=== PATIENT | female | born 1940 | race Caucasian/White ===

== ENCOUNTER 2017-04-12 21:08 | Observation (INO) ==
[2017-04-12] MEDS ORDERED: Aspirin 81 MG TAB.CHEW PO ONE (21:10)
[2017-04-12] MEDS ORDERED: 0.9 % Sodium Chloride 500 ML IVC ONE (21:10)
[2017-04-12 21:50] LABS: Basophils % 0.7 %; Eosinophils # 0.4 K/mcL (0.0-0.6); Eosinophils % 6.9 %; Hematocrit 32.4 % (35.3-44.9); Hemoglobin 10.7 g/dL (11.5-15.4); Immature Granulocytes % 0.4 % (0-4); Lymphocytes # 1.7 K/mcL (0.6-4.6); Lymphocytes % 30.5 %; Mean Corpuscular Hemoglobin 30.9 pg (28.0-33.3); Mean Corpuscular Volume 93.6 fL (83.0-100.0); Mean Platelet Volume 10.5 fL (9.4-12.4); Monocytes # 0.4 K/mcL (0.0-1.3); Monocytes % 7.4 %; Platelet Count 224 K/mcL (140-400); Red Blood Count 3.46 M/mcL (3.82-4.97); Red Cell Distribution Width 13.6 % (11.5-14.5); Segmented Neutrophils % 54.1 %
[2017-04-12 21:54] LABS: INR 1.3; Prothrombin Time 14.1 Seconds (9.4-12.1)
[2017-04-12 21:57] LABS: Activated Partial Thrombo Time 43.4 Seconds (26.0-36.0)
[2017-04-12] MEDS: Nitroglycerin 0.4 MG TAB.SUBL SL ONE ×3 (22:00→22:10)
[2017-04-12 22:04] LABS: Alanine Aminotransferase 39 Units/L (0-55); Albumin 3.6 g/dL (3.5-5.0); Albumin/Globulin Ratio 1.4 (1.1-2.2); Alkaline Phosphatase 21 Units/L (38-126); Aspartate Amino Transferase 67 Units/L (5-34); BUN/Creatinine Ratio 27 (6-26); Bilirubin,Direct 0.1 mg/dL (0.0-0.5); Bilirubin,Indirect 0.2 mg/dL (0.0-1.2); Bilirubin,Total 0.3 mg/dL (0.2-1.2); Blood Urea Nitrogen 20 mg/dL (7-20); Calcium 8.5 mg/dL (8.6-10.8); Carbon Dioxide 29 mEq/L (19-29); Chloride 100 mEq/L (98-109); Globulin 2.5 g/dL (2.4-3.5); Glucose 147 mg/dL (70-99); Lipase 53 Units/L (8-78); Osmolality,Calculated 289 (280-300); Potassium 3.8 mEq/L (3.5-4.5); Sodium 137 mEq/L (136-145); Total Protein 6.1 g/dL (6.0-8.3); eGFR For African Americans > 60 (> 60); eGFR For Non-African Americans > 60 (> 60)
--- NOTE | 2017-04-12 22:34 | Emergency Department Note ---
Disposition Clinical Impression: Syncope Qualifiers: Syncope type: unspecified Qualified Code(s): R55 - Syncope and collapse Closed head injury Qualifiers: Encounter type: initial encounter Qualified Code(s): S09.90XA - Unspecified injury of head, initial encounter Fall Qualifiers: Encounter type: initial encounter Qualified Code(s): W19.XXXA - Unspecified fall, initial encounter Chest pain Qualifiers: Chest pain type: unspecified Qualified Code(s): R07.9 - Chest pain, unspecified Disposition: Admitted As Inpatient Condition: Good Forms: ED Satisfaction Letter Time of Disposition: 22:50 General Adult HPI - General Chief complaint: ED Chest Pain Stated complaint: chest pain Time Seen by Provider: 04/12/17 21:09 Source: EMS Limitations: no limitations Nursing Notes Reviewed: Yes Vital Signs Reviewed: Yes - History of Present Illness HPI Narrative: Patient presents her home by EMS for evaluation of chest pain status post syncopal event today. Patient said she was walking through her holosystolic Felicity Cutler headache and then woke up on the floor. After the event she started chest pain. Denies any other issues at this time. Patient was just seen and evaluated in the hospital for angina and was discharged home after having a car stress test performed Onset (ago): Just COORDINATING PRODUCER Location: head, chest Radiation: non-radiation Pain Scale: 5 Quality: sharp Consistency: constant Improves with: nothing Worsens with: nothing Associated symptoms: Reports: headaches Treatments Prior to Arrival: none - Related Data Home Medications Medication Instructions Recorded Confirmed Atorvastatin [Lipitor] 20 mg PO HS 04/10/15 04/12/17 Buspirone [Buspar] 15 mg PO TID 04/17/15 04/12/17 Cyclosporine [Restasis] 1 drop OP BID 11/19/15 04/12/17 Sertraline [Zoloft] 100 mg PO DAILY 11/19/15 04/12/17 Fish Oil/Dha/Epa [Fish Oil 1,200 1,200 mg PO DAILY 03/29/16 04/12/17 mg Fish Oil] Fluticasone Propionate Nasal 1 spray NS DAILY 03/29/16 04/12/17 [Flonase] Polyvinyl Alcohol/Povidone/Pf 1 drop OP QID 03/29/16 04/12/17 [Refresh Classic Eye Drops] metFORMIN [Glucophage] 1,000 mg PO BIDWM 04/08/16 04/12/17 clonazePAM [Klonopin] 0.5 mg PO TID 06/04/16 04/12/17 Amlodipine Besylate 10 mg PO DAILY 08/29/16 04/12/17 Lisinopril [Zestril] 40 mg PO DAILY 08/29/16 04/12/17 hydroCHLOROthiazide 25 mg PO DAILY 08/29/16 04/12/17 [Hydrochlorothiazide] Bimatoprost [Lumigan] 1 drop OP HS 03/23/17 04/12/17 Diphenoxylate/Atropine [Lomotil 1 each PO TID PRN 03/23/17 04/12/17 2.5 mg/0.025 mg] Loperamide HCl [Anti-Diarrheal] 2 mg PO QID PRN 03/23/17 04/12/17 Doxycycline Hyclate [Morgidox] 50 mg PO DAILY 04/12/17 04/12/17 Omeprazole [PriLOSEC] 40 mg PO DAILY 04/12/17 04/12/17 Previous Rx's Medication Instructions Recorded Carvedilol [Coreg] 6.25 mg PO BIDWM #60 tablet 04/01/16 Nitroglycerin 0.4 mg SL Q5MIN PRN #30 tab.subl 04/01/16 MDD 3 dose Rivaroxaban [Xarelto] 20 mg PO DAILY #7 tablet 11/26/16 Allergies Allergy/AdvReac Type Severity Reaction Status Date / Time clonidine Allergy Swelling Verified 11/27/16 20:58 of Lip/Tongue/Throat citalopram [From Celexa] AdvReac Hypertensio Verified 11/27/16 20:58 n All systems ED: reviewed and negative except as stated. Review of Systems: As Per HPI Constitutional: Denies: fever, chills, weakness Eyes: Denies: eye pain, vision change Cardiovascular: Reports: chest pain, syncope. Denies: palpitations, dyspnea on exertion, orthopnea, edema Respiratory: Denies: cough, dyspnea, wheezes, hemoptysis Gastrointestinal: Denies: abdominal pain, nausea, vomiting, diarrhea, constipation Genitourinary: Denies: urgency, dysuria, frequency, hematuria Musculoskeletal: Denies: back pain, neck pain Neurological: Reports: headache. Denies: weakness, numbness Psychiatric: Reports: anxiety. Denies: depression, suicidal thoughts, homicidal thoughts Endocrine: Denies: fatigue Past Medical History - Past Medical History Attestation: Yes The following information was validated with the patient. Source: patient Medical history: Reports: arthritis, coronary artery disease, DVT, diabetes, hyperlipidemia, hypertension, osteoporosis, RA, other Surgical history: Reports: carotid endarterectomy (Bilateral), cataract (Left), hysterectomy (One ovary remains), splenectomy, other Psychiatric history: Reports: no psych history, anxiety, depression ORCHARD HAND history: Reports: no ORCHARD HAND history - Social History Smoking Status: Never smoker Smokeless Tobacco Status: No Alcohol use: Reports: none Drug use: Reports: none Physical Exam - General Limitations: no limitations General appearance: alert, in no apparent distress - Head Head exam: atraumatic, normocephalic, normal inspection - Eye Eye exam: Present: normal appearance, PERRL, EOMI. Absent: miosis, mydriasis - ENT ENT exam: normal exam, normal oropharynx, mucous membranes moist - Neck Neck exam: Present: normal inspection, full ROM, trachea midline. Absent: tenderness, meningismus, lymphadenopathy - Chest Chest inspection: Present: normal inspection, symmetric chest wall rise. Absent : tenderness - Respiratory Respiratory exam: Present: normal lung sounds bilaterally. Absent: respiratory distress, wheezes, accessory muscle use - Cardiovascular Cardiovascular exam: Present: regular rate, normal rhythm, normal heart sounds - Abdominal Exam Abdominal exam: Present: soft, Non-Tender, normal bowel sounds. Absent: tenderness, distention, guarding, rebound, rigidity, obturator sign, Davison's sign, Rovsing's sign, tenderness at McBurney's Point - Extremities Exam Extremities exam: Present: normal inspection, full ROM, normal capillary refill. Absent: tenderness - Back Exam Back exam: Present: normal inspection, full ROM. Absent: tenderness, CVA tenderness (R), CVA tenderness (L) - Neurological Exam Neurological exam: Present: alert, oriented X3, CN II-XII intact, normal gait - Psychiatric Psychiatric exam: Present: depressed, anxious - Skin Skin exam: Present: warm, dry, intact, normal color Course Course Narrative: Patient seen and examined the time of arrival. See history of present illness. Patient presents emergency room by EMS for evaluation of chest discomfort status post syncopal event today. She was just discharged from the hospital within last 24 hours. She was seen and evaluated for chest pain at time of discharge home with a diagnosis of angina. Patient was home for just under 16 hours prior to having this event today. She denied any other trauma accident in the back of her head. Since then she has had discomfort in the back of her head but no pain in her neck. Prior to the Patient denied any palpitations chest pain fevers chills nausea vomiting or diarrhea. Denied any medication usage or cane in medications time. She has known anxiety with panic related issues but this feels different to her at this time. Vital signs on presentation otherwise stable. EKG reviewed from the ambulance shows normal sinus rhythm. EKG completed here in our emergency room shows sinus rhythm as compared to EKG performed 2 days ago and is identical morphology. Patient does not show any acute signs of tachycardia. Patient on physical exam is resting comfortably in the bed her head is atraumatic her pupils are equal round and reactive to light. She has no midline tenderness to the cervical thoracic or lumbar spine. She has no gross deformity to the extremities. Lungs are clear heart is regular. She has no crepitus or deformity to the chest wall status post a fall. Her chest pain symptoms are not reproducible on exam. Abdomen is soft nontender nondistended no guarding or rigidity. She has no pitting edema in lower extremities and is no other visible signs of trauma. Patient is concerning for head related injury as well as cardiac source to her syncopal event here today. Anginal symptoms at this time could be status post trauma or anxiety driven but the etiology is concerning secondary to they describe syncopal issue today. CT imaging of the chest chest x-ray EKG troponin labs including detailed cardiac evaluation to be completed at this time. Chest x-ray also pending. Disposition will most likely be admission to the hospital for definitive management of syncopal event here today. - Reevaluation(s) Reevaluation #1: CT imaging of the head is negative for acute intracranial pathology. There is no bleeding noted on exam. Chest is negative for acute infiltrate or infectious etiology. Labs appear stable and at baseline. Hemoglobin is baseline at this time. Troponin is negative. Patient 8 as well as the family discussed the recommendation for admission secondary to syncopal event. There both comfortable with this plan. Patient will be admitted to the hospital this time for syncopal evaluation and anginal-like presentation. Patient is otherwise stable at this point comfortable in the bed pain medication provided after 3 nitroglycerin tablets did not help with her symptoms for chest pain at this point Time: 22:47 Reevaluation #2: Patient was discussed with the hospitalist Dr. loco. Detailed review of the presentation symptoms and recent medical evaluation were discussed. No other recommendations from him at this time. We will continue to monitor here and so the admission process is completed. Time: 23:08 Vital Signs Temperature 98 F 04/12/17 21:09 Pulse Rate 60 04/12/17 21:09 Respiratory Rate 18 04/12/17 21:09 Blood Pressure 137/72 04/12/17 21:09 O2 Sat by Pulse Oximetry 96 04/12/17 21:09 Temperature 98 F 04/12/17 21:09 Pulse Rate 60 04/12/17 21:39 Respiratory Rate 18 04/12/17 21:39 Blood Pressure 130/66 04/12/17 21:39 O2 Sat by Pulse Oximetry 98 04/12/17 21:39 Oxygen Delivery Oxygen Delivery Room Air Medical Decision Making - MDM Narrative Medical decision making narrative: Syncope, chest pain, fall, closed head injury - Medical Records Medical records reviewed: Yes I reviewed the patient's medical records. - Lab Data Lab results reviewed: Yes I reviewed the patient's lab results. Result diagrams: 04/12/17 21:36 04/12/17 21:36 Lab Results 04/12/17 04/12/17 04/12/17 Range/Units 21:36 21:36 21:36 WBC 5.5 (4.3-11.1) K/mcL RBC 3.46 L (3.82-4.97) M/mcL Hgb 10.7 L (11.5-15.4) g/dL Hct 32.4 L (35.3-44.9) % MCV 93.6 (83.0-100.0) fL MCH 30.9 (28.0-33.3) pg MCHC 33.0 (31.6-35.5) g/dL RDW 13.6 (11.5-14.5) % Plt Count 224 (140-400) K/mcL MPV 10.5 (9.4-12.4) fL Immature Gran % 0.4 (0-4) % Seg Neutrophils % 54.1 % Lymphocytes % 30.5 % Monocytes % 7.4 % Eosinophils % 6.9 % Basophils % 0.7 % Neutrophils # 3.0 (1.6-8.9) K/mcL Lymphocytes # 1.7 (0.6-4.6) K/mcL Monocytes # 0.4 (0.0-1.3) K/mcL Eosinophils # 0.4 (0.0-0.6) K/mcL Basophils # 0.0 (0.0-0.2) K/mcL PT 14.1 H (9.4-12.1) Seconds INR 1.3 APTT 43.4 H (26.0-36.0) Seconds Sodium (136-145) mEq/L Potassium (3.5-4.5) mEq/L Chloride (98-109) mEq/L Carbon Dioxide (19-29) mEq/L BUN (7-20) mg/dL Creatinine (0.57-1.11) mg/dL Est GFR ( Amer) (> 60) Est GFR (Non-Af Amer) (> 60) BUN/Creatinine Ratio (6-26) Glucose (70-99) mg/dL Calculated Osmolality (280-300) Calcium (8.6-10.8) mg/dL Total Bilirubin (0.2-1.2) mg/dL Direct Bilirubin (0.0-0.5) mg/dL Indirect Bilirubin (0.0-1.2) mg/dL AST (5-34) Units/L ALT (0-55) Units/L Alkaline Phosphatase (38-126) Units/L Troponin I (0-0.03) ng/mL B-Natriuretic Peptide 36 (0-100) pg/mL Serum Total Protein (6.0-8.3) g/dL Albumin (3.5-5.0) g/dL Globulin (2.4-3.5) g/dL Albumin/Globulin Ratio (1.1-2.2) Lipase (8-78) Units/L 04/12/17 04/12/17 Range/Units 21:36 21:36 WBC (4.3-11.1) K/mcL RBC (3.82-4.97) M/mcL Hgb (11.5-15.4) g/dL Hct (35.3-44.9) % MCV (83.0-100.0) fL MCH (28.0-33.3) pg MCHC (31.6-35.5) g/dL RDW (11.5-14.5) % Plt Count (140-400) K/mcL MPV (9.4-12.4) fL Immature Gran % (0-4) % Seg Neutrophils % % Lymphocytes % % Monocytes % % Eosinophils % % Basophils % % Neutrophils # (1.6-8.9) K/mcL Lymphocytes # (0.6-4.6) K/mcL Monocytes # (0.0-1.3) K/mcL Eosinophils # (0.0-0.6) K/mcL Basophils # (0.0-0.2) K/mcL PT (9.4-12.1) Seconds INR APTT (26.0-36.0) Seconds Sodium 137 (136-145) mEq/L Potassium 3.8 (3.5-4.5) mEq/L Chloride 100 (98-109) mEq/L Carbon Dioxide 29 (19-29) mEq/L BUN 20 (7-20) mg/dL Creatinine 0.75 (0.57-1.11) mg/dL Est GFR ( Amer) > 60 (> 60) Est GFR (Non-Af Amer) > 60 (> 60) BUN/Creatinine Ratio 27 H (6-26) Glucose 147 H (70-99) mg/dL Calculated Osmolality 289 (280-300) Calcium 8.5 L (8.6-10.8) mg/dL Total Bilirubin 0.3 (0.2-1.2) mg/dL Direct Bilirubin 0.1 (0.0-0.5) mg/dL Indirect Bilirubin 0.2 (0.0-1.2) mg/dL AST 67 H (5-34) Units/L ALT 39 (0-55) Units/L Alkaline Phosphatase 21 L (38-126) Units/L Troponin I 0.00 (0-0.03) ng/mL B-Natriuretic Peptide (0-100) pg/mL Serum Total Protein 6.1 (6.0-8.3) g/dL Albumin 3.6 (3.5-5.0) g/dL Globulin 2.5 (2.4-3.5) g/dL Albumin/Globulin Ratio 1.4 (1.1-2.2) Lipase 53 (8-78) Units/L - Radiology Data Radiology results reviewed: Yes I reviewed the patient's radiology results. CT of the head are negative for acute pathology chest x-ray stable no signs of infiltrate - EKG Data EKG #1 EKG attestation: Yes I reviewed and interpreted this EKG. EKG shows normal: sinus rhythm, axis, intervals, QRS complexes, ST-T waves Rate: normal Rhythm: NSR [place]/QRS: normal When compared to previous EKG there are: no significant changes Interpretation: no acute changes, unchanged when compared to prior tracing (date ) (04/09/2017)
[2017-04-12] MEDS ORDERED: *HR* Morphine 2 MG/ML SYRINGE IVP ONE (22:35)
[2017-04-12] MEDS ORDERED: Ondansetron 4 MG/2 ML VIAL IVP ONE (22:35)
[2017-04-12 23:30] LABS: Bilirubin,Urine Negative (Negative); Blood,Urine Negative (Negative); Clarity,Urine Clear (Clear); Color,Urine Yellow (Yellow); Glucose,Urine (UA) Normal (Normal); Ketones,Urine Negative (Negative); Leukocyte Esterase,Urine Trace (Negative); Nitrite,Urine Negative (Negative); PH,Urine 6.5 pH Units (5.0-8.0); Protein,Urine Negative (Neg-Trace); Urobilinogen,Urine Normal (Normal)
[2017-04-12 23:32] LABS: Bacteria,Urine None Seen per hpf (None-Few); Hyaline Casts,Urine None Seen per lpf (None-Few); RBC,Urine 0-3 per hpf (0-3); Squamous Epithelial Cell,Urine Moderate per lpf (None-Few)
[2017-04-12 23:36] LABS: Amphetamine Screen,Urine Negative ng/mL (Cutoff=1000); Barbiturate Screen,Urine Negative ng/mL (Cutoff=200); Benzodiazepines Screen,Urine Negative ng/mL (Cutoff=200); Cannabinoid Screen,Urine Negative ng/mL (Cutoff = 50); Cocaine Screen,Urine Negative ng/mL (Cutoff= 300); Opiate Screen,Urine Positive ng/mL (Cutoff=300); Phencyclidine Screen,Urine Negative ng/mL (Cutoff=25)
[2017-04-13] MEDS ORDERED: Nitroglycerin 0.4 MG TAB.SUBL SL PRN (01:37)
[2017-04-13] MEDS ORDERED: Acetaminophen 325 MG TABLET PO PRN (01:39)
[2017-04-13] MEDS ORDERED: Ondansetron 4 MG/2 ML VIAL IVP PRN (01:39)
[2017-04-13] MEDS ORDERED: Naloxone 0.4 MG/ML INJ IVP PRN (01:39)
[2017-04-13] MEDS ORDERED: 0.9 % Sodium Chloride 1,000 ML IVC SCH (01:45)
--- NOTE | 2017-04-13 03:10 | Internal Med History&Physical ---
Date of Encounter: 04/13/17 Time of Encounter: 03:10 Assessment and Plan (1) Anxiety Current visit: No Status: Chronic She suffers with significant anxiety. We will treat this with Ativan. (2) CAD (coronary artery disease) Current visit: No Status: Chronic Upon medical records reviewed cardiac catheterization report from March 2016 reveals mild nonobstructive CAD. At that time no intervention was needed. Patient has chest pain, recent negative stress test during her prior admission, echocardiogram was normal with an ejection fraction of 65%. I am concerned for cardiac arrhythmia and therefore wall place patient on telemetry, trend troponin , consult cardiology in the morning. Qualifiers: Coronary Disease-Associated Artery/Lesion type: unspecified vessel or lesion type [place] vs. transplanted heart: [place] heart Associated angina: angina presence unspecified Qualified Code(s): I25.10 - Atherosclerotic heart disease of [place] coronary artery without angina pectoris (3) Syncope Current visit: Yes Status: Acute We will initiate a workup for cardiogenic syncope with troponin, cardiac telemetry, consult cardiology. Echocardiogram and stress test noted to be within the normal limits. We will check orthostatic vital signs to rule out hypotension as a possible cardiac cause for her syncope. Qualifiers: Syncope type: unspecified Qualified Code(s): R55 - Syncope and collapse (4) Chest pain Current visit: Yes Status: Acute Likely musculoskeletal due to chest wall bruising from fall. We will treat this with [place]. Qualifiers: Chest pain type: unspecified Qualified Code(s): R07.9 - Chest pain, unspecified Internal Medicine - H&P: HPI Chief complaint: Syncope Admitted From: Home Plans for Post Hospital Care: Home History of present illness: Ms. Lopez is a 76 year old female with past medical history significant for hypertension diabetes and coronary artery disease who was recently admitted and evaluated for chest pain and discharged home and who presented to the hospital today for evaluation of syncope. Patient was in her usual state of health until this afternoon when ambulating at home he lost consciousness and fell to the floor and hit the back of her head. She did not notice any bleeding and upon regaining consciousness she has not experienced midsternal chest pain. She was brought to the emergency department for her initial workup was negative. She was given nitroglycerin which did not alleviate the pain. Past Med Surg Social Fam HX - Past Medical History Medical history: arthritis, coronary artery disease, DVT, diabetes, hyperlipidemia, hypertension, osteoporosis, RA, other Psychiatric history: anxiety, depression - Past Surgical History Surgical History: carotid endarterectomy, cataract, hysterectomy, splenectomy, other - Social History Smoking Status: Former smoker Packs per day: Stopped smoking 25 years ago. Smokeless Tobacco Status: No Alcohol use: none Drug use: none - Family History Mother Living Status: Age at : 60 Cause of : Stroke Hx Family Cardiac Disorders: Yes (HTN) Hx Family Neurologic Disorders: Yes (Stroke) Father Living Status: Age at : 74 Cause of : PR Hx Family Cardiac Disorders: Yes Maternal Adopted: No Family Member Ethnicity: Non- Living Status: Hx Family Cardiac Disorders: Yes (HTN) Hx Family Respiratory Disorders: No Hx Family Cancer: No Hx Family GI Disorders: No Hx Family Endocrine Disorder: No Hx Family Neuromuscular Disorders: No Hx Family Neurologic Disorders: Yes (CVA) Hx Family HEENT Disorders: No Hx Family Autoimmune Disorders: No Internal Medicine - H&P: Meds Atorvastatin [Lipitor] 20 mg PO HS 04/10/15 [History] Buspirone [Buspar] 15 mg PO TID 04/17/15 [History] Cyclosporine [Restasis] 1 drop OP BID 11/19/15 [History] Sertraline [Zoloft] 100 mg PO DAILY 11/19/15 [History] Fish Oil/Dha/Epa [Fish Oil 1,200 mg Fish Oil] 1,200 mg PO DAILY 03/29/16 [ History] Fluticasone Propionate Nasal [Flonase] 1 spray NS DAILY 03/29/16 [History] Polyvinyl Alcohol/Povidone/Pf [Refresh Classic Eye Drops] 1 drop OP QID [History] Carvedilol [Coreg] 6.25 mg PO BIDWM #60 tablet 04/01/16 [Rx] Nitroglycerin 0.4 mg SL Q5MIN PRN #30 tab.subl MDD 3 dose 04/01/16 [Rx] metFORMIN [Glucophage] 1,000 mg PO BIDWM 04/08/16 [History] clonazePAM [Klonopin] 0.5 mg PO TID 06/04/16 [History] Amlodipine Besylate 10 mg PO DAILY 08/29/16 [History] Lisinopril [Zestril] 40 mg PO DAILY 08/29/16 [History] hydroCHLOROthiazide [Hydrochlorothiazide] 25 mg PO DAILY 08/29/16 [History] Rivaroxaban [Xarelto] 20 mg PO DAILY #7 tablet 11/26/16 [Rx] Bimatoprost [Lumigan] 1 drop OP HS 03/23/17 [History] Diphenoxylate/Atropine [Lomotil 2.5 mg/0.025 mg] 1 each PO TID PRN 03/23/17 [ History] Loperamide HCl [Anti-Diarrheal] 2 mg PO QID PRN 03/23/17 [History] Doxycycline Hyclate [Morgidox] 50 mg PO DAILY 04/12/17 [History] Omeprazole [PriLOSEC] 40 mg PO DAILY 04/12/17 [History] 3 Allergy/AdvReac Type Severity Reaction Status Date / Time clonidine Allergy Swelling Verified 11/27/16 20:58 of Lip/Tongue/Throat citalopram [From Celexa] AdvReac Hypertensio Verified 11/27/16 20:58 n All Systems PM: A 10-system review of systems was performed and is negative for pertinent findings except as documented above in the HPI. - Constitutional Vitals: Temp Pulse Resp BP Pulse Ox 98.3 F 59 12 135/68 99 04/12/17 23:50 04/12/17 23:50 04/12/17 23:50 04/12/17 23:50 04/12/17 23:50 General appearance: Present: A&O X 3 - Eye Eye exam: Present: PERRL, conjuntiva pink, sclera anicteric Pupils: Present: PERRL - Respiratory Respiratory exam: Present: CTAB. Absent: accessory muscle use, rales, rhonchi, wheezes - Cardiovascular Cardiovascular exam: Present: RRR, +S1, +S2. Absent: diastolic murmur, gallop, rubs, systolic murmur - GI/Abdominal GI/Abdominal exam: Present: normal bowel sounds, soft, no peritoneal signs. Absent: distended, tenderness - Extremities Exam Extremities exam: Present: warm, radial pulses palpable and symmetrical. Absent : calf tenderness, cyanotic, pedal edema - Neurological Exam Neurological exam: Present: CN II-XII intact, oriented X3, no focal deficits. Absent: pronater drift, facial droop, speech deficit - Skin Skin exam: Present: dry, intact Internal Med - H&P Results - Labs CBC & Chem 7: 04/12/17 21:36 04/12/17 21:36 Labs: Urine 04/12/17 Range/Units 23:20 Urine Color Yellow (Yellow) Urine Clarity Clear (Clear) Urine pH 6.5 (5.0-8.0) pH Units Ur Specific [place] 1.010 (1.010-1.025) Urine Protein Negative (Neg-Trace) mg/dL Urine Glucose (UA) Normal (Normal) mg/dL
[2017-04-13] MEDS: *HR* Morphine 2 MG/ML SYRINGE IVP PRN ×4 (04:42→22:47)
[2017-04-13 05:03] LABS: Basophils % 0.4 %; Eosinophils # 0.4 K/mcL (0.0-0.6); Eosinophils % 6.4 %; Hemoglobin 9.4 g/dL (11.5-15.4); Immature Granulocytes % 0.2 % (0-4); Lymphocytes # 1.8 K/mcL (0.6-4.6); Mean Corpuscular HGB Conc 32.4 g/dL (31.6-35.5); Mean Corpuscular Volume 95.7 fL (83.0-100.0); Mean Platelet Volume 11.1 fL (9.4-12.4); Monocytes # 0.5 K/mcL (0.0-1.3); Monocytes % 8.7 %; Platelet Count 184 K/mcL (140-400); Red Blood Count 3.03 M/mcL (3.82-4.97); Red Cell Distribution Width 13.8 % (11.5-14.5); Segmented Neutrophils % 53.3 %
[2017-04-13 05:17] LABS: BUN/Creatinine Ratio 24 (6-26); Blood Urea Nitrogen 16 mg/dL (7-20); Calcium 8.1 mg/dL (8.6-10.8); Carbon Dioxide 32 mEq/L (19-29); Chloride 103 mEq/L (98-109); Glucose 86 mg/dL (70-99); Magnesium 1.3 mg/dL (1.6-2.6); Osmolality,Calculated 288 (280-300); Sodium 139 mEq/L (136-145); eGFR For African Americans > 60 (> 60); eGFR For Non-African Americans > 60 (> 60)
[2017-04-13] MEDS: clonazePAM 1 MG TABLET PO SCH ×3 (08:15→21:54)
[2017-04-13] MEDS: *HR* Rivaroxaban 10 MG TABLET PO SCH (08:15)
[2017-04-13] MEDS: Lisinopril 20 MG TABLET PO SCH (08:16)
[2017-04-13] MEDS: amLODIPine 5 MG TABLET PO SCH (08:16)
[2017-04-13] MEDS: (Cyclosporine [Restasis] 1 DROP) OP SCH ×2 (08:17→21:57)
[2017-04-13] MEDS: Artificial Tears SOLN 15 ML BOTTLE OP SCH ×4 (08:17→21:57)
--- NOTE | 2017-04-13 13:16 | Cardiology Consult Note ---
Date of Encounter: 04/13/17 Time of Encounter: 13:06 Assessment and Plan (1) Syncope Current Visit: Yes Status: Acute C/o unwitnessed syncopal event. C/o dizziness leading up to event. Recent cardiac work up one day earlier that was benign. Pharmacologic stress test 04/11/17- Perfusion imaging was negative for ischemia or infarct.Decreased diagnostic sensitivity of inferior ischemia secondary to prominent bowel attenuation. Pharmacologic ECG was non diagnostic for ischemia. No arrhythmias noted with stress. Patient had chest pain with stress. Gated EF = > 70%. SDS 0 The LV is not dilated. There is no evidence of TID. TTE 04/11/17-EF improved from previous. EF 65% compared to 45%-50% in March 2016. No significant valvular disease. [facility] 03/2016- mild non-obstructive CAD. EF 45%-50%. 24 hour telemetry review shows NSR. Avg HR was 62 bpm. No pauses. Minimum HR was 46 bpm at 0400. Nocturnal bradycardia seen. No daytime bradycardia. No VT. No concerning cardiac findings. Consider holter monitor at discharge. Recommend ambulating in hallway with telemetry. Qualifiers: Syncope type: unspecified Qualified Code(s): R55 - Syncope and collapse (2) Chest pain Current Visit: No Status: Resolved Chronic chest pain unchanges from previous. Extensive cardiac work-up as written above. Recent GI work-up revealed gastritis. Troponin negative x 3. No further cardiac testing. Qualifiers: Chest pain type: unspecified Qualified Code(s): R07.9 - Chest pain, unspecified (3) CAD (coronary artery disease) Current Visit: No Status: Chronic Mild non-obstructive CAD on [facility] in 2015. Recent stress test was negative. Continue medical management. Hold asa d/t recent GI bleed. On xarelto for DVT. Continue statin and bb. Qualifiers: Coronary Disease-Associated Artery/Lesion type: [place] artery [place] vs. transplanted heart: [place] heart Associated angina: with stable angina Qualified Code(s): I25.119 - Atherosclerotic heart disease of [place] coronary artery with unspecified angina pectoris (4) Takotsubo cardiomyopathy Current Visit: No Status: Suspected Discussion w patient/family: The assessment and plan as outlined above was discussed with the patient and/or family members who expressed understanding and agreement. All questions were answered. Thank you for involving us in the care of your patient. Please call with any questions. History of Present Illness Consult date: 04/13/17 Requesting physician: Jim Fitzgerald Consult reason: Syncope Chief complaint: Syncopal episode History of present illness: Ms. Lopez is a 76 year old female with a history of mild non-obstructive CAD on [facility] 03/2016, takostubo CMP EF 45%, HTN, HLD, DVT on xarelto, and recent GI bleed who presented after passing out at home. She was just discharged from the hospital that day. She was walking around her home when she suddenly became very dizzy. The next thing she remembers is waking up on her floor. She was home alone. She called her son who recommended she call for EMS. She admits to intermittent left sided chest pain that is unchanged over the last several months. The pain occurs with movement and is reproducible. She was hospitalized one week ago after undergoing out patient EGD and being found to have gastritis and hemmorhage. She received cauterization. She did restart xarelto on discharge. She c/o chest pain shortly after and was admitted to the hospital. During her stay and underwent stress test that was found to be negative. TTE showed preserved EF and no significant valvular disease. Past Med Surg Social Fam HX - Past Medical History Attestation: Yes The following information was validated with the patient. Medical history: arthritis, cardiomyopathy, coronary artery disease, DVT, diabetes, hyperlipidemia, hypertension, osteoporosis, RA, other Psychiatric history: anxiety, depression - Past Surgical History Surgical History: carotid endarterectomy, cataract, hysterectomy, splenectomy, other - Social History Smoking Status: Former smoker Packs per day: Stopped smoking 25 years ago. Smokeless Tobacco Status: No Alcohol use: none Drug use: none - Family History Mother Living Status: Age at : 60 Cause of : Stroke Hx Family Cardiac Disorders: Yes (HTN) Hx Family Neurologic Disorders: Yes (Stroke) Father Living Status: Age at : 74 Cause of : [place] Hx Family Cardiac Disorders: Yes Maternal Adopted: No Family Member Ethnicity: Non- Living Status: Hx Family Cardiac Disorders: Yes (HTN) Hx Family Respiratory Disorders: No Hx Family Cancer: No Hx Family GI Disorders: No Hx Family Endocrine Disorder: No Hx Family Neuromuscular Disorders: No Hx Family Neurologic Disorders: Yes (CVA) Hx Family HEENT Disorders: No Hx Family Autoimmune Disorders: No Medications and Allergies Atorvastatin [Lipitor] 20 mg PO HS 04/10/15 [History] Buspirone [Buspar] 15 mg PO TID 04/17/15 [History] Cyclosporine [Restasis] 1 drop OP BID 11/19/15 [History] Sertraline [Zoloft] 100 mg PO DAILY 11/19/15 [History] Fish Oil/Dha/Epa [Fish Oil 1,200 mg Fish Oil] 1,200 mg PO DAILY 03/29/16 [ History] Fluticasone Propionate Nasal [Flonase] 1 spray NS DAILY 03/29/16 [History] Polyvinyl Alcohol/Povidone/Pf [Refresh Classic Eye Drops] 1 drop OP QID [History] Carvedilol [Coreg] 6.25 mg PO BIDWM #60 tablet 04/01/16 [Rx] Nitroglycerin 0.4 mg SL Q5MIN PRN #30 tab.subl MDD 3 dose 04/01/16 [Rx] metFORMIN [Glucophage] 1,000 mg PO BIDWM 04/08/16 [History] clonazePAM [Klonopin] 0.5 mg PO TID 06/04/16 [History] Amlodipine Besylate 10 mg PO DAILY 08/29/16 [History] Lisinopril [Zestril] 40 mg PO DAILY 08/29/16 [History] hydroCHLOROthiazide [Hydrochlorothiazide] 25 mg PO DAILY 08/29/16 [History] Rivaroxaban [Xarelto] 20 mg PO DAILY #7 tablet 11/26/16 [Rx] Bimatoprost [Lumigan] 1 drop OP HS 03/23/17 [History] Diphenoxylate/Atropine [Lomotil 2.5 mg/0.025 mg] 1 each PO TID PRN 03/23/17 [ History] Loperamide HCl [Anti-Diarrheal] 2 mg PO QID PRN 03/23/17 [History] Doxycycline Hyclate [Morgidox] 50 mg PO DAILY 04/12/17 [History] Omeprazole [PriLOSEC] 40 mg PO DAILY 04/12/17 [History] 3 Allergy/AdvReac Type Severity Reaction Status Date / Time clonidine Allergy Swelling Verified 11/27/16 20:58 of Lip/Tongue/Throat citalopram [From Celexa] AdvReac Hypertensio Verified 11/27/16 20:58 n All Systems Review: A 10-system review of systems was performed and is negative for pertinent findings except as documented above in the HPI. Physical Examination Vital Signs, Last 4 Hours Temp Pulse Resp BP Pulse Ox 04/13/17 11:32 98.5 F 62 15 130/68 93 General: Conversant, No Apparent Distress, Other (frail elderly female. Appears anxious.) HEENT: Atraumatic, Normocephaly, Mucus Membranes Moist Neck: No JVD, Normal carotid pulses Cardiac: Reg Rate and Rhythm, Normal S1 and S2, No Murmur Lungs: Normal Breath Sounds, No Wheeze, Rales, Rhonchi Neuro: Alert and responsive, No focal deficits noted Abdomen: Soft, Non-Tender Skin: No rashes noted on visualized skin Musculoskeletal: No Chest Wall Tenderness Extremities: No Clubbing, No Cyanosis, No Edema, Normal Pulses Results 04/13/17 03:44 04/13/17 03:44 Lab Results 04/13/17 04/13/17 04/13/17 03:44 03:44 03:44 WBC 5.7 Hgb 9.4 L Hct 29.0 L Plt Count 184 Sodium 139 Potassium 4.0 Chloride 103 Carbon Dioxide 32 H BUN 16 Creatinine 0.66 Glucose 86 Calcium 8.1 L Magnesium 1.3 L Troponin I 0.01 04/13/17 09:14 WBC Hgb Hct Plt Count Sodium Potassium Chloride Carbon Dioxide BUN Creatinine Glucose Calcium Magnesium Troponin I 0.00 - Imaging and Cardiology Stress Test: report reviewed Echo: report reviewed Cardiac cath: report reviewed - EKG Interpretation EKG results cardiology: personally reviewed (EKG shows SB, HR [address]. [address] changes.) Consult Discharge Plan - Plan Referrals: Ward Davis MD [Primary Care Provider] - 04/19/17 10:15 am
[2017-04-13] MEDS ORDERED: Magnesium Sulfate 2 GM in D5% in Water 100 ML IVPB ONE (14:08)
--- NOTE | 2017-04-13 14:10 | Event Note ---
Date of Encounter: 04/13/17 Time of Encounter: 09:30 Patient seen and examined. On examination, patient sitting upright in bed watching television. Patient saying she was able to eat breakfast. Patient complains of left shoulder pain, left anterior chest pain, and left lateral neck pain. Patient stated she fell last night approximately 30 minutes after she took her nighttime medications. Patient states she is very anxious and concerned stating that she has never had anything like this happen before. No recent changes to her medications other than the addition of morning dose of omeprazole. Patient was discharged only a couple hours prior to this episode. She was admitted for chest pain with a stress test was negative, echocardiogram unremarkable with ejection fraction of 65% and mild diastolic dysfunction. Chest x-ray negative. Head CT negative. Urinalysis abnormal-patient denies dysuria at this time but states she has had urinary tract infections in the past. We will await urine culture. Tox screen positive for opiates-patient is not on opiates at home but she was recently discharged and could have received pain medication while admitted. Ironically, the patient is on clonazepam 3 times a day however benzos were not in her system. On examination, patient appears anxious and has full body tremors. She states this is normal for her. Her anterior chest, shoulder, neck pain are all reproducible with palpation consistent with musculoskeletal etiology. We will obtain plain films of shoulder and clavicular area as patient stating she thinks she may have injured this area during her episode. Hypomagnesemia noted; potassium normal. Will replace and trend. Cardiology is on board, appreciate their recommendations. No focal neurological weakness is present on examination-no indication for OT or PT consultation at this time. Will observe overnight and possibly discharge tomorrow pending clinical outcomes. ITS Impressions Chest X-Ray 04/12/17 21:10 IMPRESSION: 1. No acute cardiopulmonary disease. D/ : / 04/12/2017 22:08:25 Keagan Garcia MD / sreedhar Interpreting Provider: Keagan Garcia MD Head CT 04/12/17 21:21 IMPRESSION: No acute intracranial abnormality. D/ / Amadeo Mora MD / Amadeo Mora MD Interpreting Provider: Amadeo Mora MD
[2017-04-13] MEDS ORDERED: D5% in Water 1,000 ML IVC PRN (14:12)
[2017-04-13] MEDS ORDERED: *HR* Dextrose 50 % in Water (Syg) 50 ML SYRINGE IVP PRN (14:12)
[2017-04-13] MEDS ORDERED: Dextrose Gel 15 GM PO PRN ×2 (14:12)
[2017-04-13] MEDS: Insulin LISPRO 300 UNITS/3 ML VIAL SQ SCH (17:09)
--- NOTE | 2017-04-13 18:35 | Electrocardiograph Report ---
[address] [address] Test Date: 2017-04-12 Pat Name: Graciela Lopez Department: 104 Room: 3B34 Gender: F Dam Operator: : 1940 Requested By: Elroy Enriquez Order Number: [id number] Reading MD: Brianna Martínez Measurements Intervals [place] Rate: 60 P: 47 PA: 195 QRS: 17 QRSD: 88 T: 58 QT: 395 QTc: 396 Interpretive Statements SINUS RHYTHM Electronically Signed On 04-13-2017 18:33:51 EDT by Brianna Martínez
[2017-04-13] MEDS ORDERED: Insulin LISPRO 300 UNITS/3 ML VIAL SQ SCH (21:00)
[2017-04-13] MEDS ORDERED: Latanoprost 2.5 ML BOTTLE BOTH EYES SCH (21:00)
[2017-04-14] MEDS: *HR* Morphine 2 MG/ML SYRINGE IVP PRN ×3 (04:35→15:23)
[2017-04-14 05:29] LABS: BUN/Creatinine Ratio 27 (6-26); Blood Urea Nitrogen 19 mg/dL (7-20); Calcium 8.2 mg/dL (8.6-10.8); Carbon Dioxide 30 mEq/L (19-29); Chloride 104 mEq/L (98-109); Glucose 136 mg/dL (70-99); Magnesium 1.7 mg/dL (1.6-2.6); Osmolality,Calculated 290 (280-300); Potassium 4.6 mEq/L (3.5-4.5); Sodium 138 mEq/L (136-145); eGFR For African Americans > 60 (> 60); eGFR For Non-African Americans > 60 (> 60)
[2017-04-14] MEDS: Insulin LISPRO 300 UNITS/3 ML VIAL SQ SCH ×2 (07:49→11:59)
[2017-04-14] MEDS: amLODIPine 5 MG TABLET PO SCH (08:47)
[2017-04-14] MEDS: clonazePAM 1 MG TABLET PO SCH ×2 (08:47→15:23)
[2017-04-14] MEDS: *HR* Rivaroxaban 10 MG TABLET PO SCH (08:47)
[2017-04-14] MEDS: Lisinopril 20 MG TABLET PO SCH (08:47)
[2017-04-14] MEDS: Artificial Tears SOLN 15 ML BOTTLE OP SCH ×2 (08:48→13:57)
[2017-04-14] MEDS: (Cyclosporine [Restasis] 1 DROP) OP SCH (08:48)
--- NOTE | 2017-04-14 15:13 | Discharge Summary ---
Date of Encounter: 04/14/17 Time of Encounter: 14:15 - Discharge Diagnosis (1) Syncope Priority: Primary Status: Acute Comments: Unclear etiology. Extensive cardiac workup unremarkable. Cleared per cardiology for outpatient follow-up. Patient had just been discharged from the hospital a couple hours prior to this incident after an admission for chest pain. Suspect exhaustion and anxiety could be contributing factors. Qualifiers: Syncope type: unspecified Qualified Code(s): R55 - Syncope and collapse (2) Anxiety about health Priority: Secondary Status: Chronic (3) Anemia of chronic disease Priority: Secondary Status: Chronic Comments: Stable and consistent with her baseline. Follow up outpatient. (4) CAD (coronary artery disease) Priority: Secondary Status: Chronic Comments: Recent cardiac workup extensive and unrevealing. Follow up outpatient Qualifiers: Coronary Disease-Associated Artery/Lesion type: [place] artery [place] vs. transplanted heart: [place] heart Associated angina: with stable angina Qualified Code(s): I25.119 - Atherosclerotic heart disease of [place] coronary artery with unspecified angina pectoris (5) Chest pain Priority: Secondary Status: Chronic Comments: Cardiology was brought on board who cleared her for outpatient follow-up. Extensive cardiac workup recently without acute processes. Recent GI workup revealing gastritis. Qualifiers: Chest pain type: unspecified Qualified Code(s): R07.9 - Chest pain, unspecified (6) Diabetes mellitus Priority: Secondary Status: Chronic Comments: Controlled with an A1c of 5.8%. Follow-up outpatient. 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 Follow-up outpatient (8) HLD (hyperlipidemia) Priority: Secondary Status: Chronic Comments: Lipid panel unremarkable, continue statin and a low-cholesterol diet. (9) HTN (hypertension) Priority: Secondary Status: Chronic Comments: Hypertensive at times however during these occasions, patient was anxious with full body tremoring. Recommend close and daily blood pressure checks at home and following up outpatient. Normotensive at time of discharge. Qualifiers: Hypertension type: essential hypertension Qualified Code(s): I10 - Essential (primary) hypertension (10) BMI less than 19,adult Priority: Secondary Status: Chronic (11) DVT prophylaxis Priority: Primary Status: Acute Comments: on Xarelto - Discharge Medications Home Medications: Atorvastatin [Lipitor] 20 mg PO HS 04/10/15 [History] Buspirone [Buspar] 15 mg PO TID 04/17/15 [History] Cyclosporine [Restasis] 1 drop OP BID 11/19/15 [History] Sertraline [Zoloft] 100 mg PO DAILY 11/19/15 [History] Fish Oil/Dha/Epa [Fish Oil 1,200 mg Fish Oil] 1,200 mg PO DAILY 03/29/16 [ History] Fluticasone Propionate Nasal [Flonase] 1 spray NS DAILY 03/29/16 [History] Polyvinyl Alcohol/Povidone/Pf [Refresh Classic Eye Drops] 1 drop OP QID [History] Carvedilol [Coreg] 6.25 mg PO BIDWM #60 tablet 04/01/16 [Rx] Nitroglycerin 0.4 mg SL Q5MIN PRN #30 tab.subl MDD 3 dose 04/01/16 [Rx] metFORMIN [Glucophage] 1,000 mg PO BIDWM 04/08/16 [History] clonazePAM [Klonopin] 0.5 mg PO TID 06/04/16 [History] Amlodipine Besylate 10 mg PO DAILY 08/29/16 [History] Lisinopril [Zestril] 40 mg PO DAILY 08/29/16 [History] hydroCHLOROthiazide [Hydrochlorothiazide] 25 mg PO DAILY 08/29/16 [History] Rivaroxaban [Xarelto] 20 mg PO DAILY #7 tablet 11/26/16 [Rx] Bimatoprost [Lumigan] 1 drop OP HS 03/23/17 [History] Diphenoxylate/Atropine [Lomotil 2.5 mg/0.025 mg] 1 each PO TID PRN 03/23/17 [ History] Loperamide HCl [Anti-Diarrheal] 2 mg PO QID PRN 03/23/17 [History] Doxycycline Hyclate [Morgidox] 50 mg PO DAILY 04/12/17 [History] Omeprazole [PriLOSEC] 40 mg PO DAILY 04/12/17 [History] Allergies/Adverse Reactions: 3 Allergy/AdvReac Type Severity Reaction Status Date / Time clonidine Allergy Swelling Verified 11/27/16 20:58 of Lip/Tongue/Throat citalopram [From Celexa] AdvReac Hypertensio Verified 11/27/16 20:58 n Date of admission: 04/12/17 23:16 Primary care physician: Ward Davis MD Consults: 04/13/17 01:44 Consult to Physician [CONS] Routine Consulting Provider: Aroldo Archuleta Reason for Consult: syncope Call Completed: No 04/13/17 11:32 Consult to Special Education Teaching Assistant [CONS] Routine Reason for SW Consult: re-admit Discharging clinician: Christina South Anticipated date of discharge: 04/14/17 - Patient Status Disposition: Home, Self-Care Condition: Good Functional capacity at discharge: independent ambulation Overall status at discharge: patient is back to baseline - Discharge Instructions Follow Up With: Ward Davis MD [Primary Care Provider] - 04/19/17 10:15 am Additional Instructions: Follow-up with primary care provider as scheduled - Diet and Activity Activity: increase activity as tolerated Diet: diabetic diet, low salt diet Hospital course: Ms. Lopez is a 76 year old female with past medical history of CAD status post CEA, DVT on Xarelto, diabetes, hyperlipidemia, hypertension, are, anxiety/ depression, hysterectomy, splenectomy, former tobacco abuse. Patient presented to the emergency department chief complaint of syncopal episode. Patient was admitted and evaluated for chest pain and was discharged several hours prior to this episode. She states that she was in her usual state of health upon returning home and while she was ambulating, she states that she lost consciousness and fell onto her floor at the back of her head. She did not notice any bleeding upon regaining consciousness and denied reoccurrence of her chest pain. Workup in the emergency department unremarkable. Chest x-ray negative. Head CT negative. Patient was admitted to the hospitalist service for further evaluation and management. During this overnight admission, patient was noted to be incredibly anxious with full body tremors and tendency to perseverate on several health issues. She was able to tolerate a regular diet during this admission. She did complain of left shoulder pain-plain films of left shoulder unremarkable. Cardiology was brought on board who recommended outpatient follow-up and monitoring her blood pressure at home. No further inpatient cardiac workup was indicated given her recent extensive workup. Mild hypomagnesemia noted that resolved prior to discharge. Potassium was normal. Patient did have reproducible pain to her left anterior chest, left shoulder, and left side of her neck. Consistent with musculoskeletal etiology. No focal neurological weakness is present on examination. There was no indication for OT or PT consultations during this admission. She was observed overnight and remained asymptomatic and stable. Unclear causation of her syncopal episode however patient stating that she had just taken her nighttime medications approximately 30 minutes prior to this episode which could have been playing a part given that she is on benzos. Of note, her tox screen was positive for opiates but we had given her opiates while she was inpatient which would account for this. Abnormal urinalysis noted-urine culture mixed and suspect it was a contamination. Patient denied dysuria, no leukocytosis. She was hypertensive at times when her anxiety was elevated, recommend follow-up outpatient-no changes made to her medications. She was discharged home in stable condition with close outpatient follow-up recommended. ITS Impressions Chest X-Ray 04/12/17 21:10 IMPRESSION: 1. No acute cardiopulmonary disease. D/ / 04/12/2017 22:08:25 Keagan Garcia MD / bcarter Interpreting Provider: Keagan Garcia MD Head CT 04/12/17 21:21 IMPRESSION: No acute intracranial abnormality. D/ / Amadeo Mora MD / Amadeo Mora MD Interpreting Provider: Amadeo Mora MD Shoulder X-Ray 04/13/17 14:04 IMPRESSION: No acute osseous injury of the left shoulder. D/ / Keagan Valdez MD / Keagan Valdez MD Interpreting Provider: Keagan Valdez MD - Time Spent with Patient Total time spent providing and/or coordinating discharge services: - Constitutional Vitals: Temp Pulse Resp BP Pulse Ox 98.5 F 75 15 137/71 93 04/14/17 11:30 04/14/17 11:30 04/14/17 11:30 04/14/17 11:30 04/14/17 11:30 General appearance: Present: A&O X 3, pleasant, no acute distress, answers questions appropriately - Head Head exam: Present: atraumatic, normocephalic - Eye Eye exam: Present: PERRL, conjuntiva pink, sclera anicteric Pupils: Present: PERRL - Neck Neck exam general surgery: Present: supple, trachea midline. Absent: lymphadenopathy - Respiratory Respiratory exam: Present: CTAB. Absent: accessory muscle use, rales, respiratory distress, rhonchi, wheezes - Cardiovascular Cardiovascular exam: Present: RRR, +S1, +S2. Absent: diastolic murmur, gallop, rubs, systolic murmur - GI/Abdominal GI/Abdominal exam: Present: normal bowel sounds, soft, no peritoneal signs. Absent: distended, tenderness - Extremities Exam Extremities exam: Present: warm, radial pulses palpable and symmetrical. Absent : calf tenderness, cyanotic, pedal edema - Neurological Exam Neurological exam: Present: alert, CN II-XII intact, normal gait, oriented X3, no focal deficits, strengths equal and symetr throughout. Absent: pronater drift, facial droop, speech deficit - Psychiatric Psychiatric exam: Present: anxious. Absent: homicidal ideation, suicidal ideation - Expanded Psychiatric Exam Focused psych exam: Present: perseverating, restlessness - Skin Skin exam: Present: dry, intact, normal color, warm
[2017-04-14 15:58] VITALS: BP 147/64
== END 2017-04-14 16:58 | disposition home or self-care (01) ==
LOC: 3BNU 21:08 → EMEROO 21:08 → 3BNU 23:43
PROVIDERS: ADMIT Internal Medicine; ATTEND Registered Nurse

== ENCOUNTER 2017-04-26 11:52 | Observation (INO) ==
[2017-04-26] MEDS ORDERED: 0.9 % Sodium Chloride 1,000 ML IVC ONE (12:05)
--- NOTE | 2017-04-26 12:27 | Emergency Department Note ---
Disposition Clinical Impression: Syncope, near, Bradycardia, Symptomatic anemia Hypotension Qualifiers: Hypotension type: unspecified hypotension type Qualified Code(s): I95.9 - Hypotension, unspecified Disposition: Admitted As Inpatient Condition: Serious Time of Disposition: 13:29 Syncope HPI - General Chief Complaint: ED Dizziness Stated Complaint: weakness Time Seen by Provider: 04/26/17 11:59 Source: patient, EMS Limitations: no limitations Nursing Notes Reviewed: Yes Vital Signs Reviewed: Yes - History of Present Illness HPI Narrative: Patient is a 76-year-old female with past medical history for hypertension, CAD , DVT M a diabetes who presents after presyncope episode times one hour ago. Patient states that she was standing washing dishes when she suddenly felt lightheaded and weak. Patient mated over to a chair and sat down. Patient is unable to get up. Patient's son called EMS. Patient was discharged from hospital 1 day ago for anemia, chest pain. - Related Data Home Medications Medication Instructions Recorded Confirmed Atorvastatin [Lipitor] 20 mg PO HS 04/10/15 04/26/17 Buspirone [Buspar] 15 mg PO TID 04/17/15 04/26/17 Cyclosporine [Restasis] 1 drop OP BID 11/19/15 04/26/17 Sertraline [Zoloft] 100 mg PO DAILY 11/19/15 04/26/17 Fish Oil/Dha/Epa [Fish Oil 1,200 1,200 mg PO DAILY 03/29/16 04/26/17 mg Fish Oil] Fluticasone Propionate Nasal 1 spray NS DAILY 03/29/16 04/26/17 [Flonase] Polyvinyl Alcohol/Povidone/Pf 1 drop OP QID 03/29/16 04/26/17 [Refresh Classic Eye Drops] metFORMIN [Glucophage] 1,000 mg PO BIDWM 04/08/16 04/26/17 clonazePAM [Klonopin] 0.5 mg PO TID 06/04/16 04/26/17 Lisinopril [Zestril] 40 mg PO DAILY 08/29/16 04/26/17 hydroCHLOROthiazide 25 mg PO DAILY 08/29/16 04/26/17 [Hydrochlorothiazide] Bimatoprost [Lumigan] 1 drop OP HS 03/23/17 04/26/17 Loperamide HCl [Anti-Diarrheal] 2 mg PO QID PRN 03/23/17 04/26/17 Doxycycline Hyclate [Morgidox] 50 mg PO DAILY 04/12/17 04/26/17 Omeprazole [PriLOSEC] 40 mg PO DAILY 04/12/17 04/26/17 amLODIPine [Norvasc] 5 mg PO DAILY 04/23/17 04/26/17 Previous Rx's Medication Instructions Recorded Carvedilol [Coreg] 6.25 mg PO BIDWM #60 tablet 04/01/16 Nitroglycerin 0.4 mg SL Q5MIN PRN #30 tab.subl 04/01/16 MDD 3 dose Rivaroxaban [Xarelto] 20 mg PO DAILY #7 tablet 11/26/16 Isosorbide MONOnitrate (24 HR) 30 mg PO DAILY #30 tab 04/25/17 [Imdur] hydrOXYzine pamoate [HydrOXYzine 25 mg PO DAILY PRN #5 capsule 04/25/17 Pamoate] Allergies Allergy/AdvReac Type Severity Reaction Status Date / Time clonidine Allergy Swelling Verified 04/26/17 11:54 of Lip/Tongue/Throat citalopram [From Celexa] AdvReac Hypertensio Verified 04/26/17 11:54 n All systems ED: reviewed and negative except as stated. Review of Systems: As Per HPI Constitutional: Reports: weakness. Denies: fever, chills ENT ED: Denies: congestion Cardiovascular: Denies: chest pain, palpitations Respiratory: Denies: cough, dyspnea, wheezes Gastrointestinal: Denies: abdominal pain Musculoskeletal: Reports: back pain Neurological: Reports: weakness. Denies: headache Psychiatric: Reports: anxiety Endocrine: Reports: fatigue Past Medical History - Past Medical History Attestation: Yes The following information was validated with the patient. 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 Patient spell and appears weak. Patient has visible pallor. - General Limitations: no limitations General appearance: alert, in no apparent distress - Head Head exam: atraumatic, normocephalic, normal inspection Course - Reevaluation(s) Reevaluation #1: Labs drawn, type and screen ordered, Time: 12:06 - Consultations Consultation #1: Patient is admitted to medical service. Dr. Fitzgerald to the hospitalist has accepted the patient for admission Time: 13:29 Vital Signs Temperature 97.5 F L 04/26/17 11:54 Pulse Rate 59 04/26/17 11:54 Respiratory Rate 16 04/26/17 11:54 Blood Pressure 79/44 04/26/17 11:54 O2 Sat by Pulse Oximetry 97 04/26/17 11:54 Temperature 97.8 F 04/26/17 19:27 Pulse Rate 80 04/26/17 19:27 Respiratory Rate 14 04/26/17 19:27 Blood Pressure 113/54 04/26/17 19:27 O2 Sat by Pulse Oximetry 96 04/26/17 19:27 Oxygen Delivery Oxygen Delivery Room Air Syncope - MDM Narrative Medical decision making narrative: Patient concerning for presyncopal episode symptomatic acute anemia secondary to possible GI bleed, cardiac arrhythmia, ACS/UT, PE. EKG showed sinus rhythm with no abnormalities, patient's labs shows anemia with a with elevated hematocrit of 8.4 and 26.7 respectively. Patient's previous hemoglobin is 9.1. Patient's leukopenic at 4.1 secondary to unknown etiology and recommend further investigation. Patient's stool is Hemoccult negative. Patient is started on IV fluid resuscitation to correct for hypotension. Patient's normotensive after 2 L IV normal saline. Patient continues to exhibit global weakness but vital signs currently in normal ranges. Recommend admission for presyncope secondary to anemia. Patient was accepted for admission by Dr. Fitzgerald the hospitalist. - Lab Data Lab results reviewed: Yes I reviewed the patient's lab results. Result diagrams: 04/26/17 12:55 04/26/17 12:55 Lab Results 04/26/17 04/26/17 04/26/17 Range/Units 12:51 12:55 12:55 WBC 4.1 L (4.3-11.1) K/mcL RBC 2.70 L (3.82-4.97) M/mcL Hgb 8.4 L (11.5-15.4) g/dL Hct 26.7 L (35.3-44.9) % MCV 98.9 (83.0-100.0) fL MCH 31.1 (28.0-33.3) pg MCHC 31.5 L (31.6-35.5) g/dL RDW 13.7 (11.5-14.5) % Plt Count 173 (140-400) K/mcL MPV 10.3 (9.4-12.4) fL Immature Gran % 0.2 (0-4) % Seg Neutrophils % 74.1 % Lymphocytes % 13.5 % Monocytes % 6.6 % Eosinophils % 5.1 % Basophils % 0.5 % Neutrophils # 3.0 (1.6-8.9) K/mcL Lymphocytes # 0.6 (0.6-4.6) K/mcL Monocytes # 0.3 (0.0-1.3) K/mcL Eosinophils # 0.2 (0.0-0.6) K/mcL Basophils # 0.0 (0.0-0.2) K/mcL PT 35.8 H (9.4-12.1) Seconds INR 3.2 Sodium (136-145) mEq/L Potassium (3.5-4.5) mEq/L Chloride (98-109) mEq/L Carbon Dioxide (19-29) mEq/L BUN (7-20) mg/dL Creatinine (0.57-1.11) mg/dL Est GFR ( Amer) (> 60) Est GFR (Non-Af Amer) (> 60) BUN/Creatinine Ratio (6-26) Glucose (70-99) mg/dL Calculated Osmolality (280-300) Calcium (8.6-10.8) mg/dL Stool Occult Blood Negative (Negative) Blood Type Antibody Screen 04/26/17 04/26/17 Range/Units 12:55 12:55 WBC (4.3-11.1) K/mcL RBC (3.82-4.97) M/mcL Hgb (11.5-15.4) g/dL Hct (35.3-44.9) % MCV (83.0-100.0) fL MCH (28.0-33.3) pg MCHC (31.6-35.5) g/dL RDW (11.5-14.5) % Plt Count (140-400) K/mcL MPV (9.4-12.4) fL Immature Gran % (0-4) % Seg Neutrophils % % Lymphocytes % % Monocytes % % Eosinophils % % Basophils % % Neutrophils # (1.6-8.9) K/mcL Lymphocytes # (0.6-4.6) K/mcL Monocytes # (0.0-1.3) K/mcL Eosinophils # (0.0-0.6) K/mcL Basophils # (0.0-0.2) K/mcL PT (9.4-12.1) Seconds INR Sodium 140 (136-145) mEq/L Potassium 3.8 (3.5-4.5) mEq/L Chloride 104 (98-109) mEq/L Carbon Dioxide 27 (19-29) mEq/L BUN 18 (7-20) mg/dL Creatinine 0.91 (0.57-1.11) mg/dL Est GFR ( Amer) > 60 (> 60) Est GFR (Non-Af Amer) 60 (> 60) BUN/Creatinine Ratio 20 (6-26) Glucose 216 H (70-99) mg/dL Calculated Osmolality 298 (280-300) Calcium 8.1 L (8.6-10.8) mg/dL Stool Occult Blood (Negative) Blood Type O POSITIVE Antibody Screen NEGATIVE - Radiology Data Radiology results reviewed: Yes I reviewed the patient's radiology results. - EKG Data EKG attestation: Yes I reviewed and interpreted this EKG. EKG results narrative: EKG taken for April 2017 at 1151 hrs. shows sinus rhythm at a rate of [address] elevations or depressions namely no QRS widened QT prolongation , no [place], no [place]. Previous EKG for comparison taken in 04/23/2017 shows sinus rhythm at a rate of 74 beats minute no signs of ischemia.
[2017-04-26 13:06] LABS: INR 3.2; Prothrombin Time 35.8 Seconds (9.4-12.1)
[2017-04-26 13:08] LABS: Basophils % 0.5 %; Eosinophils # 0.2 K/mcL (0.0-0.6); Eosinophils % 5.1 %; Hematocrit 26.7 % (35.3-44.9); Hemoglobin 8.4 g/dL (11.5-15.4); Immature Granulocytes % 0.2 % (0-4); Lymphocytes # 0.6 K/mcL (0.6-4.6); Lymphocytes % 13.5 %; Mean Corpuscular HGB Conc 31.5 g/dL (31.6-35.5); Mean Corpuscular Hemoglobin 31.1 pg (28.0-33.3); Mean Corpuscular Volume 98.9 fL (83.0-100.0); Mean Platelet Volume 10.3 fL (9.4-12.4); Monocytes # 0.3 K/mcL (0.0-1.3); Monocytes % 6.6 %; Platelet Count 173 K/mcL (140-400); Red Cell Distribution Width 13.7 % (11.5-14.5); Segmented Neutrophils % 74.1 %
[2017-04-26 13:18] LABS: BUN/Creatinine Ratio 20 (6-26); Blood Urea Nitrogen 18 mg/dL (7-20); Calcium 8.1 mg/dL (8.6-10.8); Carbon Dioxide 27 mEq/L (19-29); Chloride 104 mEq/L (98-109); Glucose 216 mg/dL (70-99); Osmolality,Calculated 298 (280-300); Potassium 3.8 mEq/L (3.5-4.5); Sodium 140 mEq/L (136-145); eGFR For African Americans > 60 (> 60); eGFR For Non-African Americans 60 (> 60)
--- NOTE | 2017-04-26 15:50 | Emergency Department Note ---
START Narrative - START START: I examined this patient and my medical decision-making was reviewed with the Resident Physician. I agree with the documented findings, disposition and treatment plan as described except to the extent set forth below. Arrives hypotensive day after discharge from hospital. No infectious sx, no sx of bleeding. Hgb low but relatively stable. BP responsive to fluids, came up to 110 systolic. No chest pain, shortness of breath. Admit, hydrate; will probably need downward adjustment of BP meds.
[2017-04-26] MEDS ORDERED: Ondansetron 4 MG/2 ML VIAL IVP PRN (21:21)
[2017-04-26] MEDS ORDERED: *HR* HYDROcodone/Acet 5/325 mg TABLET PO PRN (21:21)
[2017-04-26] MEDS ORDERED: Naloxone 0.4 MG/ML INJ IVP PRN (21:21)
[2017-04-26] MEDS ORDERED: *HR* Morphine 2 MG/ML SYRINGE IVP PRN (21:21)
[2017-04-26] MEDS ORDERED: Acetaminophen 325 MG TABLET PO PRN (21:21)
[2017-04-26] MEDS ORDERED: hydrOXYzine pamoate 25 MG CAPSULE PO PRN (21:28)
[2017-04-26] MEDS ORDERED: Nitroglycerin 0.4 MG TAB.SUBL SL PRN (21:28)
[2017-04-26] MEDS ORDERED: 0.9 % Sodium Chloride 1,000 ML IVC SCH (21:30)
[2017-04-26] MEDS ORDERED: D5% in Water 1,000 ML IVC PRN (21:36)
[2017-04-26] MEDS ORDERED: Dextrose Gel 15 GM PO PRN ×2 (21:36)
[2017-04-26] MEDS ORDERED: *HR* Dextrose 50 % in Water (Syg) 50 ML SYRINGE IVP PRN (21:36)
[2017-04-26] MEDS ORDERED: Insulin LISPRO 300 UNITS/3 ML VIAL SQ SCH (21:45)
--- NOTE | 2017-04-26 21:45 | Internal Med History&Physical ---
<Alonzo Henderson - Last Filed: 04/26/17 22:23> Date of Encounter: 04/26/17 Time of Encounter: 20:30 Assessment and Plan (1) Syncope, near Current visit: Yes Status: Acute Patient presents with near syncopal episode this morning while at home. Patient reports she was just discharged from the hospital this week and has felt dizzy on and of for the past 24 hours. She denies recent illness, nausea, vomiting, fever, chills, unusual bleeding, chest pain, cough, or syncope. On examination, patient is neurologically intact and HR is WNL and RR. Patient's BP on admission to ED with was 85/55. She was given IV fluids which brought BP up to 113/54. Patient appears mildly dehydrated and will receive IV fluids at rate of 75 mL per hour. Orthostatic BPs and vital signs ordered. Monitor patient and vital signs. Continue patient HTN medications and reduce lisinopril dosing from 40 mg daily to 20 mg daily. Falls/safety precautions ordered. (2) Hypotension Current visit: Yes Status: Acute Patient presents with report of hypotension on occasion. Patient's BP on admission to ED with was 85/55. She was given IV fluids which brought BP up to 113/54. Patient appears mildly dehydrated and will receive IV fluids at rate of 75 mL per hour. Orthostatic BPs and vital signs ordered. Monitor patient and vital signs. Continue patient HTN medications and reduce lisinopril dosing from 40 mg daily to 20 mg daily. Falls/safety precautions ordered. Qualifiers: Hypotension type: unspecified hypotension type Qualified Code(s): I95.9 - Hypotension, unspecified (3) Anemia Current visit: Yes Status: Chronic Initial presents with chronic anemia. Patient's hemoglobin today is 8.4 and hematocrit 26.7. On 04/13/17, hemoglobin was 9.4 and hematocrit was 29.0. Patient has hx of fluctuating H/H and recent EGD shows no abnormalities in the colon. Fecal hemoccult today is negative. Thiamine and folic acid ordered daily. Follow-up H/H ordered. Qualifiers: Anemia type: unspecified type Qualified Code(s): D64.9 - Anemia, unspecified (4) CAD (coronary artery disease) Current visit: Yes Status: Chronic Patient presents with history of chronic coronary artery disease and is currently asymptomatic. Will continue patient's HTN and HIV medications as well as aspirin therapy. Continue Xarelto for DVT prophylaxis and anticoagulation. Patient placed on continuous cardiac telemetry. Qualifiers: Coronary Disease-Associated Artery/Lesion type: unspecified vessel or lesion type [place] vs. 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 Patient is currently on Xarelto for DVT prophylaxis. Qualifiers: DVT location: lower extremity Affected thrombotic vein of extremity: unspecified vein of extremity Chronicity: chronic Laterality: bilateral Qualified Code(s): I82.503 - Chronic embolism and thrombosis of unspecified deep veins of lower extremity, bilateral (6) Diabetes mellitus Current visit: Yes Status: Chronic Patient presents with chronic diabetes controlled with oral anti- hyperglycemics. We will hold patient's metformin and administer low-dose correction insulin with hypoglycemic protocol. Blood glucose before meals at bedtime. A1c ordered. 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 mellitus complication status: without complication Diabetes mellitus [facility] insulin use: without buttermaker use Qualified Code(s): E11.9 - Type 2 diabetes mellitus without complications (7) HLD (hyperlipidemia) Current visit: Yes Status: Chronic Patient presents with history of chronic hyperlipidemia. Lipid panel ordered and will continue patient's Lipitor. Qualifiers: Hyperlipidemia type: pure hypercholesterolemia Qualified Code(s): E78.00 - Pure hypercholesterolemia, unspecified; E78.0 - Pure hypercholesterolemia (8) HTN (hypertension) Current visit: Yes Status: Chronic Patient presents with history of chronic hypertension. Will monitor patient vital signs and continue patient's Imdur, hydrochlorothiazide, Coreg, and Norvasc. Will continue patient's lisinopril reducing dose from 40 mg daily to 20 mg daily. Qualifiers: Hypertension type: essential hypertension Qualified Code(s): I10 - Essential (primary) hypertension Internal Medicine - H&P: HPI Chief complaint: Pre-syncope/Dizziness Admitted From: Emergency Dept Plans for Post Hospital Care: Home History of present illness: Ms. Lopez is a 76 year old female with medical history of arthritis, cardiomyopathy, CAD, DVT, diabetes, HLD, HTN, osteoporosis, and RA presents from the ED with near syncopal episode this morning while at home. Patient reports she was just discharged from the hospital this week and has felt dizzy on and of for the past 24 hours. She denies recent illness, nausea, vomiting, fever, chills, unusual bleeding, chest pain, cough, or syncope. Patient does report mild lower abdominal pain in the suprapubic region and dizziness. Patient reports she was found to be sleep walking during last admission. Patient also reports that she may have taken more than one of her medications by mistake. Ms. Lopez had recent cardiac work-up with echocardiogram and nuclear stress test which showed LVEF of 65%. Patient has chronic anemia with current Hgb of 8.4 and Hct of 26.7. On 04/13 Hgb was 9.4 and Hct was 29.0. Patient denies any unusual bleeding in urine or stool. EGD on 04/07/17 showed no abnormalities or bleeding in colon. Patient is neurologically and hemodynamically stable at present and in no acute distress with normal VS. Information taken from patient, chart review, and previous medical records. Ms. Lopez is at moderate risk for further morbidity based on current symptoms and will be placed as observation status. Time spent with patient >40 minutes. Past Med Surg Social Fam HX - Past Medical History Source: patient, old records reviewed Medical history: arthritis, cardiomyopathy, coronary artery disease, DVT, diabetes, hyperlipidemia, hypertension, osteoporosis, RA, other Psychiatric history: anxiety, depression - Past Surgical History Surgical History: carotid endarterectomy, cataract, hysterectomy, splenectomy, other - Social History Smoking Status: Former smoker Smokeless Tobacco Status: No Alcohol use: none Drug use: none Current living situation: Home, With Family Activity Level: Independent ambulation Recent Out of Country Travel Within the Last 8 Weeks: No Exposure or Possible Exposure to Illness During Travel: No - Family History Mother Race: Family Member Ethnicity: Non- Living Status: Hx Family Cardiac Disorders: Yes (HTN) Hx Family Neurologic Disorders: Yes (Stroke) Father Race: Family Member Ethnicity: Non- Living Status: Hx Family Cardiac Disorders: Yes (MA) Maternal Adopted: No Race: Family Member Ethnicity: Non- Living Status: Hx Family Cardiac Disorders: Yes (HTN) Hx Family Respiratory Disorders: No Hx Family Cancer: No Hx Family GI Disorders: No Hx Family Endocrine Disorder: No Hx Family Neuromuscular Disorders: No Hx Family Neurologic Disorders: Yes (CVA) Hx Family HEENT Disorders: No Hx Family Autoimmune Disorders: No Internal Medicine - H&P: Meds Atorvastatin [Lipitor] 20 mg PO HS 04/10/15 [History] Buspirone [Buspar] 15 mg PO TID 04/17/15 [History] Cyclosporine [Restasis] 1 drop OP BID 11/19/15 [History] Sertraline [Zoloft] 100 mg PO DAILY 11/19/15 [History] Fish Oil/Dha/Epa [Fish Oil 1,200 mg Fish Oil] 1,200 mg PO DAILY 03/29/16 [ History] Fluticasone Propionate Nasal [Flonase] 1 spray NS DAILY 03/29/16 [History] Polyvinyl Alcohol/Povidone/Pf [Refresh Classic Eye Drops] 1 drop OP QID [History] Carvedilol [Coreg] 6.25 mg PO BIDWM #60 tablet 04/01/16 [Rx] Nitroglycerin 0.4 mg SL Q5MIN PRN #30 tab.subl MDD 3 dose 04/01/16 [Rx] metFORMIN [Glucophage] 1,000 mg PO BIDWM 04/08/16 [History] clonazePAM [Klonopin] 0.5 mg PO TID 06/04/16 [History] Lisinopril [Zestril] 40 mg PO DAILY 08/29/16 [History] hydroCHLOROthiazide [Hydrochlorothiazide] 25 mg PO DAILY 08/29/16 [History] Rivaroxaban [Xarelto] 20 mg PO DAILY #7 tablet 11/26/16 [Rx] Bimatoprost [Lumigan] 1 drop OP HS 03/23/17 [History] Loperamide HCl [Anti-Diarrheal] 2 mg PO QID PRN 03/23/17 [History] Doxycycline Hyclate [Morgidox] 50 mg PO DAILY 04/12/17 [History] Omeprazole [PriLOSEC] 40 mg PO DAILY 04/12/17 [History] amLODIPine [Norvasc] 5 mg PO DAILY 04/23/17 [History] Isosorbide MONOnitrate (24 HR) [Imdur] 30 mg PO DAILY #30 tab 04/25/17 [Rx] hydrOXYzine pamoate [HydrOXYzine Pamoate] 25 mg PO DAILY PRN #5 capsule [Rx] 3 Allergy/AdvReac Type Severity Reaction Status Date / Time clonidine Allergy Swelling Verified 04/26/17 11:54 of Lip/Tongue/Throat citalopram [From Celexa] AdvReac Hypertensio Verified 04/26/17 11:54 n All Systems PM: A 10-system review of systems was performed and is negative for pertinent findings except as documented above in the HPI. - Constitutional Constitutional: as per HPI, falls, no chills, no fever(s), no night sweats - EENT Eyes: no change in vision, no discharge, no pain, no photophobia Ears: no ear discharge, no ear pain, no tinnitus Nose, mouth and throat: no dysphagia, no nasal discharge, no neck pain, no sore throat - Breasts Breasts: as per HPI - Cardiovascular Cardiovascular ROS IM: as per HPI, lightheadedness, no chest pain, no diaphoresis, no dyspnea, no palpitations, no syncope - Respiratory Respiratory: no cough, no dyspnea, no wheezing, no excessive phlegm production - Gastrointestinal Gastrointestinal: no abdominal pain, no diarrhea, no hematemesis, no hematochezia, no melena, no nausea, no vomiting - Genitourinary Genitourinary: no change in urinary stream, no dysuria, no flank pain, no hematuria Menstruation: as per HPI - Musculoskeletal Musculoskeletal ROS IM: no numbness, no tingling - Integumentary Integumentary IM: no rash, no unusual bruising - Neurological Neurological ROS: as per HPI, dizziness, no confusion, no convulsions, no focal weakness, no numbness, no tingling, no tremor(s) - Psychiatric Psychiatric: as per HPI - Endocrine Endocrine IM: as per HPI - Hematologic/Lymphatic Hematologic/Lymphatic: no easy bruising - Allergic/Immunologic Allergic/Immunologic: as per HPI - Constitutional Vitals: Temp Pulse Resp BP Pulse Ox 97.8 F 80 14 113/54 96 04/26/17 19:27 04/26/17 19:27 04/26/17 19:27 04/26/17 19:27 04/26/17 20:58 General appearance: Present: cooperative, A&O X 3, pleasant, no acute distress, underweight, answers questions appropriately - Head Head exam: Present: atraumatic, normocephalic - Eye Eye exam: Present: PERRL, conjuntiva pink, sclera anicteric Pupils: Present: PERRL - ENT ENT exam: Present: normal exam, normal external ear exam - Neck Neck exam general surgery: Present: normal inspection, supple, trachea midline. Absent: lymphadenopathy - Respiratory Respiratory exam: Present: CTAB. Absent: accessory muscle use, rales, rhonchi, wheezes - Cardiovascular Cardiovascular exam: Present: RRR, +S1, +S2. Absent: diastolic murmur, gallop, rubs, systolic murmur - GI/Abdominal GI/Abdominal exam: Present: normal bowel sounds, soft, no peritoneal signs. Absent: distended, tenderness - Rectal Rectal exam: Present: deferred - Additional comments: exam deferred. - Extremities Exam Extremities exam: Present: warm, radial pulses palpable and symmetrical. Absent : calf tenderness, cyanotic, pedal edema - Back Exam Back exam: Present: normal inspection - Neurological Exam Neurological exam: Present: CN II-XII intact, oriented X3, no focal deficits. Absent: pronater drift, facial droop, speech deficit - Psychiatric Psychiatric exam: Present: normal affect, normal mood - Skin Skin exam: Present: dry, intact Internal Med - H&P Results - Labs CBC & Chem 7: 04/26/17 12:55 04/26/17 12:55 - EKG Data EKG shows normal: sinus rhythm Rate: normal - EKG Data Prior EKG available for review: yes When compared to previous EKG: there is no significant change Interpretation IM: normal EKG <Dae Deutsch - Last Filed: 04/27/17 04:02> Date of Encounter: 04/27/17 Internal Medicine - H&P: HPI History of present illness: Ms. Lpoez is a 76 year old female All Systems PM: A 10-system review of systems was performed and is negative for pertinent findings except as documented above in the HPI. - Constitutional Vitals: Temp Pulse Resp BP Pulse Ox 98.0 F 68 14 194/88 97 04/27/17 03:09 04/27/17 03:09 04/27/17 03:09 04/27/17 03:09 04/27/17 03:09 Internal Med - H&P Results - Labs CBC & Chem 7: 04/26/17 12:55 04/26/17 12:55 - Attending Attestation I saw and examined patient independently. I have discussed with HEALTH CARE LAW SPECIALIST regarding the management plan. I have reviewed and agree with the documentation. Patient admitted for near syncope, report hypotension to systolic BP 60s on site when EMS comes. Patient has a history of carotid stenosis. Will place patient on continuous cardiac monitoring, check a carotid duplex bilaterally. Check orthostatic vitals. Decreased lisinopril from 40 mg to 20 mg daily. Close monitor BP change.
[2017-04-27 04:35] LABS: Basophils % 0.8 %; Eosinophils # 0.4 K/mcL (0.0-0.6); Eosinophils % 9.1 %; Hemoglobin 8.8 g/dL (11.5-15.4); Immature Granulocytes % 0.3 % (0-4); Lymphocytes # 1.2 K/mcL (0.6-4.6); Lymphocytes % 32.1 %; Mean Corpuscular HGB Conc 32.6 g/dL (31.6-35.5); Mean Corpuscular Hemoglobin 30.3 pg (28.0-33.3); Mean Corpuscular Volume 93.1 fL (83.0-100.0); Monocytes # 0.4 K/mcL (0.0-1.3); Monocytes % 9.7 %; Neutrophils # 1.8 K/mcL (1.6-8.9); Platelet Count 312 K/mcL (140-400); Red Cell Distribution Width 13.5 % (11.5-14.5)
[2017-04-27 04:43] LABS: Activated Partial Thrombo Time 43.8 Seconds (26.0-36.0); INR 1.3
[2017-04-27 04:45] LABS: Hemoglobin A1C 6.1 %
[2017-04-27 04:57] LABS: Alanine Aminotransferase 11 Units/L (0-55); Albumin 2.7 g/dL (3.5-5.0); Alkaline Phosphatase 38 Units/L (38-126); Aspartate Amino Transferase 18 Units/L (5-34); BUN/Creatinine Ratio 22 (6-26); Blood Urea Nitrogen 15 mg/dL (7-20); Calcium 8.1 mg/dL (8.6-10.8); Carbon Dioxide 27 mEq/L (19-29); Chloride 106 mEq/L (98-109); Chol/HDL Ratio 2.4 (0-4.9); Cholesterol 104 mg/dL (< 200); Globulin 2.6 g/dL (2.4-3.5); Glucose 112 mg/dL (70-99); HDL Cholesterol 43 mg/dL (40-59); LDL Cholesterol,Calculated 53 mg/dL (0-99); Magnesium 1.1 mg/dL (1.6-2.6); Osmolality,Calculated 296 (280-300); Potassium 3.7 mEq/L (3.5-4.5); Sodium 142 mEq/L (136-145); Total Protein 5.3 g/dL (6.0-8.3); Triglycerides 42 mg/dL (< 150); eGFR For African Americans > 60 (> 60); eGFR For Non-African Americans > 60 (> 60)
[2017-04-27 05:03] LABS: Bilirubin,Total < 0.3 mg/dL (0.2-1.2)
[2017-04-27] MEDS ORDERED: Insulin LISPRO 300 UNITS/3 ML VIAL SQ SCH (07:30)
[2017-04-27] MEDS ORDERED: amLODIPine 5 MG TABLET PO SCH (09:00)
[2017-04-27] MEDS ORDERED: Artificial Tears SOLN 15 ML BOTTLE OP SCH (09:00)
[2017-04-27] MEDS ORDERED: Fluticasone Propionate Nasal 50 MCG/SPRAY BOTTLE NS SCH (09:00)
[2017-04-27] MEDS ORDERED: *HR* Rivaroxaban 10 MG TABLET PO SCH (09:00)
[2017-04-27] MEDS ORDERED: FISH OIL PO SCH (09:00)
[2017-04-27] MEDS ORDERED: Thiamine (B-1) 100 MG TABLET PO SCH (09:00)
[2017-04-27] MEDS ORDERED: hydroCHLOROthiazide 25 MG TABLET PO SCH (09:00)
[2017-04-27] MEDS ORDERED: Isosorbide MONOnitrate (24 HR) 30 MG TAB.ER.24H PO SCH (09:00)
[2017-04-27] MEDS ORDERED: Pantoprazole 40 MG VIAL IVP SCH (09:00)
[2017-04-27] MEDS ORDERED: clonazePAM 1 MG TABLET PO SCH (09:00)
[2017-04-27] MEDS ORDERED: Folic Acid 1 MG TABLET PO SCH (09:00)
[2017-04-27] MEDS ORDERED: Aspirin Enteric Coated 81 MG Tablet PO SCH (09:00)
[2017-04-27] MEDS ORDERED: (Cyclosporine [Restasis] 1 DROP) OP SCH (09:00)
--- NOTE | 2017-04-27 10:12 | Discharge Summary ---
Date of Encounter: 04/27/17 Time of Encounter: 09:00 - Discharge Diagnosis (1) Syncope, near Priority: Primary Status: Acute Comments: likely secondary to increased stressors at home, decreased PO intake, and resultant hypotension. Followup outpatient (2) Symptomatic hypotension Priority: Primary Status: Resolved (3) Anemia of chronic disease Priority: Secondary Status: Chronic Comments: Patient's anemia has slowly trended down since August of this year. She remained hemodynamically stable during this admission. Hemoccult negative. Follow-up outpatient (4) Anxiety about health Priority: Secondary Status: Chronic Comments: This is the patient's fifth EMS visit in the last 3 weeks. She states she has increased stressors at home but feels as if these issues are going to get better. Continue home anxiety medications. (5) HTN (hypertension) Priority: Secondary Status: Chronic Comments: Hypotensive upon arrival, then slowly became hypertensive overnight. Has been seen by both her primary care provider and her inspector publications within the last week. Recommend daily blood pressure checks at home, and outpatient follow-up Qualifiers: Hypertension type: essential hypertension Qualified Code(s): I10 - Essential (primary) hypertension (6) Diabetes mellitus Priority: Secondary Status: Chronic Comments: Controlled at home with an A1c of 6.1%. Follow-up outpatient. 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 mellitus complication status: without complication Diabetes mellitus longterm insulin use: without superintendent terminal use Qualified Code(s): E11.9 - Type 2 diabetes mellitus without complications (7) CAD (coronary artery disease) Priority: Secondary Status: Chronic Qualifiers: Coronary Disease-Associated Artery/Lesion type: [place] artery [place] vs. transplanted heart: [place] heart Associated angina: with stable angina Qualified Code(s): I25.118 - Atherosclerotic heart disease of [place] coronary artery with other forms of angina pectoris (8) Takotsub[place] cardiomyopathy Priority: Secondary Status: Suspected Comments: Ejection fraction has recovered, follow-up outpatient (9) HLD (hyperlipidemia) Priority: Secondary Status: Chronic Comments: Lipid panel unremarkable, continue statin. Low-cholesterol diet. Qualifiers: Hyperlipidemia type: pure hypercholesterolemia Qualified Code(s): E78.00 - Pure hypercholesterolemia, unspecified; E78.0 - Pure hypercholesterolemia (10) DVT prophylaxis Priority: Primary Status: Acute Comments: on Xarelto (11) BMI less than 19,adult Priority: Secondary Status: Chronic - Discharge Medications Prescriptions: Lisinopril [Zestril] 20 mg PO DAILY #30 tablet Home Medications: Atorvastatin [Lipitor] 20 mg PO HS 04/10/15 [History] Buspirone [Buspar] 15 mg PO TID 04/17/15 [History] Cyclosporine [Restasis] 1 drop OP BID 11/19/15 [History] Sertraline [Zoloft] 100 mg PO DAILY 11/19/15 [History] Fish Oil/Dha/Epa [Fish Oil 1,200 mg Fish Oil] 1,200 mg PO DAILY 03/29/16 [ History] Fluticasone Propionate Nasal [Flonase] 1 spray NS DAILY 03/29/16 [History] Polyvinyl Alcohol/Povidone/Pf [Refresh Classic Eye Drops] 1 drop OP QID [History] Carvedilol [Coreg] 6.25 mg PO BIDWM #60 tablet 04/01/16 [Rx] Nitroglycerin 0.4 mg SL Q5MIN PRN #30 tab.subl MDD 3 dose 04/01/16 [Rx] metFORMIN [Glucophage] 1,000 mg PO BIDWM 04/08/16 [History] clonazePAM [Klonopin] 0.5 mg PO TID 06/04/16 [History] hydroCHLOROthiazide [Hydrochlorothiazide] 25 mg PO DAILY 08/29/16 [History] Rivaroxaban [Xarelto] 20 mg PO DAILY #7 tablet 11/26/16 [Rx] Bimatoprost [Lumigan] 1 drop OP HS 03/23/17 [History] Loperamide HCl [Anti-Diarrheal] 2 mg PO QID PRN 03/23/17 [History] Doxycycline Hyclate [Morgidox] 50 mg PO DAILY 04/12/17 [History] Omeprazole [PriLOSEC] 40 mg PO DAILY 04/12/17 [History] amLODIPine [Norvasc] 5 mg PO DAILY 04/23/17 [History] Isosorbide MONOnitrate (24 HR) [Imdur] 30 mg PO DAILY #30 tab 04/25/17 [Rx] hydrOXYzine pamoate [HydrOXYzine Pamoate] 25 mg PO DAILY PRN #5 capsule [Rx] Lisinopril [Zestril] 20 mg PO DAILY #30 tablet 04/27/17 [Rx] Allergies/Adverse Reactions: 3 Allergy/AdvReac Type Severity Reaction Status Date / Time clonidine Allergy Swelling Verified 04/26/17 11:54 of Lip/Tongue/Throat citalopram [From Celexa] AdvReac Hypertensio Verified 04/26/17 11:54 n Date of admission: 04/26/17 15:09 Primary care physician: Ward Davis MD Consults: 04/26/17 21:23 Consult to Physical Therapy [CONS] Routine Comment: Evaluate, develop and implement POC Reason for Consult: Patient is experiencing pre-syncopal episodes and dizziness. Assess for stability/ambulation and strengthening needs for safety post-discharge. 04/26/17 21:24 Consult to Occupational Therapy [CONS] Routine Comment: Evaluate, develop and implement POC Reason for Consult: Patient is experiencing pre-syncopal episodes and dizziness. Assess for stability/ambulation and strengthening needs for safety post-discharge. 04/26/17 22:03 Consult to Nutrition [CONS] Routine Comment: Consulting Provider: NUTRITION Reason for Dietary Consult: PO Supplementation Discharging clinician: Christina South Anticipated date of discharge: 04/27/17 (no needs per OT/PT) - Patient Status Disposition: Home, Self-Care Condition: Fair Functional capacity at discharge: independent ambulation Overall status at discharge: patient is back to baseline - Discharge Instructions Follow Up With: Ward Davis MD [Primary Care Provider] - 05/05/17 2:00 pm Additional Instructions: Follow-up with primary care provider as scheduled - Diet and Activity Activity: increase activity as tolerated Diet: diabetic diet Hospital course: Ms. Lopez is a 76 year old female with past medical history of [place] cardiomyopathy now resolved, CAD, DVT on Xarelto, diabetes, hyperlipidemia, hypertension, RA, anxiety. Patient presented to the emergency department chief complaint of near syncopal episode while at home. Patient stating she was just discharged from the hospital this week and had felt dizzy for the past 24 hours prior to presentation. She denied illness, nausea or vomiting or fever. She denied bleeding, chest pain, cough or syncope. She does report mild lower abdominal pain in the suprapubic area as well as dizziness. During her last admission, patient reports that she was found to be sleepwalking. She has had a recent cardiac workup with an echocardiogram and nuclear stress test revealing ejection fraction of 65% and unremarkable. Patient also had an EGD on 04/07/17 that was unremarkable. Workup in the emergency department unremarkable other than initial hypotension. Patient was admitted to the hospitalist service for further evaluation and management. Blood pressure trended up while admitted and her regular home medications were resumed with a slightly decreased dose of lisinopril, otherwise her medications were continued as they are at home. Patient was seen and evaluated by occupational and physical therapy both of whom surmised she had no needs. Patient denied dizziness or lightheadedness or pain on day of discharge. Of note, I had a lengthy discussion with the patient as this is her fifth EMS visit to this hospital in the last 3 weeks. After a very long conversation, patient stated that her son and her grandson have been living with her for approximately 10 years. She states over the last several months, that her son had stepped on a nail but did not seek treatment so this became infected with gangrene. As a result, he was admitted to inpatient rehabilitation and had home care nursing. She states because of this, she has had a lot of increased stress at home. She also states that he was unable to go upstairs to his bedroom because he was nonweightbearing since she states the extra clutter in the living room created a lot of concern and stress for her. She states that he is now ambulatory and states that she has spoken to him and he states that he will start to help her out more around the house given that he is on SSI disability. Patient readily admits to not eating very often which was likely a contributing factor to her initial hypotension upon arrival. During this admission, she remained hemodynamically stable and her Hemoccult was negative. Regarding her anxiety, she is on BuSpar, clonazepam, hydroxyzine, and Zoloft. Patient was able to tolerate a regular diet prior to discharge. Recommend continued counseling and follow-up outpatient with possible referral to psychiatry for her uncontrolled anxiety. In the week prior to presentation, she had seen both her primary care provider as well as her inspector publications. During her visit with her inspector publications, she was noted to have mild hypotension at times and the recommendation for that was to continued watching it and to hold her HCTZ if her systolic blood pressure is below 110. During this visit, her lisinopril dosage was increased, her medications were otherwise on altered. She was discharged home in stable condition with close outpatient follow-up recommended. - Time Spent with Patient Total time spent providing and/or coordinating discharge services: - Constitutional Vitals: Temp Pulse Resp BP Pulse Ox 98.2 F 78 16 170/81 99 04/27/17 07:16 04/27/17 07:16 04/27/17 07:16 04/27/17 07:16 04/27/17 07:16 General appearance: Present: cooperative, A&O X 3, pleasant, no acute distress, underweight, answers questions appropriately - Head Head exam: Present: atraumatic, normocephalic - Eye Eye exam: Present: PERRL, conjuntiva pink, sclera anicteric Pupils: Present: PERRL - Neck Neck exam general surgery: Present: supple, trachea midline. Absent: lymphadenopathy - Respiratory Respiratory exam: Present: CTAB. Absent: accessory muscle use, rales, respiratory distress, rhonchi, wheezes - Cardiovascular Cardiovascular exam: Present: RRR, +S1, +S2. Absent: diastolic murmur, gallop, rubs, systolic murmur - GI/Abdominal GI/Abdominal exam: Present: normal bowel sounds, soft, no peritoneal signs. Absent: distended, tenderness - Extremities Exam Extremities exam: Present: warm, radial pulses palpable and symmetrical. Absent : calf tenderness, cyanotic, pedal edema - Neurological Exam Neurological exam: Present: alert, CN II-XII intact, normal gait, oriented X3, no focal deficits, strengths equal and symetr throughout. Absent: pronater drift, facial droop, speech deficit - Psychiatric Psychiatric exam: Present: anxious. Absent: homicidal ideation, suicidal ideation - Expanded Psychiatric Exam Focused psych exam: Present: restlessness - Skin Skin exam: Present: dry, intact, pallor, warm
[2017-04-27 10:15] VITALS: BP 145/75
[2017-04-27] MEDS ORDERED: Latanoprost 2.5 ML BOTTLE BOTH EYES SCH (21:00)
--- NOTE | 2017-04-28 14:26 | Electrocardiograph Report ---
[place] [id number] Test Date: 2017-04-26 Pat Name: Graciela Lopez Department: 102 Room: 3B12 Gender: F Paper Deliverer: : 1940 Requested By: Maco Aguilar Order Number: [id number] Reading MD: Sandra Vick Measurements Intervals [place] Rate: 64 P: 58 DC: 186 QRS: 19 QRSD: 85 T: 58 QT: 423 QTc: 432 Interpretive Statements SINUS RHYTHM Electronically Signed On 04-28-2017 14:24:19 EDT by Sandra Vick
--- NOTE | 2017-04-28 14:50 | Electrocardiograph Report ---
[place] [id number] Test Date: 2017-04-27 Pat Name: Graciela Lopez Department: 113 Room: 3B12 Gender: F Shellfish Sorter: : 1940 Requested By: Christina South Order Number: [id number] Reading MD: Sandra Vick Measurements Intervals [place] Rate: 63 P: 24 OK: 205 QRS: 5 QRSD: 90 T: 24 QT: 396 QTc: 404 Interpretive Statements SINUS RHYTHM Electronically Signed On 04-28-2017 14:48:35 EDT by Sandra Vick
== END 2017-04-27 12:13 | disposition home or self-care (01) ==
LOC: 2ANU 11:52 → EMEROO 11:52 → SUATTDRO 15:09 → 3BNU 15:10
PROVIDERS: ADMIT Internal Medicine; ATTEND Nurse Practitioner Family

== ENCOUNTER 2017-04-30 21:54 | Observation (INO) ==
[2017-04-30] MEDS ORDERED: *HR* Morphine 2 MG/ML SYRINGE IVP ONE (22:51)
[2017-04-30] MEDS ORDERED: Ondansetron 4 MG/2 ML VIAL IVP ONE (22:51)
[2017-04-30] MEDS ORDERED: 0.9 % Sodium Chloride 500 ML IVC ONE (22:53)
--- NOTE | 2017-04-30 22:56 | Emergency Department Note ---
Disposition Clinical Impression: Elevated blood pressure reading Headache Qualifiers: Headache type: unspecified Headache chronicity pattern: unspecified pattern Intractability: not intractable Qualified Code(s): R51 - Headache Anemia Qualifiers: Anemia type: unspecified type Qualified Code(s): D64.9 - Anemia, unspecified Disposition: Admitted As Inpatient Condition: Good Instructions: Acute Headache (ED) Referrals: [facility] [Outside] Forms: ED Satisfaction Letter Time of Disposition: 00:40 Headache HPI - General Chief Complaint: ED Headache Stated Complaint: "Headache all Day/OTC Meds Not Working" Time Seen by Provider: 04/30/17 22:10 Source: patient, family Mode of arrival: ambulatory Limitations: no limitations Nursing Notes Reviewed: Yes Vital Signs Reviewed: Yes - History of Present Illness HPI Narrative: 76-year-old female with a history of hypertension, CAD, diabetes on anticoagulation for DVT presents for evaluation of headache. Patient states she has had a gradual onset headache that progressed throughout the day. He was to occur approximately 5 hours prior to arrival. States it is a pain in the back of her head as well as on the top of her head and bilateral temporal pain. Patient states he took Tylenol without relief. Patient denies any nausea or vomiting. Denies any blurry vision or change in vision. Denies any aggravating or alleviating symptoms. States she does have a history of headaches with similar pain presentation. Was recently headache was several months ago. Patient does admit to a recent fall with positive loss of consciousness in the past 2 weeks. Patient was evaluated at that time. Patient denies any recent trauma. Patient also notes some chest discomfort without nausea vomiting. No abdominal pain. No fevers. Patient does live at home with family. Family states that there is no home health or nursing staff that visits the home. Pain Scale: 8 - Related Data Home Medications Medication Instructions Recorded Confirmed Atorvastatin [Lipitor] 20 mg PO HS 04/10/15 04/26/17 Buspirone [Buspar] 15 mg PO TID 04/17/15 04/26/17 Cyclosporine [Restasis] 1 drop OP BID 11/19/15 04/26/17 Sertraline [Zoloft] 100 mg PO DAILY 11/19/15 04/26/17 Fish Oil/Dha/Epa [Fish Oil 1,200 1,200 mg PO DAILY 03/29/16 04/26/17 mg Fish Oil] Fluticasone Propionate Nasal 1 spray NS DAILY 03/29/16 04/26/17 [Flonase] Polyvinyl Alcohol/Povidone/Pf 1 drop OP QID 03/29/16 04/26/17 [Refresh Classic Eye Drops] metFORMIN [Glucophage] 1,000 mg PO BIDWM 04/08/16 04/26/17 clonazePAM [Klonopin] 0.5 mg PO TID 06/04/16 04/26/17 hydroCHLOROthiazide 25 mg PO DAILY 08/29/16 04/26/17 [Hydrochlorothiazide] Bimatoprost [Lumigan] 1 drop OP HS 03/23/17 04/26/17 Loperamide HCl [Anti-Diarrheal] 2 mg PO QID PRN 03/23/17 04/26/17 Doxycycline Hyclate [Morgidox] 50 mg PO DAILY 04/12/17 04/26/17 Omeprazole [PriLOSEC] 40 mg PO DAILY 04/12/17 04/26/17 amLODIPine [Norvasc] 5 mg PO DAILY 04/23/17 04/26/17 Previous Rx's Medication Instructions Recorded Carvedilol [Coreg] 6.25 mg PO BIDWM #60 tablet 04/01/16 Nitroglycerin 0.4 mg SL Q5MIN PRN #30 tab.subl 04/01/16 MDD 3 dose Rivaroxaban [Xarelto] 20 mg PO DAILY #7 tablet 11/26/16 Isosorbide MONOnitrate (24 HR) 30 mg PO DAILY #30 tab 04/25/17 [Imdur] hydrOXYzine pamoate [HydrOXYzine 25 mg PO DAILY PRN #5 capsule 04/25/17 Pamoate] Lisinopril [Zestril] 20 mg PO DAILY #30 tablet 04/27/17 Allergies Allergy/AdvReac Type Severity Reaction Status Date / Time clonidine Allergy Swelling Verified 04/26/17 11:54 of Lip/Tongue/Throat citalopram [From Celexa] AdvReac Hypertensio Verified 04/26/17 11:54 n All systems ED: reviewed and negative except as stated. Constitutional: Reports: as per HPI. Denies: fever Eyes: Reports: as per HPI. Denies: eye pain ENT ED: Reports: as per HPI Cardiovascular: Reports: as per HPI, chest pain Respiratory: Reports: as per HPI, dyspnea Gastrointestinal: Reports: as per HPI. Denies: abdominal pain, nausea, vomiting , diarrhea, constipation Genitourinary: Reports: as per HPI Musculoskeletal: Reports: as per HPI Integumentary: Reports: as per HPI Neurological: Reports: as per HPI Psychiatric: Reports: as per HPI Endocrine: Reports: as per HPI Hematological/Lymphatic: Reports: as per HPI Headache PMH - Past Medical History Medical history: Reports: arthritis, cardiomyopathy, coronary artery disease, DVT, diabetes, hyperlipidemia, hypertension, osteoporosis, RA, other Reports: Concussion (from recent head injury) Female Surgical History: Reports: carotid endarterectomy, cataract, hysterectomy , splenectomy, other Psychiatric history: Reports: anxiety, depression CROP QUANTITATIVE GENETICIST history: Reports: no CROP QUANTITATIVE GENETICIST history - Social History Smoking Status: Former smoker Alcohol use: Reports: none Drug use: Reports: none Physical Exam - General Limitations: no limitations General appearance: alert, in no apparent distress - Head Head exam: atraumatic, normocephalic, normal inspection - Eye Eye exam: Present: normal appearance, PERRL, EOMI. Absent: scleral icterus - ENT ENT exam: normal exam, mucous membranes moist - Neck Neck exam: Present: normal inspection - Chest Chest inspection: Present: normal inspection, symmetric chest wall rise - Respiratory Respiratory exam: Present: normal lung sounds bilaterally. Absent: respiratory distress - Cardiovascular Cardiovascular exam: Present: regular rate, normal rhythm. Absent: systolic murmur - Abdominal Exam Abdominal exam: Present: soft, Non-Tender - Extremities Exam Extremities exam: Present: normal inspection. Absent: pedal edema - Back Exam Back exam: Present: normal inspection - Neurological Exam Neurological exam: Present: alert, oriented X3, CN II-XII intact - Expanded Neurological Exam Patient oriented to: Present: person, place, time Speech: Present: fluid speech Cranial nerves: EOM function (II, III, IV, ): Normal, facial sensation (V): Normal, facial palsy (VII): Normal, spinal accessory function (XI): Normal, tongue deviation (XII): Normal Cerebellar function: finger to nose: Normal Motor strength - LUE: 5/5 Motor strength - RUE: 5/5 Motor strength - LLE: 5/5 Motor strength - RLE: 5/5 Coma Scale Eye Opening: Spontaneous Coma Scale Motor Response: Obeys Commands Coma Scale Verbal Response: Oriented Coma Scale Total: 15 - Skin Skin exam: Present: warm, dry, intact, normal color Course Course Narrative: Patient seen and examined. Patient is in no acute distress. Patient had multiple admissions within the past couple months for various complaints. Concerned that the patient does not have sufficient resources at home. This information was discussed with the family as well as the patient at bedside. Patient's family is was patient state that they feel that they would like assistance at home. Patient does not exhibit any focal neurologic deficits. Patient will receive a head CT as well as cardiopulmonary screening evaluation. A control with antiemetics IV fluids and morphine. Disposition pending. - Reevaluation(s) Reevaluation #1: Patient seen and examined. Patient states that her pain has resolved. Resting E. Exam is unchanged. Patient's records reviewed showed that she did have a recent stress test which was unremarkable within the past month. Time: 00:07 Reevaluation #2: She is resting comfortably. No acute distress. Patient feels comfortable to go home. Family bedside agree. Time: 00:26 Reevaluation #3: While waiting to go home and the patient states that she does not feel well. Patient states that her headache is starting to return. Patient will be admitted for elevated blood pressure as well as headache and not feeling well. Concerned that the patient cannot take care of herself at home. Patient would like any discharge planning with consideration for placement. Time: 01:23 Vital Signs Temperature 97.6 F 04/30/17 22:05 Pulse Rate 69 04/30/17 22:05 Respiratory Rate 16 04/30/17 22:05 Blood Pressure 134/73 04/30/17 22:05 O2 Sat by Pulse Oximetry 99 04/30/17 22:05 Temperature 97.6 F 04/30/17 22:05 Pulse Rate 64 05/01/17 01:00 Respiratory Rate 18 05/01/17 01:00 Blood Pressure 189/84 05/01/17 01:00 O2 Sat by Pulse Oximetry 99 05/01/17 01:00 Oxygen Delivery Oxygen Delivery Room Air Headache - MDM Narrative Medical decision making narrative: 76-year-old female transfer evaluation of a headache. Patient's been resting comfortably. Denies any trauma. Patient had nonfocal neurologic exam. Patient neuro imaging which showed no acute intracranial pathology. Patient had basic screening cardiopulmonary evaluation. Patient also had a recent hospitalization with a stress test within the past month which was no ischemic changes. Patient family is at bedside. Discussed with assistance at home and social work involvement. Instructed them to talk with their primary care physician to help arrange this. Patient does live with family but family states that they would like some assistance. Looking at the patient's ER visit history the patient has had multiple visits within the past month. Patient does not meet any criteria at this time for any other evaluation. [place] comfortable going home and following up on Wednesday with her primary care physician. Patient's headache was not thunderclap in onset. Patient has no focal neurologic deficits. Not believe this is a subarachnoid hemorrhage. Prior to discharge the patient states her headache started coming back. Patient states she is not feel well. Bleeding of the patient's ER visit history she has had multiple admissions. Patient needs to be considered for placement or assistance at home. Concern that the patient cannot take care of herself at home. - Lab Data Lab results reviewed: Yes I reviewed the patient's lab results. Result diagrams: 04/30/17 22:53 04/30/17 22:53 Lab Results 04/30/17 04/30/17 04/30/17 Range/Units 22:53 22:53 22:53 WBC 4.9 (4.3-11.1) K/mcL RBC 2.94 L (3.82-4.97) M/mcL Hgb 9.0 L (11.5-15.4) g/dL Hct 27.9 L (35.3-44.9) % MCV 94.9 (83.0-100.0) fL MCH 30.6 (28.0-33.3) pg MCHC 32.3 (31.6-35.5) g/dL RDW 13.3 (11.5-14.5) % Plt Count 310 (140-400) K/mcL MPV 9.3 L (9.4-12.4) fL Immature Gran % 0.2 (0-4) % Seg Neutrophils % 51.8 % Lymphocytes % 30.0 % Monocytes % 9.2 % Eosinophils % 8.4 % Basophils % 0.4 % Neutrophils # 2.5 (1.6-8.9) K/mcL Lymphocytes # 1.5 (0.6-4.6) K/mcL Monocytes # 0.5 (0.0-1.3) K/mcL Eosinophils # 0.4 (0.0-0.6) K/mcL Basophils # 0.0 (0.0-0.2) K/mcL Sodium 141 (136-145) mEq/L Potassium 3.6 (3.5-4.5) mEq/L Chloride 104 (98-109) mEq/L Carbon Dioxide 26 (19-29) mEq/L BUN 10 (7-20) mg/dL Creatinine 0.63 (0.57-1.11) mg/dL Est GFR ( Amer) > 60 (> 60) Est GFR (Non-Af Amer) > 60 (> 60) BUN/Creatinine Ratio 16 (6-26) Glucose 96 (70-99) mg/dL Calculated Osmolality 291 (280-300) Calcium 8.6 (8.6-10.8) mg/dL Total Bilirubin < 0.2 L (0.2-1.2) mg/dL AST 13 (5-34) Units/L ALT 14 (0-55) Units/L Alkaline Phosphatase 46 (38-126) Units/L Troponin I 0.00 (0-0.03) ng/mL Serum Total Protein 5.7 L (6.0-8.3) g/dL Albumin 3.0 L (3.5-5.0) g/dL Globulin 2.7 (2.4-3.5) g/dL Albumin/Globulin Ratio 1.1 (1.1-2.2) - Radiology Data Radiology results reviewed: Yes I reviewed the patient's radiology results. Head CT 04/30/17 22:42 IMPRESSION: No acute intracranial abnormality. D/ / Vincent Hernandez MD / Vincent Hernandez MD Interpreting Provider: Vincent Hernandez MD Chest X-Ray 04/30/17 22:52 IMPRESSION: Clear lungs. D/ / Vincent Hernandez MD / Vincent Hernandez MD Interpreting Provider: Vincent Hernandez MD - EKG Data EKG attestation: Yes I reviewed and interpreted this EKG. EKG shows normal: sinus rhythm Rate: normal Rhythm: NSR [place]/QRS: normal Q waves: aVR, v1 T wave inversions noted in: aVR, v1 Interpretation: no acute changes, unchanged when compared to prior tracing (date ) James - James Situation: Demographics Background: Presenting Complaint Assessment: Vital Signs, Patient/Family Expectation Recommendation: Barrier(s) to disposition, Recommendation based on pending studies, treatments, or consults James Report Given to: Dr. John Ramirez Repor Time: 01:28 Attestation Statement - Attestation Attestation: I examined this patient and my medical decision-making was reviewed with the Resident Physician. I agree with the documented findings, disposition and treatment plan as described except to the extent set forth below. Patient to the ED presents with chief complaint headache. Patient states she is having the back of her head all day. She took acetaminophen with no relief. She states she is here because she is concerned she might have a stroke. Denies any numbness to groin. No chest pain trouble breathing. She has had frequent ED visits because are not able to control her blood pressure. She is accompanied by her daughter. Patient awake and alert and neurologically intact on my evaluation. Pleasant and conversant. Clear. Lungs clear. Abdomen soft. Plan. Patient is neurologically intact. We will check a head CT. She voices no other complaints as well. Frequent ED visits. Patient voices no social concerns. Likely discharge. Patient still reporting that she does not feel well. She is admitted to medicine.
[2017-04-30 22:59] LABS: Basophils % 0.4 %; Eosinophils # 0.4 K/mcL (0.0-0.6); Eosinophils % 8.4 %; Hematocrit 27.9 % (35.3-44.9); Immature Granulocytes % 0.2 % (0-4); Lymphocytes # 1.5 K/mcL (0.6-4.6); Mean Corpuscular HGB Conc 32.3 g/dL (31.6-35.5); Mean Corpuscular Hemoglobin 30.6 pg (28.0-33.3); Mean Corpuscular Volume 94.9 fL (83.0-100.0); Mean Platelet Volume 9.3 fL (9.4-12.4); Monocytes # 0.5 K/mcL (0.0-1.3); Monocytes % 9.2 %; Neutrophils # 2.5 K/mcL (1.6-8.9); Platelet Count 310 K/mcL (140-400); Red Blood Count 2.94 M/mcL (3.82-4.97); Red Cell Distribution Width 13.3 % (11.5-14.5); Segmented Neutrophils % 51.8 %
[2017-04-30 23:13] LABS: Alanine Aminotransferase 14 Units/L (0-55); Albumin/Globulin Ratio 1.1 (1.1-2.2); Alkaline Phosphatase 46 Units/L (38-126); Aspartate Amino Transferase 13 Units/L (5-34); BUN/Creatinine Ratio 16 (6-26); Blood Urea Nitrogen 10 mg/dL (7-20); Calcium 8.6 mg/dL (8.6-10.8); Carbon Dioxide 26 mEq/L (19-29); Chloride 104 mEq/L (98-109); Globulin 2.7 g/dL (2.4-3.5); Glucose 96 mg/dL (70-99); Osmolality,Calculated 291 (280-300); Potassium 3.6 mEq/L (3.5-4.5); Sodium 141 mEq/L (136-145); Total Protein 5.7 g/dL (6.0-8.3); eGFR For African Americans > 60 (> 60); eGFR For Non-African Americans > 60 (> 60)
[2017-04-30 23:14] LABS: Bilirubin,Total < 0.2 mg/dL (0.2-1.2)
[2017-05-01] MEDS ORDERED: *HR* Morphine 2 MG/ML SYRINGE IVP ONE (01:20)
[2017-05-01] MEDS ORDERED: CloNIDine Patch 0.1 MG PATCH (WEEKLY) TD ONE (01:22)
[2017-05-01] MEDS ORDERED: Naloxone 0.4 MG/ML INJ IVP PRN (02:38)
[2017-05-01] MEDS ORDERED: Ondansetron 4 MG/2 ML VIAL IVP PRN (02:38)
--- NOTE | 2017-05-01 02:38 | Internal Med History&Physical ---
Date of Encounter: 05/01/17 Time of Encounter: 02:00 Assessment and Plan (1) Hypertensive urgency Current visit: No Status: Acute Patient has been having labile blood pressures in the past several weeks prompting several hospital visits. Her last hospital visit she had hypertension and at that time pressure medication was reduced, later that week additional blood pressure medication was reduced. Patient current hypertension could possibly be due to rebound from decreased blood pressure medications, though currently unclear. Neurological exam nonfocal without signs of CVA or SAH. We will return patient to previous dosage of home antihypertensive medications IV hydralazine when necessary for elevated blood pressures We will continue to monitor with regular vital checks to see weathers but improvement patient blood pressure (2) Headache Current visit: Yes Status: Acute Patient reports severe headache at presentation. We considered the possibility of a SAH, but initial CT exam was normal, patient reports that this headache is similar to her previous headaches, her neck is subtle, and she had a non-focal exam so we are not pursuing this further at this moment. We will give Fioricet Headache will likely improve with improving blood pressure Continue to monitor both finals and headache Qualifiers: Headache type: unspecified Headache chronicity pattern: unspecified pattern Intractability: not intractable Qualified Code(s): R51 - Headache (3) Anemia Current visit: No Status: Chronic Patient hemoglobin at 9.0. When looking at patient's trend of hemoglobin over the past couple months this is roughly unchanged. Patient did have EGD and colonoscopy on 04/07/17 that showed only gastritis. Patient anemia likely represents decreased by mouth and potentially iron deficiency as there is no outward sign of bleeding. Will obtain iron studies Continue to monitor via morning CBC Qualifiers: Anemia type: unspecified type Qualified Code(s): D64.9 - Anemia, unspecified (4) Diabetes mellitus Current visit: No Status: Chronic Patient on metformin at home. 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 No concerning EKG findings, initial troponin negative Sublingual nitroglycerin for continued chest pain Continue home medications Continue telemetry (6) Tak[place]o cardiomyopathy Current visit: No Status: Suspected Stable at this time. We will continue home medications (7) CAD (coronary artery disease) Current visit: No Status: Chronic Stable. Will continue home medications Qualifiers: Coronary Disease-Associated Artery/Lesion type: unspecified vessel or lesion type [place] vs. transplanted heart: [place] heart Associated angina: with stable angina Qualified Code(s): I25.118 - Atherosclerotic heart disease of [place] coronary artery with other forms of angina pectoris (8) DVT (deep venous thrombosis) Current visit: No Status: Chronic Patient on Xarelto due to prior DVT. 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 There is evidence patient has been unable to fully care for some properly she has been taking care of her grandson. Both the patient and her daughter are interested in what options there are for assistance of her and for her own health. We will consult social work therapist Internal Medicine - H&P: HPI Chief complaint: Headache and hypertension Admitted From: Home Plans for Post Hospital Care: Home History of present illness: Ms. Loepz is a 76 year old female with prior medical history of cerebral cardiomyopathy, coronary artery disease, prior DVT, diabetes, and hypertension who presents to [facility] ER because of a severe headache that started early that afternoon. She states the headache started earlier in the afternoon and was described as beginning in the back of her head temples and frontal areas of her head and was 89/10 in severity. She states she tried Tylenol but that was not very effective, but she states nothing made it worse including sound, light, movement, palpation. She does states she has had chills for most the day reports some weakness and fatigue. She also reports having some lightheadedness when she gets up and blurry vision, but that this is chronic for her. She states she has been in and out of the hospital several times in the past couple months he has been having issues with labile blood pressure. She was last in the hospital about a week ago in which she had hypotension. One of her blood pressure medications was reduced at this time and she states an additional medication was reduced at her PCPs office a couple days ago. She states her amlodipine and lisinopril with a 2 that were reduced. She also reports having significant amount of anxiety related to stressors in her life. She states that she is basically been left in charge of taking care of her grandson, though her son (who is still present) is still living with her. She states that due to some of his concerns and behaviors that she has been left in care of his son, because of this she has not had adequate care for herself. She reports that she has had a 30 pound weight loss in the past 8 months and although this is unintentional, she believes is mainly due to decreased appetite and food ingestion and that time. Both her and her daughter were asking about potential home health to assist with some of her needs. Past Med Surg Social Fam HX - Past Medical History Medical history: arthritis, cardiomyopathy, coronary artery disease, DVT, diabetes, hyperlipidemia, hypertension, osteoporosis, RA, other Psychiatric history: anxiety, depression - Past Surgical History Surgical History: carotid endarterectomy, cataract, hysterectomy, splenectomy, other - Social History Smoking Status: Former smoker Smokeless Tobacco Status: No Alcohol use: none Drug use: none - Family History Mother Family Member Ethnicity: Non- Living Status: Hx Family Cardiac Disorders: Yes (HTN) Hx Family Neurologic Disorders: Yes (Stroke) Father Family Member Ethnicity: Non- Living Status: Hx Family Cardiac Disorders: Yes (MD) Maternal Adopted: No Family Member Ethnicity: Non- Living Status: Hx Family Cardiac Disorders: Yes (HTN) Hx Family Respiratory Disorders: No Hx Family Cancer: No Hx Family GI Disorders: No Hx Family Endocrine Disorder: No Hx Family Neuromuscular Disorders: No Hx Family Neurologic Disorders: Yes (CVA) Hx Family HEENT Disorders: No Hx Family Autoimmune Disorders: No Internal Medicine - H&P: Meds Atorvastatin [Lipitor] 20 mg PO HS 04/10/15 [History] Buspirone [Buspar] 15 mg PO TID 04/17/15 [History] Cyclosporine [Restasis] 1 drop OP BID 11/19/15 [History] Sertraline [Zoloft] 100 mg PO DAILY 11/19/15 [History] Fish Oil/Dha/Epa [Fish Oil 1,200 mg Fish Oil] 1,200 mg PO DAILY 03/29/16 [ History] Fluticasone Propionate Nasal [Flonase] 1 spray NS DAILY 03/29/16 [History] Polyvinyl Alcohol/Povidone/Pf [Refresh Classic Eye Drops] 1 drop OP QID [History] Carvedilol [Coreg] 6.25 mg PO BIDWM #60 tablet 04/01/16 [Rx] Nitroglycerin 0.4 mg SL Q5MIN PRN #30 tab.subl MDD 3 dose 04/01/16 [Rx] metFORMIN [Glucophage] 1,000 mg PO BIDWM 04/08/16 [History] clonazePAM [Klonopin] 0.5 mg PO TID 06/04/16 [History] hydroCHLOROthiazide [Hydrochlorothiazide] 25 mg PO DAILY 08/29/16 [History] Rivaroxaban [Xarelto] 20 mg PO DAILY #7 tablet 11/26/16 [Rx] Bimatoprost [Lumigan] 1 drop OP HS 03/23/17 [History] Loperamide HCl [Anti-Diarrheal] 2 mg PO QID PRN 03/23/17 [History] Doxycycline Hyclate [Morgidox] 50 mg PO DAILY 04/12/17 [History] Omeprazole [PriLOSEC] 40 mg PO DAILY 04/12/17 [History] amLODIPine [Norvasc] 5 mg PO DAILY 04/23/17 [History] Isosorbide MONOnitrate (24 HR) [Imdur] 30 mg PO DAILY #30 tab 04/25/17 [Rx] Lisinopril [Zestril] 20 mg PO DAILY #30 tablet 04/27/17 [Rx] 3 Allergy/AdvReac Type Severity Reaction Status Date / Time clonidine Allergy Swelling Verified 04/26/17 11:54 of Lip/Tongue/Throat citalopram [From Celexa] AdvReac Hypertensio Verified 04/26/17 11:54 n Review of systems: Gen: Denies fever, reports chills, reports weightloss, reports weakness, reports fatigue CV: Denies chest pain, denies exertional chest pain or dyspnea, denies palpitations Resp: Denies shortness of breath, denies dyspnea, denies pleuritic pain, denies coughing, denies changes in phlegm production, denies wheeze GI: Denies nausea, denies vomiting, denies abdominal pain, denies constipation, reports diarrhea, denies hematochezia, denies melena MSK: denies arthralgia, denies muscle weakness Neuro: reports headache, denies confusion, denies focal weakness, denies numbness, denies tingling, reports vision changes, reports lightheadedness when standing Skin: Denies bruising, denies rash : Denies flank pain, denies dysuria, denies hematuria - Constitutional Vitals: Temp Pulse Resp BP Pulse Ox 97.6 F 64 18 189/84 99 04/30/17 22:05 05/01/17 01:00 05/01/17 01:00 05/01/17 01:00 05/01/17 01:00 Exam: General: Cooperative, pleasant, no acute distress, alert and oriented 3, answers questions appropriately, thin HEENT: Normocephalic, atraumatic, neck supple, trachea midline, Conjunctiva pink , sclera anicteric, PERRL, oral mucosa moist, no orophargeal erythema or exudates Respiratory: No accessory muscle usage, clear to auscultation bilaterally, no wheezes/rhonchi/rales appreciated Cardiovascular: Regular rate and rhythm, S1 and S2 present, no murmurs/rubs/ gallops/clicks appreciated GI/abdominal: Nondistended, nontender, soft, normal bowel sounds, no peritoneal signs Extremities: No calf tenderness, noncyanotic, no pedal edema appreciated, warm, lower extremity pulses palpable and symmetrical Neurological: Alert and oriented 3, no facial droop, no focal deficits, EOMI, sensation and strength grossly intact Skin: Dry, intact, normal color Internal Med - H&P Results - Labs CBC & Chem 7: 04/30/17 22:53 04/30/17 22:53
[2017-05-01] MEDS ORDERED: D5% in Water 1,000 ML IVC PRN (02:43)
[2017-05-01] MEDS ORDERED: Dextrose Gel 15 GM PO PRN ×2 (02:43)
[2017-05-01] MEDS ORDERED: *HR* Dextrose 50 % in Water (Syg) 50 ML SYRINGE IVP PRN (02:43)
[2017-05-01] MEDS ORDERED: Nitroglycerin 0.4 MG TAB.SUBL SL PRN (02:55)
[2017-05-01] MEDS: amLODIPine 5 MG TABLET PO SCH (03:24)
--- NOTE | 2017-05-01 04:46 | Event Note ---
Date of Encounter: 05/01/17 Time of Encounter: 04:46 patient seen and examined with medical anthropology director. Agree with assessment and plan
[2017-05-01 08:13] LABS: Basophils % 0.7 %; Eosinophils # 0.5 K/mcL (0.0-0.6); Eosinophils % 10.4 %; Hematocrit 30.4 % (35.3-44.9); Hemoglobin 9.8 g/dL (11.5-15.4); Immature Granulocytes % 0.2 % (0-4); Lymphocytes # 1.4 K/mcL (0.6-4.6); Lymphocytes % 30.1 %; Mean Corpuscular HGB Conc 32.2 g/dL (31.6-35.5); Mean Corpuscular Hemoglobin 31.1 pg (28.0-33.3); Mean Corpuscular Volume 96.5 fL (83.0-100.0); Mean Platelet Volume 10.4 fL (9.4-12.4); Monocytes # 0.4 K/mcL (0.0-1.3); Monocytes % 8.4 %; Neutrophils # 2.3 K/mcL (1.6-8.9); Platelet Count 329 K/mcL (140-400); Red Blood Count 3.15 M/mcL (3.82-4.97); Red Cell Distribution Width 13.4 % (11.5-14.5); Segmented Neutrophils % 50.2 %
[2017-05-01 08:45] LABS: BUN/Creatinine Ratio 13 (6-26); Blood Urea Nitrogen 8 mg/dL (7-20); Calcium 8.6 mg/dL (8.6-10.8); Carbon Dioxide 32 mEq/L (19-29); Chloride 102 mEq/L (98-109); Glucose 115 mg/dL (70-99); Magnesium 1.1 mg/dL (1.6-2.6); Osmolality,Calculated 291 (280-300); Phosphorous 3.5 mg/dL (2.3-4.7); Potassium 3.7 mEq/L (3.5-4.5); Sodium 141 mEq/L (136-145); eGFR For African Americans > 60 (> 60); eGFR For Non-African Americans > 60 (> 60)
[2017-05-01] MEDS: Lisinopril 20 MG TABLET PO SCH (09:13)
[2017-05-01] MEDS: Acetaminophen 325 MG TABLET PO PRN ×2 (09:13→19:16)
[2017-05-01] MEDS: *HR* Rivaroxaban 10 MG TABLET PO SCH (09:14)
[2017-05-01] MEDS: hydroCHLOROthiazide 25 MG TABLET PO SCH (09:15)
[2017-05-01] MEDS: clonazePAM 1 MG TABLET PO SCH ×3 (09:16→21:36)
[2017-05-01] MEDS: Fluticasone Propionate Nasal 50 MCG/SPRAY BOTTLE NS SCH (09:17)
[2017-05-01] MEDS: Artificial Tears SOLN 15 ML BOTTLE OP SCH ×4 (09:17→21:40)
[2017-05-01] MEDS: Insulin LISPRO 300 UNITS/3 ML VIAL SQ SCH ×3 (09:18→17:00)
[2017-05-01] MEDS: RESTASIS OP SCH ×2 (09:19→21:32)
[2017-05-01 09:53] LABS: % Iron Saturation 7 % (15-50); Iron 26 mcg/dL (50-170); Transferrin 280 mg/dL (180-382)
[2017-05-01] MEDS: Acetaminophen/Butalbital/CaffeineTABLET PO PRN ×2 (12:03→15:58)
--- NOTE | 2017-05-01 13:20 | Internal Med Progress Note ---
Date of Encounter: 05/01/17 Time of Encounter: 13:18 - Assessment and plan (1) Headache Current Visit: Yes Status: Acute Assessment and plan: Due to uncontrolled / labile BP Cont close monitoring cont symptomatic and supportive care Noticed she had multiple hospitalization almost every week with similar problems.. Just discharged on 04/27/17.. Seems to be she does have social issues and lot of stress at home.. which might be contributing to her headache exacerbations too will ask SW to evaluate the pt I did talk to pt about home situation..she is living with her son who recently had foot gangrene and severe sepsis was under hospice care, but now he is off the hospice care doing OK.. Qualifiers: Headache type: unspecified Headache chronicity pattern: unspecified pattern Intractability: not intractable Qualified Code(s): R51 - Headache (2) Hypertensive urgency Current Visit: No Status: Acute Assessment and plan: BP still not well controlled Inc Coreg to 12.5, cont Norvasc and Lisinopril If still not well controlled --will add imdur She recently had stress test which was negative for any ischemia (3) Anxiety Current Visit: No Status: Chronic Assessment and plan: cont clonopin (4) Diabetes mellitus Current Visit: No Status: Chronic Assessment and plan: resumed home meds and ISS 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 mellitus complication status: with unspecified complications Diabetes mellitus termination clerk insulin use: unspecified termination clerk insulin use status Qualified Code(s): E11.8 - Type 2 diabetes mellitus with unspecified complications (5) CAD (coronary artery disease) Current Visit: No Status: Chronic Assessment and plan: Resumed home medications Qualifiers: Coronary Disease-Associated Artery/Lesion type: unspecified vessel or lesion type [place] vs. transplanted heart: [place] heart Associated angina: with stable angina Qualified Code(s): I25.118 - Atherosclerotic heart disease of [place] coronary artery with other forms of angina pectoris - Subjective Interval history: Ms. Lopez is a 76 year old female with prior medical history of cerebral cardiomyopathy, coronary artery disease, prior DVT, diabetes, and hypertension who presents to [place] ER because of a severe headache. She did have uncontrolled and labile BP. Currently pt is resting comfortably and having lunch. Denied any CP / SOB. However she did mention about CP y/d when she had headache. she still getting LERNER on and Off today. Denied any SOB / SANCHEZ. - Constitutional Vitals: Temp Pulse Resp BP Pulse Ox 98.1 F 66 12 165/80 98 05/01/17 11:20 05/01/17 11:20 05/01/17 11:20 05/01/17 11:20 05/01/17 11:20 General appearance: Present: A&O X 3, no acute distress, answers questions appropriately - Head Head exam: Present: atraumatic, normal inspection - Respiratory Respiratory exam: Present: decreased breath sounds, wheezes. Absent: rales, respiratory distress, rhonchi - Cardiovascular Cardiovascular exam: Present: RRR, +S1, +S2. Absent: diastolic murmur, gallop, rubs, systolic murmur - GI/Abdominal GI/Abdominal exam: Present: normal bowel sounds, soft, no peritoneal signs. Absent: distended, tenderness - Extremities Exam Extremities exam: Absent: calf tenderness, pedal edema, tenderness - Psychiatric Psychiatric exam: Present: normal affect, normal mood Internal Medicine: Result - Labs CBC & Chem 7: 05/01/17 07:12 05/01/17 07:12 Labs: Short CBC 05/01/17 Range/Units 07:12 WBC 4.5 (4.3-11.1) K/mcL Hgb 9.8 L (11.5-15.4) g/dL Hct 30.4 L (35.3-44.9) % Plt Count 329 (140-400) K/mcL Neutrophils # 2.3 (1.6-8.9) K/mcL BMP 05/01/17 07:12 Sodium 141 Potassium 3.7 Chloride 102 Carbon Dioxide 32 H BUN 8 Creatinine 0.63 Glucose 115 H Calcium 8.6 Consult Discharge Plan - Plan Referrals: Ward Davis MD [Primary Care Provider] -
[2017-05-01] MEDS: Magnesium Sulfate 2 GM in D5% in Water 100 ML IVPB SCH ×2 (14:30→15:59)
[2017-05-01] MEDS ORDERED: Insulin LISPRO 300 UNITS/3 ML VIAL SQ SCH (21:00)
[2017-05-01] MEDS ORDERED: Latanoprost 2.5 ML BOTTLE BOTH EYES SCH (21:00)
[2017-05-02] MEDS: amLODIPine 5 MG TABLET PO SCH (08:00)
[2017-05-02] MEDS: clonazePAM 1 MG TABLET PO SCH (08:00)
[2017-05-02] MEDS: *HR* Rivaroxaban 10 MG TABLET PO SCH (08:01)
[2017-05-02] MEDS: hydroCHLOROthiazide 25 MG TABLET PO SCH (08:02)
[2017-05-02] MEDS: Lisinopril 20 MG TABLET PO SCH (08:02)
[2017-05-02] MEDS: Fluticasone Propionate Nasal 50 MCG/SPRAY BOTTLE NS SCH (08:02)
[2017-05-02] MEDS: RESTASIS OP SCH (08:03)
[2017-05-02] MEDS: Artificial Tears SOLN 15 ML BOTTLE OP SCH (08:03)
[2017-05-02] MEDS: Insulin LISPRO 300 UNITS/3 ML VIAL SQ SCH ×2 (08:05→11:49)
[2017-05-02] MEDS: Acetaminophen 325 MG TABLET PO PRN (09:59)
[2017-05-02 11:03] VITALS: BP 91/53
--- NOTE | 2017-05-02 12:05 | Discharge Summary ---
Date of Encounter: 05/02/17 Time of Encounter: 12:01 - Discharge Diagnosis (1) Hypertensive urgency Priority: Primary Status: Acute (2) Anxiety Priority: Secondary Status: Chronic (3) CAD (coronary artery disease) Priority: Secondary Status: Chronic Qualifiers: Coronary Disease-Associated Artery/Lesion type: unspecified vessel or lesion type [place] vs. transplanted heart: [place] heart Associated angina: with stable angina Qualified Code(s): I25.118 - Atherosclerotic heart disease of [place] coronary artery with other forms of angina pectoris (4) Diabetes mellitus Priority: Secondary Status: Chronic 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 mellitus complication status: with unspecified complications Diabetes mellitus exterminator helper termite insulin use: unspecified assisted insulin use status Qualified Code(s): E11.8 - Type 2 diabetes mellitus with unspecified complications (5) Headache Priority: Secondary Status: Acute Qualifiers: Headache type: tension-type Headache chronicity pattern: acute headache Intractability: not intractable Qualified Code(s): G44.209 - Tension-type headache, unspecified, not intractable - Discharge Medications Prescriptions: Carvedilol 12.5 mg PO BID #60 tab Home Medications: Atorvastatin [Lipitor] 20 mg PO HS 04/10/15 [History] Buspirone [Buspar] 15 mg PO TID 04/17/15 [History] Cyclosporine [Restasis] 1 drop OP BID 11/19/15 [History] Sertraline [Zoloft] 100 mg PO DAILY 11/19/15 [History] Fish Oil/Dha/Epa [Fish Oil 1,200 mg Fish Oil] 1,200 mg PO DAILY 03/29/16 [ History] Fluticasone Propionate Nasal [Flonase] 50 mcg NS DAILY 03/29/16 [History] Polyvinyl Alcohol/Povidone/Pf [Refresh Classic Eye Drops] 1 drop OP QID [History] Nitroglycerin 0.4 mg SL Q5MIN PRN #30 tab.subl MDD 3 dose 04/01/16 [Rx] metFORMIN [Glucophage] 1,000 mg PO BIDWM 04/08/16 [History] clonazePAM [Klonopin] 0.5 mg PO TID 06/04/16 [History] hydroCHLOROthiazide [Hydrochlorothiazide] 25 mg PO DAILY 08/29/16 [History] Rivaroxaban [Xarelto] 20 mg PO DAILY #7 tablet 11/26/16 [Rx] Bimatoprost [Lumigan] 1 drop OP HS 03/23/17 [History] Loperamide HCl [Anti-Diarrheal] 2 mg PO QID PRN 03/23/17 [History] Doxycycline Hyclate [Morgidox] 50 mg PO DAILY 04/12/17 [History] Omeprazole [PriLOSEC] 40 mg PO DAILY 04/12/17 [History] amLODIPine [Norvasc] 5 mg PO DAILY 04/23/17 [History] Isosorbide MONOnitrate (24 HR) [Imdur] 30 mg PO DAILY #30 tab 04/25/17 [Rx] Lisinopril [Zestril] 40 mg PO DAILY 05/01/17 [History] hydrOXYzine pamoate [Hydroxyzine Pamoate] 25 mg PO AD PRN 05/01/17 [History] Carvedilol 12.5 mg PO BID #60 tab 05/02/17 [Rx] Allergies/Adverse Reactions: 3 Allergy/AdvReac Type Severity Reaction Status Date / Time clonidine Allergy Swelling Verified 04/26/17 11:54 of Lip/Tongue/Throat citalopram [From Celexa] AdvReac Hypertensio Verified 04/26/17 11:54 n Date of admission: 05/01/17 01:46 Primary care physician: Ward Davis MD Consults: 05/01/17 02:42 Consult to Brick Machine Operator [CONS] Routine Reason for SW Consult: Concern for HH need and lack of resources at home Discharging clinician: Nancy Villa Anticipated date of discharge: 05/02/17 - Patient Status Disposition: Home, Self-Care Condition: Good Functional capacity at discharge: independent ambulation Overall status at discharge: patient is progressing back to baseline - Discharge Instructions Instructions: Carvedilol (By mouth), Chronic Hypertension (DC), Anemia (GEN) Follow Up With: Ward Davis MD [Primary Care Provider] - (in 1 week Doctor's office will call you with date and time of appointment. ) - Diet and Activity Activity: increase activity as tolerated Diet: low fat, low cholesterol, low salt diet Hospital course: Ms. Lopez is a 76 year old female patient with history of anxiety disorder , Takotsubo cardiomyopathy, coronary artery disease, diabetes mellitus type 2, prior DVT was hospitalized here with hypertensive urgency along with intractable headache. She has had multiple hospitalizations in the recent past with multiple variations of similar presentation related to uncontrolled anxiety disorder. Patient has been having increased stress at home and has been having a lot of difficulty managing this. She does follow up with her primary care provider and his psychiatrist but is not clear if she is compliant with her treatment plan. During this hospitalization, patient was treated for hypertensive urgency with intravenous hydralazine as needed. She was also placed back on her anxiolytic medications with improvement in her symptoms. Since yesterday she has been placed on increased dosage of carvedilol with improvement in her blood pressure. For her intractable headache she received Fioricet with improvement in her symptoms. She is able to participate in her activities of intermittent living and would not be a candidate for home health. The patient talked to her about placement to a fpc for short-term to control her symptoms and blood pressure better and also to provide her with physical therapy but she does not wish to do so. At this time, clinically patient is stable for discharge. She has been advised to follow up closely with her primary care provider and psychiatrist and to stay compliant with her anxiolytic medications to control her anxiety better. She reports that her family situation appears to have stabilized and she should be in much less distress than she was in before. - Time Spent with Patient Total time spent providing and/or coordinating discharge services: Greater than 30 minutes (35 min) - Constitutional Vitals: Temp Pulse Resp BP Pulse Ox 97.9 F 61 15 91/53 98 05/02/17 10:58 05/02/17 10:58 05/02/17 10:58 05/02/17 10:58 05/02/17 10:58 General appearance: Present: A&O X 3, no acute distress, answers questions appropriately - Eye Eye exam: Present: EOMI, PERRL, conjuntiva pink, sclera anicteric - Neck Neck exam general surgery: Present: supple, trachea midline. Absent: lymphadenopathy - Respiratory Respiratory exam: Present: CTAB. Absent: accessory muscle use, rales, rhonchi, wheezes - Cardiovascular Cardiovascular exam: Present: RRR, +S1, +S2. Absent: diastolic murmur, gallop, rubs, systolic murmur - GI/Abdominal GI/Abdominal exam: Present: normal bowel sounds, soft, no peritoneal signs. Absent: distended, tenderness - Extremities Exam Extremities exam: Present: warm, radial pulses palpable and symmetrical. Absent : calf tenderness, cyanotic, pedal edema - Neurological Exam Neurological exam: Present: CN II-XII intact, oriented X3, no focal deficits. Absent: facial droop, speech deficit - Skin Skin exam: Present: dry, intact
[2017-05-03 17:01] LABS: Ferritin 16 ng/ml (5-204)
--- NOTE | 2017-05-03 17:16 | Electrocardiograph Report ---
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
== END 2017-05-02 14:00 | disposition home or self-care (01) ==
LOC: EMEROO 21:54 → 3BNU 21:54 → SUATTDRO 05-01 01:46 → 3BNU 05-01 02:30
PROVIDERS: ADMIT Internal Medicine Hematology & Oncology; ATTEND Internal Medicine

== ENCOUNTER 2018-01-16 19:12 | Observation (INO) ==
--- NOTE | 2018-01-16 19:45 | Emergency Department Note ---
Disposition Clinical Impression: Chest pain Qualifiers: Chest pain type: unspecified Qualified Code(s): R07.9 - Chest pain, unspecified Hypertension Qualifiers: Hypertension type: unspecified Qualified Code(s): I10 - Essential (primary) hypertension Disposition: Admitted As Inpatient Condition: Good Referrals: Ward Davis MD [Primary Care Provider] - Forms: ED Satisfaction Letter General Adult HPI - General Chief complaint: ED Chest Pain Stated complaint: HTN / CP Time Seen by Provider: 01/16/18 19:32 Source: patient, family Limitations: no limitations Nursing Notes Reviewed: Yes Vital Signs Reviewed: Yes - History of Present Illness HPI Narrative: 77-year-old female who has a past medical history of DVT, hypertension, coronary arterial disease, hyperlipidemia. She reports that yesterday she had elevated blood pressure readings and nausea. She called her hydroelectric station chief who recommended that if she has a symptoms again to come the emergency department. She reports today she has had elevating blood readings since the morning. She also reports she is having intermittent headaches and chest pain and nausea. She reports the chest pain lasts a few seconds and then goes away. She is not currently experiencing chest pain but is still having some nausea. The headache has also resolved. She has been admitted in the past due to uncontrolled hypertension. She currently takes carvedilol, lisinopril, amlodipine for her blood pressure. She is on a Eliquis for her DVT. Last night she had low blood pressure (80 systolic), this AM her BP was still low, so she skipped her medications (and now her BP is high) Radiation: non-radiation Pain Severity: mild Pain Scale: 3 Consistency: intermittent Improves with: nothing Worsens with: nothing Associated symptoms: Reports: denies other symptoms Treatments Prior to Arrival: none - Related Data Home Medications Medication Instructions Recorded Confirmed Apixaban [Eliquis] 5 mg PO BID 01/16/18 01/16/18 Atorvastatin Calcium [Lipitor] 20 mg PO HS 01/16/18 01/16/18 Bimatoprost [Lumigan] 1 drop OP DAILY 01/16/18 01/16/18 Buspirone HCl [Buspar] 15 mg PO TID 01/16/18 01/16/18 Cyclosporine [Restasis] 1 each OP BID 01/16/18 01/16/18 Diphenoxylate/Atropine [Lomotil 1 each PO TID 01/16/18 01/16/18 2.5 mg/0.025 mg] Fluticasone Propionate Nasal 2 spray NS DAILY 01/16/18 01/16/18 [Flonase] Lisinopril [Zestril] 40 mg PO DAILY 01/16/18 01/16/18 Loratadine [Allergy Relief] 10 mg PO DAILY 01/16/18 01/16/18 Nitroglycerin [Nitrostat] 0.4 mg SL TID PRN 01/16/18 01/16/18 [place]-3 Fatty Acids [Fish Oil] 1,200 mg PO DAILY 01/16/18 01/16/18 Sertraline [Zoloft] 100 mg PO DAILY 01/16/18 01/16/18 amLODIPine [Norvasc] 5 mg PO DAILY 01/16/18 01/16/18 clonazePAM [Klonopin] 0.5 mg PO TID 01/16/18 01/16/18 hydrOXYzine pamoate [HydrOXYzine 25 mg PO BID PRN 01/16/18 01/16/18 Pamoate] hydroCHLOROthiazide 25 mg PO DAILY 01/16/18 01/16/18 [Hydrochlorothiazide] metFORMIN [Glucophage] 500 mg PO BIDWM 01/16/18 01/16/18 Allergies Allergy/AdvReac Type Severity Reaction Status Date / Time clonidine Allergy Swelling Verified 04/26/17 11:54 of Lip/Tongue/Throat citalopram [From Celexa] AdvReac Hypertensio Verified 04/26/17 11:54 n All systems ED: reviewed and negative except as stated. Constitutional: Denies: fever Eyes: Denies: vision change ENT ED: Denies: throat pain Cardiovascular: Reports: chest pain Respiratory: Denies: cough, dyspnea Gastrointestinal: Reports: nausea. Denies: abdominal pain, vomiting Musculoskeletal: Denies: back pain Integumentary: Denies: rash Neurological: Reports: headache Past Medical History - Past Medical History Medical history: Reports: hypertension, other Surgical history: Reports: non-contributory, carotid endarterectomy, cataract, hysterectomy, splenectomy, other Psychiatric history: Reports: anxiety, depression PRODUCTION LINE MANAGER history: Reports: no PRODUCTION LINE MANAGER history - Social History Smoking Status: Never smoker Smokeless Tobacco Status: No Alcohol use: Reports: none Drug use: Reports: none Physical Exam - General Limitations: no limitations General appearance: alert, in no apparent distress - Head Head exam: atraumatic - Eye Eye exam: Present: normal appearance, PERRL - ENT ENT exam: normal exam - Neck Neck exam: Present: normal inspection - Chest Chest inspection: Present: normal inspection - Respiratory Respiratory exam: Present: normal lung sounds bilaterally. Absent: respiratory distress - Cardiovascular Cardiovascular exam: Present: regular rate, normal rhythm - Abdominal Exam Abdominal exam: Present: soft, Non-Tender - Extremities Exam Extremities exam: Present: normal inspection. Absent: pedal edema - Neurological Exam Neurological exam: Present: alert, oriented X3 - Skin Skin exam: Present: warm, dry Course Course Narrative: She is been pain-free since she has been the emergency department. Aspirin has been ordered. Blood pressure initially was 200 and has since been falling and is currently at 145 systolic. We will admit her for chest pain rule out. Negative troponin and EKG is unchanged from priors. Vital Signs Temperature 97.6 F 01/16/18 19:17 Pulse Rate 92 01/16/18 19:17 Respiratory Rate 14 01/16/18 19:17 Blood Pressure 206/97 01/16/18 19:17 O2 Sat by Pulse Oximetry 97 01/16/18 19:17 Temperature 97.6 F 01/16/18 19:26 Pulse Rate 76 01/16/18 21:27 Respiratory Rate 16 01/16/18 21:27 Blood Pressure 139/73 01/16/18 21:27 O2 Sat by Pulse Oximetry 97 01/16/18 21:27 Oxygen Delivery Oxygen Delivery Room Air Medical Decision Making - Medical Records Medical records reviewed: Yes I reviewed the patient's medical records. - Lab Data Lab results reviewed: Yes I reviewed the patient's lab results. Result diagrams: 01/16/18 19:31 01/16/18 19:31 Lab Results 01/16/18 01/16/18 01/16/18 Range/Units 19:31 19:31 19:31 WBC 6.5 (4.3-11.1) K/mcL RBC 3.63 L (3.82-4.97) M/mcL Hgb 12.2 (11.5-15.4) g/dL Hct 33.9 L (35.3-44.9) % MCV 93.4 (83.0-100.0) fL MCH 33.6 H (28.0-33.3) pg MCHC 36.0 H (31.6-35.5) g/dL RDW 12.6 (11.5-14.5) % Plt Count 232 (140-400) K/mcL MPV 10.4 (9.4-12.4) fL Immature Gran % 0.3 (0-4) % Seg Neutrophils % 49.1 % Lymphocytes % 34.7 % Monocytes % 7.3 % Eosinophils % 7.8 % Basophils % 0.8 % Neutrophils # 3.2 (1.6-8.9) K/mcL Lymphocytes # 2.3 (0.6-4.6) K/mcL Monocytes # 0.5 (0.0-1.3) K/mcL Eosinophils # 0.5 (0.0-0.6) K/mcL Basophils # 0.1 (0.0-0.2) K/mcL Nucleated RBCs/100 WBC 0.3 H (0) /100 WBC PT 17.0 H (9.4-12.1) Seconds INR 1.6 Sodium 131 L (136-145) mEq/L Potassium 3.4 L (3.5-5.1) mEq/L Chloride 98 (98-107) mEq/L Carbon Dioxide 18 L (23-29) mEq/L BUN 17 (8-23) mg/dL Creatinine 0.68 (0.60-1.20) mg/dL Est GFR ( Amer) > 60 (> 60) Est GFR (Non-Af Amer) > 60 (> 60) BUN/Creatinine Ratio 25 (6-26) Glucose 102 (70-105) mg/dL Calculated Osmolality 274 L (280-300) Calcium 8.9 (8.6-10.3) mg/dL Troponin I < 0.03 (< 0.04) ng/mL - Radiology Data Radiology results reviewed: Yes I reviewed the patient's radiology results. - EKG Data EKG #1 EKG attestation: Yes I reviewed and interpreted this EKG. EKG shows normal: sinus rhythm Rate: normal Rhythm: NSR When compared to previous EKG there are: no significant changes Interpretation: unchanged when compared to prior tracing (date)
[2018-01-16 19:53] LABS: Basophils # 0.1 K/mcL (0.0-0.2); Basophils % 0.8 %; Eosinophils # 0.5 K/mcL (0.0-0.6); Eosinophils % 7.8 %; Hematocrit 33.9 % (35.3-44.9); Hemoglobin 12.2 g/dL (11.5-15.4); Immature Granulocytes % 0.3 % (0-4); Lymphocytes # 2.3 K/mcL (0.6-4.6); Lymphocytes % 34.7 %; Mean Corpuscular Hemoglobin 33.6 pg (28.0-33.3); Mean Corpuscular Volume 93.4 fL (83.0-100.0); Mean Platelet Volume 10.4 fL (9.4-12.4); Monocytes # 0.5 K/mcL (0.0-1.3); Monocytes % 7.3 %; Neutrophils # 3.2 K/mcL (1.6-8.9); Nucleated Red Blood Cells 0.3 /100 WBC (0); Platelet Count 232 K/mcL (140-400); Red Blood Count 3.63 M/mcL (3.82-4.97); Red Cell Distribution Width 12.6 % (11.5-14.5); Segmented Neutrophils % 49.1 %
[2018-01-16 19:59] LABS: INR 1.6
[2018-01-16 20:23] LABS: BUN/Creatinine Ratio 25 (6-26); Blood Urea Nitrogen 17 mg/dL (8-23); Calcium 8.9 mg/dL (8.6-10.3); Carbon Dioxide 18 mEq/L (23-29); Chloride 98 mEq/L (98-107); Glucose 102 mg/dL (70-105); Osmolality,Calculated 274 (280-300); Potassium 3.4 mEq/L (3.5-5.1); Sodium 131 mEq/L (136-145); Troponin I < 0.03 ng/mL (< 0.04); eGFR For African Americans > 60 (> 60); eGFR For Non-African Americans > 60 (> 60)
--- NOTE | 2018-01-16 20:33 | Emergency Department Note ---
Disposition Clinical Impression: Chest pain, Hypertension Disposition: Admitted As Inpatient Condition: Good Referrals: Ward Davis MD [Primary Care Provider] - Forms: ED Satisfaction Letter General Adult HPI - General Chief complaint: ED Chest Pain Stated complaint: HTN / CP Time Seen by Provider: 01/16/18 19:32 Source: patient, family Limitations: no limitations Nursing Notes Reviewed: Yes Vital Signs Reviewed: Yes - History of Present Illness Pain Scale: 3 Improves with: nothing Worsens with: nothing Associated symptoms: Reports: denies other symptoms Treatments Prior to Arrival: none - Related Data Home Medications Medication Instructions Recorded Confirmed Apixaban [Eliquis] 5 mg PO BID 01/16/18 01/16/18 Atorvastatin Calcium [Lipitor] 20 mg PO HS 01/16/18 01/16/18 Bimatoprost [Lumigan] 1 drop OP DAILY 01/16/18 01/16/18 Buspirone HCl [Buspar] 15 mg PO TID 01/16/18 01/16/18 Cyclosporine [Restasis] 1 each OP BID 01/16/18 01/16/18 Diphenoxylate/Atropine [Lomotil 1 each PO TID 01/16/18 01/16/18 2.5 mg/0.025 mg] Fluticasone Propionate Nasal 2 spray NS DAILY 01/16/18 01/16/18 [Flonase] Lisinopril [Zestril] 40 mg PO DAILY 01/16/18 01/16/18 Loratadine [Allergy Relief] 10 mg PO DAILY 01/16/18 01/16/18 Nitroglycerin [Nitrostat] 0.4 mg SL TID PRN 01/16/18 01/16/18 [place]-3 Fatty Acids [Fish Oil] 1,200 mg PO DAILY 01/16/18 01/16/18 Sertraline [Zoloft] 100 mg PO DAILY 01/16/18 01/16/18 amLODIPine [Norvasc] 5 mg PO DAILY 01/16/18 01/16/18 clonazePAM [Klonopin] 0.5 mg PO TID 01/16/18 01/16/18 hydrOXYzine pamoate [HydrOXYzine 25 mg PO BID PRN 01/16/18 01/16/18 Pamoate] hydroCHLOROthiazide 25 mg PO DAILY 01/16/18 01/16/18 [Hydrochlorothiazide] metFORMIN [Glucophage] 500 mg PO BIDWM 01/16/18 01/16/18 Allergies Allergy/AdvReac Type Severity Reaction Status Date / Time clonidine Allergy Swelling Verified 04/26/17 11:54 of Lip/Tongue/Throat citalopram [From Celexa] AdvReac Hypertensio Verified 04/26/17 11:54 n Constitutional: Denies: fever Eyes: Denies: vision change ENT ED: Denies: throat pain Cardiovascular: Reports: chest pain Respiratory: Denies: cough, dyspnea Gastrointestinal: Reports: nausea. 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 - Social History Smoking Status: Never smoker Smokeless Tobacco Status: No Alcohol use: Reports: none Drug use: Reports: none Physical Exam - General Limitations: no limitations General appearance: alert, in no apparent distress Course Vital Signs Temperature 97.6 F 01/16/18 19:17 Pulse Rate 92 01/16/18 19:17 Respiratory Rate 14 01/16/18 19:17 Blood Pressure 206/97 01/16/18 19:17 O2 Sat by Pulse Oximetry 97 01/16/18 19:17 Temperature 97.6 F 01/16/18 19:26 Pulse Rate 76 01/16/18 21:27 Respiratory Rate 16 01/16/18 21:27 Blood Pressure 139/73 01/16/18 21:27 O2 Sat by Pulse Oximetry 97 01/16/18 21:27 Oxygen Delivery Oxygen Delivery Room Air Medical Decision Making - Lab Data Result diagrams: 01/16/18 19:31 01/16/18 19:31 Lab Results 01/16/18 01/16/18 01/16/18 Range/Units 19:31 19:31 19:31 WBC 6.5 (4.3-11.1) K/mcL RBC 3.63 L (3.82-4.97) M/mcL Hgb 12.2 (11.5-15.4) g/dL Hct 33.9 L (35.3-44.9) % MCV 93.4 (83.0-100.0) fL MCH 33.6 H (28.0-33.3) pg MCHC 36.0 H (31.6-35.5) g/dL RDW 12.6 (11.5-14.5) % Plt Count 232 (140-400) K/mcL MPV 10.4 (9.4-12.4) fL Immature Gran % 0.3 (0-4) % Seg Neutrophils % 49.1 % Lymphocytes % 34.7 % Monocytes % 7.3 % Eosinophils % 7.8 % Basophils % 0.8 % Neutrophils # 3.2 (1.6-8.9) K/mcL Lymphocytes # 2.3 (0.6-4.6) K/mcL Monocytes # 0.5 (0.0-1.3) K/mcL Eosinophils # 0.5 (0.0-0.6) K/mcL Basophils # 0.1 (0.0-0.2) K/mcL Nucleated RBCs/100 WBC 0.3 H (0) /100 WBC PT 17.0 H (9.4-12.1) Seconds INR 1.6 Sodium 131 L (136-145) mEq/L Potassium 3.4 L (3.5-5.1) mEq/L Chloride 98 (98-107) mEq/L Carbon Dioxide 18 L (23-29) mEq/L BUN 17 (8-23) mg/dL Creatinine 0.68 (0.60-1.20) mg/dL Est GFR ( Amer) > 60 (> 60) Est GFR (Non-Af Amer) > 60 (> 60) BUN/Creatinine Ratio 25 (6-26) Glucose 102 (70-105) mg/dL Calculated Osmolality 274 L (280-300) Calcium 8.9 (8.6-10.3) mg/dL Troponin I < 0.03 (< 0.04) ng/mL Attestation Statement - Attestation Attestation: I, Yordan Henry MD, personally evaluated this patient and discussed their management with the resident physician. I reviewed the resident's note and agree with the documented findings, medical decision making, and plan of care. 77-year-old female presents to the emergency department with a complaint of her blood pressure running low yesterday and today. She also complains of having intermittent substernal chest pains yesterday and today. The pain sometimes radiates to the left arm. Some nausea with the pain. No vomiting. No diaphoresis. Some mild shortness of breath. Patient states her blood pressure was low last evening but she went ahead and took her evening medications. This morning when she got up it was very low. She has not felt well all day. She skipped her blood pressure medicine this morning and this afternoon her blood pressure came back up and was actually higher than usual. On examination patient is a well-developed thin elderly female in no acute distress. She is alert and oriented 3. There is no cyanosis or diaphoresis. She does appear very anxious. Chest is nontender to palpation. Breath sounds are clear and equal bilaterally. Heart regular rate and rhythm. Abdomen soft and nontender with normal bowel sounds. Labs reviewed. Troponin normal. Chest x-ray shows left basilar atelectasis. EKG shows normal sinus rhythm with ventricular rate of 90. No acute ST segment elevations or depressions. No arrhythmia or ectopy. The hospitalist, Dr. Deutsch, was consulted and accepted admission of the patient.
[2018-01-16] MEDS ORDERED: Aspirin 325 MG TABLET PO ONE (21:47)
[2018-01-16] MEDS ORDERED: Acetaminophen 325 MG TABLET PO PRN (22:34)
[2018-01-16] MEDS ORDERED: Naloxone 0.4 MG/ML INJ IVP PRN (22:34)
[2018-01-16] MEDS ORDERED: Nitroglycerin 0.4 MG TAB.SUBL SL PRN (22:36)
--- NOTE | 2018-01-16 23:24 | Internal Med History&Physical ---
Date of Encounter: 01/16/18 Time of Encounter: 21:00 Internal Medicine - H&P: HPI Chief complaint: Uncontrolled hypertension Admitted From: Home Plans for Post Hospital Care: Home History of present illness: Ms. Lopez is a 77 year old female present to ER for difficultly controlled hypertension. Past medical history is significant for diabetes, history of DVT on adequacies, CAD, Takotsubo cardiomyopathy. Patient said she has hypertension, which is a very difficult to manage. Her BP is is sometimes high, sometimes low. This morning, she has low BP at 80s, although she did not take any blood pressure medication. At this level of blood pressure, patient has dizziness, lightheaded, nausea, shaking, diaphoresis , intermittent chest pain. Patient denies shortness of breath. The chest pain located in substernal area, pressure-like, lasts for several second, radiated to left arm. Patient complaint of diarrhea since yesterday, she had 8 bowel movements last night and 6 bowel movements today. Stool is loose, no blood in it. Patient denies recent antibiotic use. In the emergency room, her BP is high to 200s level but get down to 150 without any medication. Patient feels comfortable at BP of 150s, denies nausea or chest pain. Patient was admitted for further management. Past Med Surg Social Fam HX - Past Medical History Medical history: DVT, diabetes, hypertension, other Psychiatric history: anxiety, depression - Past Surgical History Surgical History: non-contributory, carotid endarterectomy, cataract, hysterectomy, splenectomy, other - Social History Smoking Status: Former smoker Smokeless Tobacco Status: No Alcohol use: none Drug use: none - Family History Mother Adopted: No Family Member Ethnicity: Non- Living Status: Hx Family Cardiac Disorders: Yes (HTN) Hx Family Respiratory Disorders: No Hx Family Cancer: No Hx Family GI Disorders: No Hx Family Endocrine Disorder: No Hx Family Neuromuscular Disorders: Yes (CVA) Hx Family Neurologic Disorders: Yes (Stroke) Hx Family HEENT Disorders: No Hx Family Autoimmune Disorders: No Father Family Member Ethnicity: Non- Living Status: Hx Family Cardiac Disorders: Yes ([place]) Maternal Adopted: No Family Member Ethnicity: Non- Living Status: Hx Family Cardiac Disorders: Yes (HTN) Hx Family Respiratory Disorders: No Hx Family Cancer: No Hx Family GI Disorders: No Hx Family Endocrine Disorder: No Hx Family Neuromuscular Disorders: No Hx Family Neurologic Disorders: Yes (CVA) Hx Family HEENT Disorders: No Hx Family Autoimmune Disorders: No Internal Medicine - H&P: Meds Apixaban [Eliquis] 5 mg PO BID 01/16/18 [History] Atorvastatin Calcium [Lipitor] 20 mg PO HS 01/16/18 [History] Bimatoprost [Lumigan] 1 drop OP DAILY 01/16/18 [History] Buspirone HCl [Buspar] 15 mg PO TID 01/16/18 [History] Cyclosporine [Restasis] 1 each OP BID 01/16/18 [History] Diphenoxylate/Atropine [Lomotil 2.5 mg/0.025 mg] 1 each PO TID 01/16/18 [History ] Fluticasone Propionate Nasal [Flonase] 2 spray NS DAILY 01/16/18 [History] Lisinopril [Zestril] 40 mg PO DAILY 01/16/18 [History] Loratadine [Allergy Relief] 10 mg PO DAILY 01/16/18 [History] Nitroglycerin [Nitrostat] 0.4 mg SL TID PRN 01/16/18 [History] [place]-3 Fatty Acids [Fish Oil] 1,200 mg PO DAILY 01/16/18 [History] Sertraline [Zoloft] 100 mg PO DAILY 01/16/18 [History] amLODIPine [Norvasc] 5 mg PO DAILY 01/16/18 [History] clonazePAM [Klonopin] 0.5 mg PO TID 01/16/18 [History] hydrOXYzine pamoate [HydrOXYzine Pamoate] 25 mg PO BID PRN 01/16/18 [History] hydroCHLOROthiazide [Hydrochlorothiazide] 25 mg PO DAILY 01/16/18 [History] metFORMIN [Glucophage] 500 mg PO BIDWM 01/16/18 [History] 3 Allergy/AdvReac Type Severity Reaction Status Date / Time clonidine Allergy Swelling Verified 04/26/17 11:54 of Lip/Tongue/Throat citalopram [From Celexa] AdvReac Hypertensio Verified 04/26/17 11:54 n All Systems PM: A 10-system review of systems was performed and is negative for pertinent findings except as documented above in the HPI. - Constitutional Vitals: Temp Pulse Resp BP Pulse Ox 97.4 F L 67 15 146/68 97 01/16/18 22:29 01/16/18 22:29 01/16/18 22:29 01/16/18 22:29 01/16/18 23:11 General appearance: Present: A&O X 3, no acute distress, answers questions appropriately - Head Head exam: Present: atraumatic, normocephalic - Eye Eye exam: Present: PERRL, conjuntiva pink, sclera anicteric Pupils: Present: PERRL - Neck Neck exam general surgery: Present: supple, trachea midline. Absent: lymphadenopathy - Respiratory Respiratory exam: Present: CTAB. Absent: accessory muscle use, rales, rhonchi, wheezes - Cardiovascular Cardiovascular exam: Present: RRR, +S1, +S2. Absent: diastolic murmur, gallop, rubs, systolic murmur - GI/Abdominal GI/Abdominal exam: Present: hyperactive bowel sounds, soft, tenderness (Mild tenderness without rebound or guarding), no peritoneal signs. Absent: distended - Extremities Exam Extremities exam: Present: warm, radial pulses palpable and symmetrical. Absent : calf tenderness, cyanotic, pedal edema - Neurological Exam Neurological exam: Present: CN II-XII intact, oriented X3, no focal deficits. Absent: pronater drift, facial droop, speech deficit - Skin Skin exam: Present: dry, intact Internal Med - H&P Results - Labs CBC & Chem 7: 01/16/18 19:31 01/16/18 19:31 - Assessment and plan (1) Diarrhea Current Visit: Yes Status: Acute Assessment and plan: Patient has recent diarrhea, etiology is undetermined. Will check stool GI panel. Patient has good appetite and by mouth intake, will encourage hydration. No IV fluid at this point. Qualifiers: Diarrhea type: unspecified type Qualified Code(s): R19.7 - Diarrhea, unspecified (2) Chest pain Current Visit: Yes Status: Chronic Assessment and plan: Patient's chest pain is likely due to hypotension. Right now no chest pain. - Continuous cardiac monitoring - Track 3 sets of troponin - Avoid hypotension - Echocardiogram Qualifiers: Chest pain type: unspecified Qualified Code(s): R07.9 - Chest pain, unspecified (3) HTN (hypertension) Current Visit: Yes Status: Chronic Assessment and plan: Patient has hypertension but sensitive to hypertensive medication. Poorly managed hypertension. Need close monitoring. - Consider patient's age, hypotension is more risky and we should try to avoid. Recent hypotension probably due to diarrhea - We will adjust her home medication: Hold amlodipine 5mg HS, decrease lisinopril from 40 mg to 20 mg in a.m., continue hydrochlorothiazide. - Check vitals every 4 hours and adjust medication accordingly Qualifiers: Hypertension type: essential hypertension Qualified Code(s): I10 - Essential (primary) hypertension (4) DVT prophylaxis Current Visit: No Status: Acute Assessment and plan: Patient is on Eliquis (5) CAD (coronary artery disease) Current Visit: No Status: Chronic Assessment and plan: History of CAD. Continue home medications Eliquis and statin. Qualifiers: Coronary Disease-Associated Artery/Lesion type: unspecified vessel or lesion type [place] vs. transplanted heart: [place] heart Associated angina: with stable angina Qualified Code(s): I25.118 - Atherosclerotic heart disease of [place] coronary artery with other forms of angina pectoris (6) DVT (deep venous thrombosis) Current Visit: No Status: Chronic Assessment and plan: Patient has history of DVT, on Eliquis now. 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 mellitus residential insulin use: without residential use Diabetes mellitus complication status: without complication Qualified Code(s): E11.9 - Type 2 diabetes mellitus without complications (8) Takotsubo cardiomyopathy Current Visit: No Status: Suspected Assessment and plan: History of Takotsubo cardiomyopathy, recovered now. Appears euvolemic at this point. Will repeat echo. - Time Spent With Patient Total time spent is greater than 50% in coordination of care (as documented) at patient's floor/unit and/or counseling patient: Greater than 35 minutes
[2018-01-17] MEDS: hydrOXYzine pamoate 25 MG CAPSULE PO PRN ×2 (04:53→21:24)
[2018-01-17] MEDS ORDERED: *HR* Dextrose 50 % in Water (Syg) 50 ML SYRINGE IVP PRN (04:53)
[2018-01-17] MEDS ORDERED: D5% in Water 1,000 ML IVC PRN (04:53)
[2018-01-17] MEDS ORDERED: Dextrose Gel 15 GM/37.5 ML TUBE PO PRN ×2 (04:53)
--- NOTE | 2018-01-17 04:59 | Event Note ---
Date of Encounter: 01/17/18 Time of Encounter: 04:30 Pt report another episode of chest pain at 4:20 am, last several minutes, radiated to left arm, resolved by one dose of SL NTG. Vitals are stable when CP happens. EKG has been done and reviewed by me, unremarkable. Will cont closely monitoring. NTG PRN. Pt had one stress test in last Mar (9 months ago), which is negative. Will consider stress test in tomorrow AM if pt is pain free and troponin negative.
[2018-01-17 06:33] LABS: Basophils % 0.8 %; Eosinophils # 0.6 K/mcL (0.0-0.6); Eosinophils % 11.5 %; Hematocrit 32.1 % (35.3-44.9); Hemoglobin 11.2 g/dL (11.5-15.4); Immature Granulocytes % 0.2 % (0-4); Lymphocytes # 1.7 K/mcL (0.6-4.6); Lymphocytes % 36.3 %; Mean Corpuscular HGB Conc 34.9 g/dL (31.6-35.5); Mean Corpuscular Hemoglobin 32.4 pg (28.0-33.3); Mean Corpuscular Volume 92.8 fL (83.0-100.0); Mean Platelet Volume 10.9 fL (9.4-12.4); Monocytes # 0.5 K/mcL (0.0-1.3); Monocytes % 9.4 %; Platelet Count 206 K/mcL (140-400); Red Blood Count 3.46 M/mcL (3.82-4.97); Red Cell Distribution Width 12.7 % (11.5-14.5); Segmented Neutrophils % 41.8 %
[2018-01-17 06:46] LABS: BUN/Creatinine Ratio 25 (6-26); Blood Urea Nitrogen 14 mg/dL (8-23); Calcium 8.5 mg/dL (8.6-10.3); Carbon Dioxide 25 mEq/L (23-29); Chloride 102 mEq/L (98-107); Chol/HDL Ratio 1.9 (0-4.9); Cholesterol 77 mg/dL (< 200); Glucose 87 mg/dL (70-105); HDL Cholesterol 41 mg/dL (40-59); LDL Cholesterol,Calculated 16 mg/dL (0-99); Magnesium 0.9 mg/dL (1.6-2.6); Osmolality,Calculated 282 (280-300); Potassium 3.5 mEq/L (3.5-5.1); Sodium 136 mEq/L (136-145); Triglycerides 99 mg/dL (< 150); eGFR For African Americans > 60 (> 60); eGFR For Non-African Americans > 60 (> 60)
[2018-01-17] MEDS ORDERED: *HR* Metformin 500 MG TABLET PO SCH (08:00)
[2018-01-17] MEDS: Insulin LISPRO 300 UNITS/3 ML VIAL SQ SCH ×3 (08:12→17:04)
[2018-01-17] MEDS: hydroCHLOROthiazide 25 MG TABLET PO SCH (08:49)
[2018-01-17] MEDS: clonazePAM 0.5 MG TABLET PO SCH ×3 (08:49→20:07)
[2018-01-17] MEDS: Lisinopril 20 MG TABLET PO SCH (08:50)
[2018-01-17] MEDS: (Cyclosporine [Restasis] 1 EACH) OP SCH ×2 (08:50→20:09)
[2018-01-17] MEDS: Apixaban 5 MG TABLET PO SCH ×2 (08:50→20:07)
[2018-01-17] MEDS: Loratadine 10 MG TABLET PO SCH (08:50)
[2018-01-17] MEDS: Latanoprost 2.5 ML BOTTLE BOTH EYES SCH (08:52)
[2018-01-17] MEDS: Fluticasone Propionate Nasal 50 MCG/SPRAY BOTTLE NS SCH (08:52)
[2018-01-17] MEDS ORDERED: (Omega-3 Fatty Acids [Fish Oil] 1,200 MG) PO SCH (09:00)
[2018-01-17] MEDS ORDERED: hydroCHLOROthiazide 25 MG TABLET PO SCH (09:00)
[2018-01-17] MEDS ORDERED: Artificial Tears SOLN 15 ML BOTTLE BOTH EYES PRN (14:00)
--- NOTE | 2018-01-17 15:18 | Internal Med Progress Note ---
Date of Encounter: 01/17/18 Time of Encounter: 15:16 - Assessment and plan (1) Chest pain Current Visit: Yes Status: Chronic Assessment and plan: Patient's chest pain is likely due to hypotension. Right now no chest pain. - Continuous cardiac monitoring - Troponin negative x3 - Avoid hypotension - echo LVEF 65%. Mild left ventricular diastolic dysfunction. Normal right ventricular structure and function. Mild tricuspid regurgitation. No pulmonary hypertension. Stress test in am NPO after midnight Qualifiers: Chest pain type: unspecified Qualified Code(s): R07.9 - Chest pain, unspecified (2) HTN (hypertension) Current Visit: Yes Status: Chronic Assessment and plan: Patient has hypertension but sensitive to hypertensive medication. Poorly managed hypertension. Need close monitoring.Presently she is stable with systolic ranging 134-109 - Consider patient's age, hypotension is more risky and we should try to avoid. Recent hypotension probably due to diarrhea - We will adjust her home medication: Hold amlodipine 5mg HS, decrease lisinopril from 40 mg to 20 mg in a.m., continue hydrochlorothiazide. 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 Continue home medications Eliquis and statin. Qualifiers: Coronary Disease-Associated Artery/Lesion type: unspecified vessel or lesion type [place] vs. transplanted heart: [place] heart Associated angina: with stable angina Qualified Code(s): I25.118 - Atherosclerotic heart disease of [place] coronary artery with other forms of angina pectoris (5) Takotsubo cardiomyopathy Current Visit: No Status: Suspected Assessment and plan: History of Takotsubo cardiomyopathy, recovered now. Appears euvolemic at this point. repeat echo LVEF 65%. Mild left ventricular diastolic dysfunction. Normal right ventricular structure and function. Mild tricuspid regurgitation. No pulmonary hypertension. (6) DVT prophylaxis Current Visit: No Status: Acute Assessment and plan: Patient is on Eliquis (7) DVT (deep venous thrombosis) Current Visit: No Status: Chronic Assessment and plan: Patient has history of DVT, on Eliquis now. 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 She does complain of dry eyes requesting eye drops. Reviewed treatment plan with patient who verbalizes understanding. - Constitutional Vitals: Temp Pulse Resp BP Pulse Ox 98.0 F 71 14 109/62 95 01/17/18 11:56 01/17/18 11:56 01/17/18 11:56 01/17/18 11:56 01/17/18 11:56 General appearance: Present: A&O X 3, no acute distress, answers questions appropriately - Head Head exam: Present: atraumatic, normocephalic - Eye Eye exam: Present: PERRL, conjuntiva pink, sclera anicteric Pupils: Present: PERRL - Neck Neck exam general surgery: Present: supple, trachea midline. Absent: lymphadenopathy - Respiratory Respiratory exam: Present: CTAB. Absent: accessory muscle use, rales, rhonchi, wheezes - Cardiovascular Cardiovascular exam: Present: RRR, +S1, +S2. Absent: diastolic murmur, gallop, rubs, systolic murmur - GI/Abdominal GI/Abdominal exam: Present: normal bowel sounds, soft, no peritoneal signs. Absent: distended, tenderness - Extremities Exam Extremities exam: Present: warm, radial pulses palpable and symmetrical. Absent : calf tenderness, cyanotic, pedal edema - Neurological Exam Neurological exam: Present: CN II-XII intact, oriented X3, no focal deficits. Absent: pronater drift, facial droop, speech deficit - Skin Skin exam: Present: dry, intact Internal Medicine: Result - Labs CBC & Chem 7: 01/17/18 04:41 01/17/18 04:41 Labs: Short CBC 01/17/18 Range/Units 04:41 WBC 4.8 (4.3-11.1) K/mcL Hgb 11.2 L (11.5-15.4) g/dL Hct 32.1 L (35.3-44.9) % Plt Count 206 (140-400) K/mcL Neutrophils # 2.0 (1.6-8.9) K/mcL BMP 01/17/18 04:41 Sodium 136 Potassium 3.5 Chloride 102 Carbon Dioxide 25 BUN 14 Creatinine 0.57 L Glucose 87 Calcium 8.5 L Cardiac Enzymes 01/16/18 01/17/18 01/17/18 Range/Units 22:49 04:41 10:06 Troponin I < 0.03 < 0.03 < 0.03 (< 0.04) ng/mL - ABG Interpretation ABG results: PT/INR, D-dimer PT 17.0 Seconds (9.4-12.1) H 01/16/18 19:31 - Impressions Impressions Echocardiogram 01/17/18 07:00 Impressions: LVEF 65%. Mild left ventricular diastolic dysfunction. Normal right ventricular structure and function. Mild tricuspid regurgitation. No pulmonary hypertension. Left Ventricular Wall Motion: Rest Echo Findings All wall segments showed normal motion. Findings: Study Quality * Technically sub-optimal due to body habitus. BSA 1.4 ECG Findings * Normal sinus rhythm. Right Ventricle * Normal right ventricular structure and function. Left Ventricle * LVEF 65%. * Mild left ventricular diastolic dysfunction. * Normal LV chamber size. * LV wall thickness measurements not well obtained. Left Atrium * Normal left atrial size. Right Atrium * Normal right atrial size. Mitral Valve * Mild mitral annular calcification * No mitral regurgitation. * No mitral stenosis. * Mildly thickened mitral valve leaflets. Aortic Valve * No aortic regurgitation. * Aortic valve not well visualized. * No aortic stenosis. Tricuspid Valve * Normal tricuspid valve structure. * Mild tricuspid regurgitation. * Estimated RA pressure is 3 mmHg. * Estimated RVSP is 27 mmHg. * No pulmonary hypertension. Pulmonic Valve * Pulmonic valve is not well visualized. * No pulmonic stenosis. * No pulmonic regurgitation. Pulmonary Artery * Pulmonary artery not well visualized. Aorta * Not well visualized. Pericardium * There is no pericardial effusion present. Interatrial Septum * No evidence of PFO by color Doppler. IVC * Normal IVC dimensions and inspiratory collapse. Consult Discharge Plan - Plan Referrals: Ward Davis MD [Primary Care Provider] -
[2018-01-18 05:22] LABS: Basophils % 0.9 %; Eosinophils # 0.6 K/mcL (0.0-0.6); Hemoglobin 11.4 g/dL (11.5-15.4); Immature Granulocytes % 0.2 % (0-4); Lymphocytes # 1.9 K/mcL (0.6-4.6); Lymphocytes % 40.2 %; Mean Corpuscular HGB Conc 35.6 g/dL (31.6-35.5); Mean Corpuscular Hemoglobin 33.7 pg (28.0-33.3); Mean Corpuscular Volume 94.7 fL (83.0-100.0); Mean Platelet Volume 10.9 fL (9.4-12.4); Monocytes # 0.4 K/mcL (0.0-1.3); Monocytes % 8.3 %; Neutrophils # 1.8 K/mcL (1.6-8.9); Platelet Count 194 K/mcL (140-400); Red Blood Count 3.38 M/mcL (3.82-4.97); Red Cell Distribution Width 12.8 % (11.5-14.5); Segmented Neutrophils % 38.4 %
[2018-01-18 05:44] LABS: BUN/Creatinine Ratio 37 (6-26); Blood Urea Nitrogen 20 mg/dL (8-23); Calcium 8.6 mg/dL (8.6-10.3); Carbon Dioxide 29 mEq/L (23-29); Chloride 105 mEq/L (98-107); Glucose 121 mg/dL (70-105); Osmolality,Calculated 294 (280-300); Potassium 3.8 mEq/L (3.5-5.1); Sodium 140 mEq/L (136-145); eGFR For African Americans > 60 (> 60); eGFR For Non-African Americans > 60 (> 60)
[2018-01-18] MEDS ORDERED: Regadenoson 0.4 MG/5 ML SYRINGE IVP ONE (05:54)
[2018-01-18 05:59] LABS: Adenovirus F 40/41 PCR Not detected (Not detect); Astrovirus PCR Not detected (Not detect); C.difficile Toxin A/B by PCR Not detected (Not detect); Campylobacter by PCR Not detected (Not detect); Cryptosporidium by PCR Not detected (Not detect); Cyclospora cayetanensis PCR Not detected (Not detect); E. coli O157 by PCR Not detected (Not detect); Entamoeba histolytica PCR Not detected (Not detect); Enteroaggregative E.coli(EAEC) Not detected (Not detect); Enteropathogenic E.coli(EPEC) Not detected (Not detect); Enterotoxigenic E.coli (ETEC) Not detected (Not detect); Giardia lamblia PCR Not detected (Not detect); Norovirus GI/GII PCR Not detected (Not detect); Plesiomonas shigelloides PCR Not detected (Not detect); Rotavirus A PCR Not detected (Not detect); Salmonella PCR Not detected (Not detect); Sapovirus PCR Not detected (Not detect); Shig/EnteroinvasiveE coli EIEC Not detected (Not detect); Shigalike tox-prod E coli STEC Not detected (Not detect); Vibrio PCR Not detected (Not detect); Vibrio cholerae PCR Not detected (Not detect); Yersinia enterocolitica PCR Not detected (Not detect)
[2018-01-18 06:26] VITALS: BP 116/67
[2018-01-18] MEDS: Insulin LISPRO 300 UNITS/3 ML VIAL SQ SCH (07:17)
--- NOTE | 2018-01-18 09:26 | Discharge Summary ---
Orders not resulted at time of discharge: Pending orders 01/17/18 04:35 EKG [ECG 12 lead ECG] [ECG] Stat 01/17/18 04:51 NM cindy perf SPECT multi [NM] Routine Date of Encounter: 01/18/18 Time of Encounter: 09:46 - Discharge Diagnosis (1) Chest pain Priority: Primary Status: Resolved Assessment and Plan: presented with chest pain in the setting of uncontrolled blood pressure. Serial troponin negative, EKG without acute ST changes. TTE with EF 60%, no wall motion abnormalities. Stress test negative for infarct or ischemia. Suspect chest pain secondary to uncontrolled blood pressure which is secondary to increased home stressors. She does have history of DVT and is on Eliquis. Hemodynamically stable, low suspicion for other acute abnormalities such as pulmonary embolism and/or dissection. Chest pain resolved at time of discharge. No further cardiac testing indicated this time. Follow-up with PCP outpatient. Qualifiers: Chest pain type: unspecified Qualified Code(s): R07.9 - Chest pain, unspecified (2) HTN (hypertension) Priority: Primary Status: Chronic Assessment and Plan: per hx. Presented with a bowel blood pressure; patient monitors blood pressure at home and blood pressure was ranging from SBP's in the 90s to the 200s. Patient reports medication compliance. She also reports increased home stressors at home which is likely contributing to episodes of uncontrolled BP ( patient's son lives with her and has multiple medical problems and health has been declining). Hypotension likely secondary to aggressive BP management ( patient is on 3 antihypertensive agents). BP normotensive with discontinuing home amlodipine, continuing home HCTZ and home lisinopril (lisinopril at half dose). Discharge home on lisinopril 20 mg daily and HCTZ 25 mg daily only. Stop home amlodipine. Patient monitors BP at home. Advised to follow-up with PCP. Qualifiers: Hypertension type: essential hypertension Qualified Code(s): I10 - Essential (primary) hypertension (3) Diabetes mellitus Priority: Secondary Status: Chronic Assessment and Plan: per hx. Blood sugars controlled. Cont home diabetes medication regimen 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 mellitus jail insulin use: without jail use Diabetes mellitus complication status: without complication Qualified Code(s): E11.9 - Type 2 diabetes mellitus without complications (4) CAD (coronary artery disease) Priority: Secondary Status: Chronic Assessment and Plan: per hx. [facility] with nonobstructive CAD. Echocardiogram and stress test as noted above. Continue home Eliquis and statin as noted above. No BB with labile blood pressure. Follow-up with outpatient primary stereo compiler. Qualifiers: Coronary Disease-Associated Artery/Lesion type: unspecified vessel or lesion type [place] vs. transplanted heart: [place] heart Associated angina: with stable angina Qualified Code(s): I25.118 - Atherosclerotic heart disease of [place] coronary artery with other forms of angina pectoris (5) Takotsubo cardiomyopathy Priority: Secondary Status: Suspected Assessment and Plan: hx takotsubo cardiomyopathy, recovered now. TTE with EF 65%, normal systolic function. Euvolemic. Continue home ACEI at lower dose due to hypotension. (6) DVT (deep venous thrombosis) Priority: Secondary Status: Chronic Assessment and Plan: per hx. 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 Stool studies negative. resolved Qualifiers: Diarrhea type: unspecified type Qualified Code(s): R19.7 - Diarrhea, unspecified Hospital course: Please see assessment and plan for Hospital course Discharge discussed with: patient (Seen and examined at bedside. Patient is new to me, information obtained from chart review and patient report. Says she feels well, back to baseline. No further chest pain or shortness of breath. Says she has increased home stressors secondary to her son not working and having multiple medical additions for which he does not take care of. No CP or SOB on my exam) - Time Spent with Patient Total time spent providing and/or coordinating discharge services: - Discharge Medications Prescriptions: Lisinopril [Zestril] 20 mg PO DAILY #30 tablet Home Medications: Apixaban [Eliquis] 5 mg PO BID 01/16/18 [History] Atorvastatin Calcium [Lipitor] 20 mg PO HS 01/16/18 [History] Bimatoprost [Lumigan] 1 drop OP DAILY 01/16/18 [History] Buspirone HCl [Buspar] 15 mg PO TID 01/16/18 [History] Cyclosporine [Restasis] 1 drop OP BID 01/16/18 [History] Diphenoxylate/Atropine [Lomotil 2.5 mg/0.025 mg] 1 each PO TID 01/16/18 [History ] Fluticasone Propionate Nasal [Flonase] 100 mcg NS DAILY 01/16/18 [History] Loratadine [Allergy Relief] 10 mg PO DAILY 01/16/18 [History] Nitroglycerin [Nitrostat] 0.4 mg SL Q5M PRN 01/16/18 [History] [place]-3 Fatty Acids [Fish Oil] 1,200 mg PO DAILY 01/16/18 [History] Sertraline [Zoloft] 100 mg PO DAILY 01/16/18 [History] clonazePAM [Klonopin] 0.5 mg PO TID 01/16/18 [History] hydrOXYzine pamoate [HydrOXYzine Pamoate] 25 mg PO BID PRN 01/16/18 [History] hydroCHLOROthiazide [Hydrochlorothiazide] 25 mg PO DAILY 01/16/18 [History] metFORMIN [Glucophage] 500 mg PO BIDWM 01/16/18 [History] Omeprazole [PriLOSEC] 40 mg PO DAILY 01/17/18 [History] Lisinopril [Zestril] 20 mg PO DAILY #30 tablet 01/18/18 [Rx] Allergies/Adverse Reactions: 3 Allergy/AdvReac Type Severity Reaction Status Date / Time clonidine Allergy Swelling Verified 04/26/17 11:54 of Lip/Tongue/Throat citalopram [From Celexa] AdvReac Hypertensio Verified 04/26/17 11:54 n Date of admission: 01/16/18 22:05 Primary care physician: Ward Davis MD Discharging clinician: Andria Summers Anticipated date of discharge: 01/18/18 - Constitutional Vitals: Temp Pulse Resp BP Pulse Ox 97.4 F L 64 17 116/67 96 01/18/18 06:24 01/18/18 06:24 01/18/18 06:24 01/18/18 06:24 01/18/18 06:24 General appearance: Present: A&O X 3, no acute distress, answers questions appropriately - Head Head exam: Present: atraumatic, normocephalic - Eye Eye exam: Present: PERRL, conjuntiva pink, sclera anicteric Pupils: Present: PERRL - Neck Neck exam general surgery: Present: supple, trachea midline. Absent: lymphadenopathy - Respiratory Respiratory exam: Present: CTAB. Absent: accessory muscle use, rales, rhonchi, wheezes - Cardiovascular Cardiovascular exam: Present: RRR, +S1, +S2. Absent: diastolic murmur, gallop, rubs, systolic murmur - GI/Abdominal GI/Abdominal exam: Present: normal bowel sounds, soft, no peritoneal signs. Absent: distended, tenderness - Extremities Exam Extremities exam: Present: warm, radial pulses palpable and symmetrical. Absent : calf tenderness, cyanotic, pedal edema - Neurological Exam Neurological exam: Present: CN II-XII intact, oriented X3, no focal deficits. Absent: pronater drift, facial droop, speech deficit - Skin Skin exam: Present: dry, intact - Patient Status Disposition: Home, Self-Care Condition: Good Functional capacity at discharge: independent ambulation Overall status at discharge: patient is back to baseline - Discharge Instructions Instructions: Stress (DC), Chronic Hypertension (DC) Follow Up With: Ward Davis MD [Primary Care Provider] - (Please make an appt in 5-7 days for hospital follow-up) - Diet and Activity Activity: increase activity as tolerated Diet: diabetic diet, low fat, low cholesterol
[2018-01-18] MEDS: Fluticasone Propionate Nasal 50 MCG/SPRAY BOTTLE NS SCH (09:35)
[2018-01-18] MEDS: Loratadine 10 MG TABLET PO SCH (09:35)
[2018-01-18] MEDS: hydroCHLOROthiazide 25 MG TABLET PO SCH (09:35)
[2018-01-18] MEDS: clonazePAM 0.5 MG TABLET PO SCH (09:35)
[2018-01-18] MEDS: Lisinopril 20 MG TABLET PO SCH (09:35)
[2018-01-18] MEDS: Apixaban 5 MG TABLET PO SCH (09:35)
[2018-01-18] MEDS: (Cyclosporine [Restasis] 1 EACH) OP SCH (09:35)
[2018-01-18] MEDS: Latanoprost 2.5 ML BOTTLE BOTH EYES SCH (09:36)
--- NOTE | 2018-01-19 07:02 | Electrocardiograph Report ---
[address] [address] Test Date: 2018-01-16 Pat Name: Graciela Lopez Department: 103 Room: 3B36 Gender: F Resident Care Coordinator: [facility] : 1940 Requested By: Eddie Cook Order Number: [id number] Reading MD: Toñito Montes Measurements Intervals [place] Rate: 90 P: 78 PA: 175 QRS: 15 QRSD: 97 T: 72 QT: 349 QTc: 397 Interpretive Statements SINUS RHYTHM MINIMAL VOLTAGE CRITERIA FOR LVH, CONSIDER NORMAL VARIANT BASELINE ARTIFACT Electronically Signed On 01-19-2018 7:01:18 EDT by Toñito Montes
--- NOTE | 2018-01-19 07:05 | Electrocardiograph Report ---
[address] [place] [address] Test Date: 2018-01-17 Pat Name: Graciela Lopez Department: 113 Room: 3B36 Gender: F Cremator: : 1940 Requested By: Dae Deutsch Order Number: [id number] Reading MD: Toñito Montes Measurements Intervals [place] Rate: 73 P: 67 [place]: 200 QRS: 16 QRSD: 94 T: 59 QT: 411 QTc: 436 Interpretive Statements SINUS RHYTHM Electronically Signed On 01-19-2018 7:03:39 EDT by Toñito Montes
== END 2018-01-18 11:25 | disposition home or self-care (01) ==
LOC: 3BNU 19:12 → EMEROO 19:12 → 3BNU 22:18
PROVIDERS: ADMIT Internal Medicine; ATTEND Internal Medicine

== ENCOUNTER 2018-03-24 16:23 | Inpatient (IN) ==
--- NOTE | 2018-03-24 16:57 | Emergency Department Note ---
Disposition Clinical Impression: Fall (on) (from) other stairs and steps, initial encounter, Hypernatremia, Hypocalcemia Disposition: Admitted As Inpatient Condition: Good General Adult HPI - General Chief complaint: ED Fall Stated complaint: Fall on blood thinner Time Seen by Provider: 03/24/18 16:51 Source: patient Limitations: no limitations - History of Present Illness Pain Scale: 9 - Related Data Home Medications Medication Instructions Recorded Confirmed Apixaban [Eliquis] 5 mg PO BID 01/16/18 03/24/18 Atorvastatin Calcium [Lipitor] 20 mg PO HS 01/16/18 03/24/18 Bimatoprost [Lumigan] 1 drop OP DAILY 01/16/18 03/24/18 Buspirone HCl [Buspar] 15 mg PO TID 01/16/18 03/24/18 Cyclosporine [Restasis] 1 drop OP BID 01/16/18 03/24/18 Diphenoxylate/Atropine [Lomotil 1 tab PO TID 01/16/18 03/24/18 2.5 mg/0.025 mg] Fluticasone Propionate Nasal 1 spr NS DAILY 01/16/18 03/24/18 [Flonase] Loratadine [Allergy Relief] 10 mg PO DAILY 01/16/18 03/24/18 Nitroglycerin [Nitrostat] 0.4 mg SL Q5M PRN 01/16/18 03/24/18 [place]-3 Fatty Acids [Fish Oil] 1,200 mg PO DAILY 01/16/18 03/24/18 Sertraline [Zoloft] 100 mg PO DAILY 01/16/18 03/24/18 clonazePAM [Klonopin] 0.5 mg PO TID 01/16/18 03/24/18 hydrOXYzine pamoate [HydrOXYzine 25 mg PO BID PRN 01/16/18 03/24/18 Pamoate] hydroCHLOROthiazide 25 mg PO DAILY 01/16/18 03/24/18 [Hydrochlorothiazide] metFORMIN [Glucophage] 500 mg PO BIDWM 01/16/18 03/24/18 Omeprazole [PriLOSEC] 40 mg PO DAILY 01/17/18 03/24/18 Previous Rx's Medication Instructions Recorded Lisinopril [Zestril] 20 mg PO DAILY #30 tablet 01/18/18 Allergies Allergy/AdvReac Type Severity Reaction Status Date / Time clonidine Allergy Swelling Verified 03/24/18 19:37 of Lip/Tongue/Throat citalopram [From Celexa] AdvReac Hypertensio Verified 03/24/18 19:37 n Past Medical History - Past Medical History Medical history: Reports: DVT, diabetes, hypertension, other Surgical history: Reports: non-contributory, carotid endarterectomy, cataract, hysterectomy, splenectomy, other Psychiatric history: Reports: anxiety, depression ASSISTANT ACCOUNTING MANAGER history: Reports: no ASSISTANT ACCOUNTING MANAGER history - Social History Smoking Status: Former smoker Smokeless Tobacco Status: No Alcohol use: Reports: none Drug use: Reports: none Physical Exam - General Limitations: no limitations General appearance: alert, in no apparent distress Course Vital Signs Temperature 98 F 03/24/18 16:25 Pulse Rate 85 03/24/18 16:25 Respiratory Rate 18 03/24/18 16:25 Blood Pressure 117/64 03/24/18 16:25 O2 Sat by Pulse Oximetry 95 03/24/18 16:25 Temperature 97.9 F 03/25/18 15:33 Pulse Rate 82 03/25/18 15:33 Respiratory Rate 15 03/25/18 15:33 Blood Pressure 116/61 03/25/18 15:33 O2 Sat by Pulse Oximetry 96 03/25/18 15:33 Oxygen Delivery Oxygen Delivery Room Air Medical Decision Making - Lab Data Result diagrams: 03/25/18 04:32 03/25/18 04:32 Lab Results 03/24/18 Range/Units 17:04 Sodium 156 H (136-145) mEq/L Potassium 3.5 (3.5-5.1) mEq/L Chloride 84 L (98-107) mEq/L Carbon Dioxide 25 (23-29) mEq/L BUN 14 (8-23) mg/dL Creatinine 0.50 L (0.60-1.20) mg/dL Est GFR ( Amer) > 60 (> 60) Est GFR (Non-Af Amer) > 60 (> 60) BUN/Creatinine Ratio 28 H (6-26) Glucose 155 H (70-105) mg/dL Calculated Osmolality 326 H (280-300) Calcium 6.6 L (8.6-10.3) mg/dL Attestation Statement - Attestation Attestation: I examined this patient and my medical decision-making was reviewed with the Resident Physician. I agree with the documented findings, disposition and treatment plan as described except to the extent set forth below. [id number] time provided Patient arrives after mechanical fall complaining of bilateral knee pain, right shoulder pain, right hip pain, low back pain. She presents to the treatment area in a wheelchair. She was evaluated in conjunction with the resident physician Dr. Servin
[2018-03-24] MEDS ORDERED: Isovue-370 500 ML INFUS..BTL IV ONE (17:06)
--- NOTE | 2018-03-24 17:09 | Emergency Department Note ---
Disposition Clinical Impression: Fall (on) (from) other stairs and steps, initial encounter, Hypernatremia, Hypocalcemia Disposition: Admitted As Inpatient Condition: Good Time of Disposition: 20:22 Fall HPI - General Chief Complaint: ED Fall Stated Complaint: Fall on blood thinner Time Seen by Provider: 03/24/18 16:51 Source: patient Mode of arrival: private vehicle Limitations: no limitations Nursing Notes Reviewed: Yes Vital Signs Reviewed: Yes - History of Present Illness HPI Narrative: 77 y/o female presents after fall. States she was going down the steps when she missed the last one. She fell without hitting her head, but has pain in bilateral elbows, knees, hips, and right shoulder. She notes abd pain in RLQ and LLQ. She denies dizziness, lightheadedness, syncope, sob, cp, n/v, LOC. She is on eliquis and is concerned about bleeding in her abdomen. No obvious dislocations, eccymosis or erythema. All joints have ROM, although it causes pain. There is a small abrasion anterolaterally on right knee. Both knees have effusion she states is there chronically secondary to arthritis. - Related Data Home Medications Medication Instructions Recorded Confirmed Apixaban [Eliquis] 5 mg PO BID 01/16/18 01/17/18 Atorvastatin Calcium [Lipitor] 20 mg PO HS 01/16/18 01/17/18 Bimatoprost [Lumigan] 1 drop OP DAILY 01/16/18 01/17/18 Buspirone HCl [Buspar] 15 mg PO TID 01/16/18 01/17/18 Cyclosporine [Restasis] 1 drop OP BID 01/16/18 01/17/18 Diphenoxylate/Atropine [Lomotil 1 each PO TID 01/16/18 01/17/18 2.5 mg/0.025 mg] Fluticasone Propionate Nasal 100 mcg NS DAILY 01/16/18 01/17/18 [Flonase] Loratadine [Allergy Relief] 10 mg PO DAILY 01/16/18 01/17/18 Nitroglycerin [Nitrostat] 0.4 mg SL Q5M PRN 01/16/18 01/17/18 [place]-3 Fatty Acids [Fish Oil] 1,200 mg PO DAILY 01/16/18 01/17/18 Sertraline [Zoloft] 100 mg PO DAILY 01/16/18 01/17/18 clonazePAM [Klonopin] 0.5 mg PO TID 01/16/18 01/17/18 hydrOXYzine pamoate [HydrOXYzine 25 mg PO BID PRN 01/16/18 01/17/18 Pamoate] hydroCHLOROthiazide 25 mg PO DAILY 01/16/18 01/17/18 [Hydrochlorothiazide] metFORMIN [Glucophage] 500 mg PO BIDWM 01/16/18 01/17/18 Omeprazole [PriLOSEC] 40 mg PO DAILY 01/17/18 01/17/18 Previous Rx's Medication Instructions Recorded Lisinopril [Zestril] 20 mg PO DAILY #30 tablet 01/18/18 Allergies Allergy/AdvReac Type Severity Reaction Status Date / Time clonidine Allergy Swelling Verified 03/24/18 19:37 of Lip/Tongue/Throat citalopram [From Celexa] AdvReac Hypertensio Verified 03/24/18 19:37 n All systems ED: reviewed and negative except as stated. Fall PMH - Past Medical History Medical history: Reports: DVT, diabetes, hypertension, other Surgical history: Reports: non-contributory, carotid endarterectomy, cataract, hysterectomy, splenectomy, other Psychiatric history: Reports: anxiety, depression CONFIGURATION MANAGEMENT ARCHITECT history: Reports: no CONFIGURATION MANAGEMENT ARCHITECT history - Social History Smoking Status: Former smoker Alcohol use: Reports: none Drug use: Reports: none Physical Exam - General Limitations: no limitations General appearance: alert, in no apparent distress - Head Head exam: atraumatic, normocephalic, normal inspection - Eye Eye exam: Present: normal appearance, PERRL, EOMI - ENT ENT exam: mucous membranes moist - Neck Neck exam: Present: normal inspection, full ROM, trachea midline - Chest Chest inspection: Present: normal inspection, symmetric chest wall rise - Respiratory Respiratory exam: Present: normal lung sounds bilaterally - Cardiovascular Cardiovascular exam: Present: regular rate, normal rhythm, normal heart sounds - Abdominal Exam Abdominal exam: Present: soft, tenderness, normal bowel sounds. Absent: distention, guarding, rebound, rigidity Abdominal tenderness: Present: RLQ, LLQ - Expanded Upper Extremity Exam Shoulder exam: Present: normal inspection, full ROM, tenderness. Absent: swelling, abrasion, ecchymosis, deformity, dislocation, erythema Elbow exam: Present: normal inspection, full ROM, tenderness. Absent: swelling , abrasion, ecchymosis, deformity, dislocation, erythema Vascular exam: Normal: radial pulse - Expanded Lower Extremity Exam Hip/Pelvis exam: Present: normal inspection, full ROM, tenderness, pelvis stable. Absent: swelling, abrasion, ecchymosis, deformity, erythema, shortening Knee exam: Present: full ROM, tenderness, swelling, abrasion (right anterolateral knee), effusion, knee extension intact. Absent: ecchymosis, deformity, dislocation, erythema Neurovascular/Tendon exam: Present: normal capillary refill. Absent: pulse deficit, sensory deficit Gait: observed and limited by pain - Neurological Exam Neurological exam: Present: alert, oriented X3 - Psychiatric Psychiatric exam: Present: normal affect, normal mood - Skin Skin exam: Present: warm, dry, intact, normal color Course Course Narrative: 77 y/o female presents after fall. States she was going down the steps when she missed the last one. She fell without hitting her head, but has pain in bilateral elbows, knees, hips, and right shoulder. She notes abd pain in RLQ and LLQ. She denies dizziness, lightheadedness, syncope, sob, cp, n/v, LOC. She is on eliquis and is concerned about bleeding in her abdomen. No obvious dislocations, eccymosis or erythema. All joints have ROM, although it causes pain. There is a small abrasion anterolaterally on right knee. Both knees have effusion she states is there chronically secondary to arthritis. Will get XR of right shoulder, elbow, b/l knees and hips along with CT/abd pelvis as pt is concerned over bleed. - Reevaluation(s) Reevaluation #1: Discussed XR and lab results with pt. Discussed admission, pt agreeable. Pt is resting comfortably and eating dinner at this time. Time: 19:31 - Consultations Consultation #1: Discussed the case with Dr. Black with the hospitalist Service who has accepted the patient for admission. Time: 19:30 Vital Signs Temperature 98 F 03/24/18 16:25 Pulse Rate 85 03/24/18 16:25 Respiratory Rate 18 03/24/18 16:25 Blood Pressure 117/64 03/24/18 16:25 O2 Sat by Pulse Oximetry 95 03/24/18 16:25 Temperature 98 F 03/24/18 16:25 Pulse Rate 78 08/02/18 19:43 Respiratory Rate 16 03/24/18 19:43 Blood Pressure 165/80 03/24/18 19:43 O2 Sat by Pulse Oximetry 97 03/24/18 19:43 Oxygen Delivery Oxygen Delivery Room Air Fall - [facility] Narrative Medical decision making narrative: 77 y/o female presents after fall. States she was going down the steps when she missed the last one. She fell without hitting her head, but has pain in bilateral elbows, knees, hips, and right shoulder. She notes abd pain in RLQ and LLQ. No obvious dislocations, eccymosis or erythema. All joints have ROM, although it causes pain. There is a small abrasion anterolaterally on right knee. Both knees have effusion she states is there chronically secondary to arthritis. Will get XR of elbow, b/l knees and hips along with CT/abd pelvis as pt is concerned over bleed and has LLQ/RLQ pain. XR show effusion of left knee and possible lesion near greater trochanter that could represent paget's disease. BMP obtained to check SCr shows NA of 156 and Ca 6.6. will give 1L LR and 2G calcium gluconate. Etiology of electrolyte abnormalities unclear, pt has not been eating well lately since she is grieving the loss of her son and could be secondary to dehydration. Will admit pt to hospitalist service for electrolyte monitoring and to finish her IVF. - Differential Diagnosis Likely: traumatic injury - Medical Records Medical records reviewed: Yes I reviewed the patient's medical records. - Lab Data Lab results reviewed: Yes I reviewed the patient's lab results. Result diagrams: 03/24/18 17:04 Lab Results 03/24/18 Range/Units 17:04 Sodium 156 H (136-145) mEq/L Potassium 3.5 (3.5-5.1) mEq/L Chloride 84 L (98-107) mEq/L Carbon Dioxide 25 (23-29) mEq/L BUN 14 (8-23) mg/dL Creatinine 0.50 L (0.60-1.20) mg/dL Est GFR ( Amer) > 60 (> 60) Est GFR (Non-Af Amer) > 60 (> 60) BUN/Creatinine Ratio 28 H (6-26) Glucose 155 H (70-105) mg/dL Calculated Osmolality 326 H (280-300) Calcium 6.6 L (8.6-10.3) mg/dL - Radiology Data Radiology results reviewed: Yes I reviewed the patient's radiology results. Elbow X-Ray 03/24/18 17:04 IMPRESSION: No acute fracture detected. Mild left-sided suprapatellar effusion. Deformity of the partially visualized left femoral shaft which may be related to remote fracture. D/ / Vincent Hernandez MD / Vincent Hernandez MD Interpreting Provider: Vincent Hernandez MD Hip/Pelvis X-Ray 03/24/18 17:04 IMPRESSION: No acute fracture detected. Mild left-sided suprapatellar effusion. Deformity of the partially visualized left femoral shaft which may be related to remote fracture. D/ / Vincent Hernandez MD / Vincent Hernandez MD Interpreting Provider: Vincent Hernandez MD Knee X-Ray 03/24/18 17:04 IMPRESSION: No acute fracture detected. Mild left-sided suprapatellar effusion. Deformity of the partially visualized left femoral shaft which may be related to remote fracture. D/ / Vincent Hernandez MD / Vincent Hernandez MD Interpreting Provider: Vincent Hernandez MD Abdomen/Pelvis CT 03/24/18 17:06 IMPRESSION: No acute abnormalities in the abdomen or pelvis. No acute bowel abnormality. 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 D/ / 03/24/2018 19:06:18 Francesca Scott MD / caleb Interpreting Provider: Francesca Scott MD
[2018-03-24 17:51] LABS: BUN/Creatinine Ratio 28 (6-26); Blood Urea Nitrogen 14 mg/dL (8-23); Calcium 6.6 mg/dL (8.6-10.3); Carbon Dioxide 25 mEq/L (23-29); Chloride 84 mEq/L (98-107); Glucose 155 mg/dL (70-105); Osmolality,Calculated 326 (280-300); Potassium 3.5 mEq/L (3.5-5.1); Sodium 156 mEq/L (136-145); eGFR For Non-African Americans > 60 (> 60)
[2018-03-24] MEDS ORDERED: Ringers Solution, Lactated 1,000 ML IVC ONE (18:00)
[2018-03-24] MEDS ORDERED: Calcium Gluconate 2,000 MG in 0.9 % Sodium Chloride 100 ML IVPB ONE (18:03)
[2018-03-24] MEDS ORDERED: Naloxone 0.4 MG/ML INJ IVP PRN (20:05)
[2018-03-24] MEDS ORDERED: hydrOXYzine pamoate 25 MG CAPSULE PO PRN (20:07)
[2018-03-24] MEDS ORDERED: *HR* Dextrose 50 % in Water (Syg) 50 ML SYRINGE IVP PRN (20:11)
[2018-03-24] MEDS ORDERED: D5% in Water 1,000 ML IVC PRN (20:11)
[2018-03-24] MEDS ORDERED: Dextrose Gel 15 GM/37.5 ML TUBE PO PRN ×2 (20:11)
[2018-03-24] MEDS ORDERED: Diphenoxylate/Atropine 1 TAB TABLET PO PRN (21:00)
[2018-03-24] MEDS: (Cyclosporine [Restasis] 1 DROP) OP SCH (21:37)
[2018-03-24] MEDS: Apixaban 5 MG TABLET PO SCH (21:38)
--- NOTE | 2018-03-24 21:38 | Internal Med History&Physical ---
Date of Encounter: 03/24/18 Time of Encounter: 21:30 Internal Medicine - H&P: HPI Chief complaint: s/p fall at home with elbow abrasions History of present illness: Ms. Lopez is a 77 year old female with pmh of diabetes , DVT, hypertension presenting s/p fall today. Patient notes she was descending down a flight of stairs at home, when she missed the last stair case and fell on her arms and knees without hitting her head. She suffered a small abrasion on her right knee and called her PCP who advised her to come to the ER. She denies any dizziness, lightheadedness, fevers or any other acute symptoms prior to fall. She does note that her son about a week ago and she has been very depresssed and had a loss of appetite. In ER, imaging was negative for any acute fractures. She was however noted to be hypernatremic at 156 and hypocalcemic at 6.6. She received IV fluids and calcium gluconate in the ER Past Med Surg Social Fam HX - Past Medical History Medical history: DVT, diabetes, hypertension, other Additional medical history: kidney disease. Psychiatric history: anxiety, depression - Past Surgical History Surgical History: non-contributory, carotid endarterectomy, cataract, hysterectomy, splenectomy, other Additional surgical history: heart cath - Social History Smoking Status: Former smoker Smokeless Tobacco Status: No Alcohol use: none Drug use: none - Family History Mother Adopted: No Family Member Ethnicity: Non- Living Status: Hx Family Cardiac Disorders: Yes (HTN) Hx Family Respiratory Disorders: No Hx Family Cancer: No Hx Family GI Disorders: No Hx Family Endocrine Disorder: No Hx Family Neuromuscular Disorders: Yes (CVA) Hx Family Neurologic Disorders: Yes (stroke) Hx Family HEENT Disorders: No Hx Family Autoimmune Disorders: No Father Family Member Ethnicity: Non- Living Status: Hx Family Cardiac Disorders: Yes (heartfailure) Maternal Adopted: No Family Member Ethnicity: Non- Living Status: Hx Family Cardiac Disorders: Yes (HTN) Hx Family Respiratory Disorders: No Hx Family Cancer: No Hx Family GI Disorders: No Hx Family Endocrine Disorder: No Hx Family Neuromuscular Disorders: No Hx Family Neurologic Disorders: Yes (CVA) Hx Family HEENT Disorders: No Hx Family Autoimmune Disorders: No Internal Medicine - H&P: Meds Apixaban [Eliquis] 5 mg PO BID 01/16/18 [History] Atorvastatin Calcium [Lipitor] 20 mg PO HS 01/16/18 [History] Bimatoprost [Lumigan] 1 drop OP DAILY 01/16/18 [History] Buspirone HCl [Buspar] 15 mg PO TID 01/16/18 [History] Cyclosporine [Restasis] 1 drop OP BID 01/16/18 [History] Diphenoxylate/Atropine [Lomotil 2.5 mg/0.025 mg] 1 tab PO TID 01/16/18 [History] Fluticasone Propionate Nasal [Flonase] 1 spr NS DAILY 01/16/18 [History] Loratadine [Allergy Relief] 10 mg PO DAILY 01/16/18 [History] Nitroglycerin [Nitrostat] 0.4 mg SL Q5M PRN 01/16/18 [History] [place]-3 Fatty Acids [Fish Oil] 1,200 mg PO DAILY 01/16/18 [History] Sertraline [Zoloft] 100 mg PO DAILY 01/16/18 [History] clonazePAM [Klonopin] 0.5 mg PO TID 01/16/18 [History] hydrOXYzine pamoate [HydrOXYzine Pamoate] 25 mg PO BID PRN 01/16/18 [History] hydroCHLOROthiazide [Hydrochlorothiazide] 25 mg PO DAILY 01/16/18 [History] metFORMIN [Glucophage] 500 mg PO BIDWM 01/16/18 [History] Omeprazole [PriLOSEC] 40 mg PO DAILY 01/17/18 [History] Lisinopril [Zestril] 20 mg PO DAILY #30 tablet 01/18/18 [Rx] 3 Allergy/AdvReac Type Severity Reaction Status Date / Time clonidine Allergy Swelling Verified 03/24/18 19:37 of Lip/Tongue/Throat citalopram [From Celexa] AdvReac Hypertensio Verified 03/24/18 19:37 n All Systems PM: A 10-system review of systems was performed and is negative for pertinent findings except as documented above in the HPI. - Constitutional Constitutional: no chills, no fever(s), no night sweats - EENT Eyes: no change in vision, no discharge, no pain, no photophobia Ears: no ear discharge, no ear pain, no tinnitus Nose, mouth and throat: no dysphagia, no nasal discharge, no neck pain, no sore throat - Cardiovascular Cardiovascular ROS IM: no chest pain, no diaphoresis, no dyspnea, no lightheadedness, no palpitations, no syncope - Respiratory Respiratory: no cough, no dyspnea, no wheezing, no excessive phlegm production - Gastrointestinal Gastrointestinal: no abdominal pain, no diarrhea, no hematemesis, no hematochezia, no melena, no nausea, no vomiting - Genitourinary Genitourinary: no change in urinary stream, no dysuria, no flank pain, no hematuria - Musculoskeletal Musculoskeletal ROS IM: joint swelling, no numbness, no tingling - Integumentary Integumentary IM: no rash, no unusual bruising - Neurological Neurological ROS: no confusion, no convulsions, no focal weakness, no numbness, no tingling, no tremor(s) - Hematologic/Lymphatic Hematologic/Lymphatic: no easy bruising - Constitutional Vitals: Temp Pulse Resp BP Pulse Ox 97.8 F 98 16 187/75 94 03/24/18 21:05 03/24/18 21:05 03/24/18 21:05 03/24/18 21:05 03/24/18 21:05 - Head Head exam: Present: atraumatic, normocephalic - Eye Eye exam: Present: PERRL, conjuntiva pink, sclera anicteric Pupils: Present: PERRL - Neck Neck exam general surgery: Present: supple, trachea midline. Absent: lymphadenopathy - Respiratory Respiratory exam: Present: CTAB. Absent: accessory muscle use, rales, rhonchi, wheezes - Cardiovascular Cardiovascular exam: Present: RRR, +S1, +S2. Absent: diastolic murmur, gallop, rubs, systolic murmur - GI/Abdominal GI/Abdominal exam: Present: normal bowel sounds, soft, no peritoneal signs. Absent: distended, tenderness - Extremities Exam Extremities exam: Present: warm, radial pulses palpable and symmetrical. Absent : calf tenderness, cyanotic, pedal edema Additional comments: right knee abrasion - Neurological Exam Neurological exam: Present: CN II-XII intact, oriented X3, no focal deficits. Absent: pronater drift, facial droop, speech deficit - Skin Skin exam: Present: dry, intact Internal Med - H&P Results - Labs CBC & Chem 7: 03/24/18 21:38 03/24/18 17:04 - Assessment and plan (1) Hypernatremia Current Visit: Yes Status: Acute Assessment and plan: Acute hypernatremia. Likely secondary to dehydration. Started on IV fluids with D5 1/2NS. Monitor sodium levels (2) Hypocalcemia Current Visit: Yes Status: Acute Assessment and plan: Unclear etiology. Obtain CMP with albumin levels. Received 2g of calcium gluconate in the ER. Repeat calcium levels. (3) Fall (on) (from) other stairs and steps, initial encounter Current Visit: Yes Status: Acute Assessment and plan: s/p fall with knee abrasion. Physical therapy. Pain control PRN (4) Hypertension Current Visit: Yes Status: Acute Assessment and plan: Resume home meds Qualifiers: Hypertension type: essential hypertension Qualified Code(s): I10 - Essential (primary) hypertension (5) DVT (deep venous thrombosis) Current Visit: No Status: Chronic Assessment and plan: Has hx of bilateral DVTS. 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 No acute intervention. Outpatient follow up (8) DVT prophylaxis Current Visit: Yes Status: Acute Assessment and plan: on eliquis - Time Spent With Patient Total time spent is greater than 50% in coordination of care (as documented) at patient's floor/unit and/or counseling patient:
[2018-03-24] MEDS ORDERED: Acetaminophen 325 MG TABLET PO PRN (21:43)
[2018-03-24 21:47] LABS: Basophils % 0.4 %; Eosinophils # 0.4 K/mcL (0.0-0.6); Eosinophils % 5.2 %; Hematocrit 33.7 % (35.3-44.9); Hemoglobin 11.7 g/dL (11.5-15.4); Immature Granulocytes % 0.3 % (0-4); Lymphocytes # 1.5 K/mcL (0.6-4.6); Lymphocytes % 21.5 %; Mean Corpuscular HGB Conc 34.7 g/dL (31.6-35.5); Mean Corpuscular Hemoglobin 34.2 pg (28.0-33.3); Mean Corpuscular Volume 98.5 fL (83.0-100.0); Monocytes # 0.5 K/mcL (0.0-1.3); Monocytes % 7.4 %; Neutrophils # 4.6 K/mcL (1.6-8.9); Platelet Count 212 K/mcL (140-400); Red Blood Count 3.42 M/mcL (3.82-4.97); Red Cell Distribution Width 12.7 % (11.5-14.5); Segmented Neutrophils % 65.2 %
[2018-03-24] MEDS: clonazePAM 0.5 MG TABLET PO SCH (21:53)
[2018-03-24 22:03] LABS: Estimated Average Glucose 140 mg/dl; Hemoglobin A1C 6.5 %
[2018-03-24] MEDS: traMADol 50 MG TABLET PO PRN (22:07)
[2018-03-24] MEDS: Insulin LISPRO 300 UNITS/3 ML VIAL SQ SCH (22:07)
[2018-03-24 22:16] LABS: Alanine Aminotransferase 13 Units/L (7-52); Albumin 3.9 g/dL (3.5-5.7); Albumin/Globulin Ratio 2.4 (1.1-2.2); Alkaline Phosphatase 25 Units/L (34-104); Aspartate Amino Transferase 14 Units/L (13-39); BUN/Creatinine Ratio 22 (6-26); Bilirubin,Total 0.3 mg/dL (0.3-1.0); Blood Urea Nitrogen 14 mg/dL (8-23); Calcium 9.5 mg/dL (8.6-10.3); Carbon Dioxide 32 mEq/L (23-29); Chloride 98 mEq/L (98-107); Globulin 1.6 g/dL (2.4-3.5); Glucose 225 mg/dL (70-105); Osmolality,Calculated 294 (280-300); Potassium 3.7 mEq/L (3.5-5.1); Sodium 138 mEq/L (136-145); Total Protein 5.5 g/dL (6.4-8.9); eGFR For Non-African Americans > 60 (> 60)
[2018-03-25] MEDS: *HR* HYDROcodone/Acet 5/325 mg TABLET PO PRN ×3 (01:22→21:03)
[2018-03-25 05:06] LABS: Basophils % 0.5 %; Eosinophils # 0.2 K/mcL (0.0-0.6); Eosinophils % 3.8 %; Hematocrit 30.3 % (35.3-44.9); Immature Granulocytes % 0.3 % (0-4); Lymphocytes # 1.1 K/mcL (0.6-4.6); Lymphocytes % 17.7 %; Mean Corpuscular HGB Conc 33.3 g/dL (31.6-35.5); Mean Corpuscular Hemoglobin 32.2 pg (28.0-33.3); Mean Corpuscular Volume 96.5 fL (83.0-100.0); Mean Platelet Volume 10.4 fL (9.4-12.4); Monocytes # 0.7 K/mcL (0.0-1.3); Monocytes % 10.8 %; Neutrophils # 4.2 K/mcL (1.6-8.9); Platelet Count 212 K/mcL (140-400); Red Blood Count 3.14 M/mcL (3.82-4.97); Red Cell Distribution Width 12.8 % (11.5-14.5); Segmented Neutrophils % 66.9 %
[2018-03-25 05:11] LABS: Hemoglobin 10.1 g/dL (11.5-15.4)
[2018-03-25 05:26] LABS: Alanine Aminotransferase 11 Units/L (7-52); Albumin 3.5 g/dL (3.5-5.7); Albumin/Globulin Ratio 2.3 (1.1-2.2); Alkaline Phosphatase 21 Units/L (34-104); Aspartate Amino Transferase 12 Units/L (13-39); BUN/Creatinine Ratio 25 (6-26); Bilirubin,Total 0.3 mg/dL (0.3-1.0); Blood Urea Nitrogen 14 mg/dL (8-23); Calcium 8.6 mg/dL (8.6-10.3); Carbon Dioxide 30 mEq/L (23-29); Chloride 101 mEq/L (98-107); Globulin 1.5 g/dL (2.4-3.5); Glucose 125 mg/dL (70-105); Osmolality,Calculated 286 (280-300); Potassium 3.7 mEq/L (3.5-5.1); Sodium 137 mEq/L (136-145); eGFR For Non-African Americans > 60 (> 60)
[2018-03-25] MEDS: clonazePAM 0.5 MG TABLET PO SCH ×3 (07:50→21:04)
[2018-03-25] MEDS: Apixaban 5 MG TABLET PO SCH ×2 (07:50→21:03)
[2018-03-25] MEDS: Lisinopril 20 MG TABLET PO SCH (07:50)
[2018-03-25] MEDS: Insulin LISPRO 300 UNITS/3 ML VIAL SQ SCH ×3 (07:52→16:35)
[2018-03-25] MEDS: Fluticasone Propionate Nasal 50 MCG/SPRAY BOTTLE NS SCH (08:55)
[2018-03-25] MEDS: 0.45 % Sodium Chloride 250 ML IVC SCH ×2 (10:15→16:54)
[2018-03-25] MEDS: traMADol 50 MG TABLET PO PRN (10:39)
[2018-03-25] MEDS: (Cyclosporine [Restasis] 1 DROP) OP SCH ×2 (12:22→21:00)
--- NOTE | 2018-03-25 17:01 | Internal Med Progress Note ---
Hospitalist Progress Note - Encounter Date of Encounter: 03/25/18 Time of Encounter: 11:00 - Subjective Interval History: Patient was seen and assessed at bedside at 11:00 AM. She is alert, awake, daughter is at bedside. Patient is coherent and able to make decisions. Patient reports bilateral leg pain, tender to palpation bilaterally. Patient reports that her son recently and she has not been doing well. She reports that she is not eating and drinking well at home. She states that she feels like she is depressed. She states that she feels weak and tired. She denies headache or blurred vision, she reports some intermittent nausea, no vomiting or diarrhea no abdominal pain. She denies chest pain or shortness of breath, no dizziness. - Exam Vitals: Temp Pulse Resp BP Pulse Ox 97.9 F 82 15 116/61 96 03/25/18 15:33 03/25/18 15:33 03/25/18 15:33 03/25/18 15:33 03/25/18 15:33 Exam: General: Pt resting quietly on bed, no distress. Skin: pwd, no rashes, lesions, redness, patient appears to be slightly pale Neurological: Pt is alert and awake, oriented x 3, Speech is clear, PERRLA, EOMI , no nystagmus, no pronator drift. strength equal x 4 extremities, strength is weak. HEENT: mucous mumbranes moist, no conjuctival pallor Neck: supple, no tracheal deviation, no lymphadenopathy, tenderness, no thyromegaly Heart: S1S2 heard without gallops, clicks, murmurs, no bradycardia or tachycardia, pt has no peripheral edema, pedal and radial pulses palpable bilaterally. Lungs: clear and diminished throughout without wheezing, rales, or ronchi, respirations are unlabored Abdomen: soft and non tender with bowel sound present, no hepatomegaly. Psych: Normal affect with good eye contact - Assessment and Plan (1) Diabetes mellitus Current Visit: Yes Status: Chronic Assessment and Plan: A1c is 6.5%. Patient states she has had weight loss recently due to poor oral intake, depression, failure to thrive. Signing scale insulin, Accu-Cheks before meals and at bedtime, diabetic diet. (2) DVT (deep venous thrombosis) Current Visit: Yes Status: Chronic Assessment and Plan: Patient is on Eliquis. (3) Fall (on) (from) other stairs and steps, initial encounter Current Visit: Yes Status: Acute Assessment and Plan: Fall at home. Mechanical. Patient states that she tripped. Patient with right shoulder pain, right hip, low back, bilateral knee pain. X-rays negative for fracture, possible small effusion in left knee. Monitor for falls and safety. PT while in the hospital, patient is going to be discharged to SNF for rehabilitation Continue pain control. (4) Hypocalcemia Current Visit: Yes Status: Acute Assessment and Plan: Unclear etiology. Obtain CMP with albumin levels. Received 2g of calcium gluconate in the ER. Repeat calcium levels. /-Zoloft. 8.6 calcium this morning. Continue to monitor. (5) Hypernatremia Current Visit: Yes Status: Acute Assessment and Plan: Likely secondary to dehydration. Patient reports recent poor oral intake of food and fluid. Patient has been started on IV fluids D5 half-normal saline. Continue to monitor. (6) Hypertension Current Visit: Yes Status: Acute Assessment and Plan: Controlled. Continue current medications. Patient had hypotension this morning, responded well to IV fluid bolus. (7) Knee effusion, left Current Visit: Yes Status: Acute Assessment and Plan: Mild left sided suprapatellar effusion on knee xray. No acute intervention. Outpatient follow up (8) DVT prophylaxis Current Visit: Yes Status: Acute Assessment and Plan: on eliquis (9) Failure to thrive in adult Current Visit: Yes Status: Acute Assessment and Plan: Patient reports recently and her son . He lived with her for multiple years, and reports caring for him at home in the months preceding his . She also reports that her other son who lives out of state is now in a intermediate due to multiple strokes. Patient states that she is not eating well, he has decreased activity, not continued fluid. She reports that when she is she is not going to her upstairs or basement because of weakness and deconditioning. Patient is well known to me, she has lost weight and states that she normally eats one meal a day does not cook anymore. PT/OT have recommended patient go to SNF for rehabilitation after discharge. Patient and daughter are agreeable and patient will be discharged on Wednesday. (10) Weight loss Current Visit: Yes Status: Acute Assessment and Plan: Patient reports recent weight loss of unknown amount due to loss of son, feeling depressed, failure to thrive. Patient reports that she only eats one meal a day and that she does not cook anymore at home. Nutrition has been consulted. (11) Generalized weakness Current Visit: Yes Status: Acute Assessment and Plan: Likely due to depression, decreased activity, weight loss, FTT. PT/OT recommends SNF for rehab, pt and daughter are agreeable. Pt will be discharged on Wednesday when bed is ready. (12) Hypomagnesemia Current Visit: Yes Status: Acute Assessment and Plan: Unclear etiology. Likely due to poor by mouth intake and dehydration. Patient was given 2 g of mag sulfate this morning, we will redraw labs, will replete as needed. - Time Spent with Patient Total time spent is greater than 50% in coordination of care (as documented) at patient's floor/unit and/or counseling patient: less than 15 minutes Plan of Care Discussed with: patient Internal Medicine: Result - Labs CBC & Chem 7: 03/25/18 04:32 03/25/18 04:32 Labs: Short CBC 03/24/18 03/25/18 Range/Units 21:38 04:32 WBC 7.1 6.3 (4.3-11.1) K/mcL Hgb 11.7 10.1 L D (11.5-15.4) g/dL Hct 33.7 L 30.3 L (35.3-44.9) % Plt Count 212 212 (140-400) K/mcL Neutrophils # 4.6 4.2 (1.6-8.9) K/mcL BMP 03/24/18 03/25/18 21:36 04:32 Sodium 138 D 137 Potassium 3.7 3.7 Chloride 98 101 Carbon Dioxide 32 H 30 H BUN 14 14 Creatinine 0.63 0.55 L Glucose 225 H 125 H Calcium 9.5 8.6 Liver Function 03/24/18 03/25/18 Range/Units 21:36 04:32 Total Bilirubin 0.3 0.3 (0.3-1.0) mg/dL AST 14 12 L (13-39) Units/L ALT 13 11 (7-52) Units/L Alkaline Phosphatase 25 L 21 L (34-104) Units/L Albumin 3.9 3.5 (3.5-5.7) g/dL Consult Discharge Plan - Plan Referrals: Ward Davis MD [Primary Care Provider] - 03/31/18 2:15 pm (1) Diabetes mellitus 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 mellitus supervisor intermediates insulin use: without detention use Diabetes mellitus complication status: without complication Qualified Code(s): E11.9 - Type 2 diabetes mellitus without complications (2) DVT (deep venous thrombosis) Qualifiers: DVT location: lower extremity Affected thrombotic vein of extremity: unspecified lower extremity proximal vein Chronicity: chronic Laterality: left Qualified Code(s): I82.5Y2 - 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
[2018-03-25] MEDS: Latanoprost 2.5 ML BOTTLE BOTH EYES SCH (21:00)
[2018-03-26 05:36] LABS: Basophils % 0.3 %; Eosinophils # 0.1 K/mcL (0.0-0.6); Eosinophils % 2.3 %; Hematocrit 29.2 % (35.3-44.9); Hemoglobin 9.9 g/dL (11.5-15.4); Immature Granulocytes % 0.2 % (0-4); Lymphocytes # 1.5 K/mcL (0.6-4.6); Lymphocytes % 23.9 %; Mean Corpuscular HGB Conc 33.9 g/dL (31.6-35.5); Mean Corpuscular Hemoglobin 33.1 pg (28.0-33.3); Mean Corpuscular Volume 97.7 fL (83.0-100.0); Mean Platelet Volume 10.8 fL (9.4-12.4); Monocytes # 0.7 K/mcL (0.0-1.3); Monocytes % 11.4 %; Neutrophils # 3.8 K/mcL (1.6-8.9); Platelet Count 180 K/mcL (140-400); Red Blood Count 2.99 M/mcL (3.82-4.97); Red Cell Distribution Width 12.9 % (11.5-14.5); Segmented Neutrophils % 61.9 %
[2018-03-26 05:57] LABS: BUN/Creatinine Ratio 23 (6-26); Blood Urea Nitrogen 16 mg/dL (8-23); Calcium 8.4 mg/dL (8.6-10.3); Carbon Dioxide 29 mEq/L (23-29); Chloride 103 mEq/L (98-107); Glucose 157 mg/dL (70-105); Osmolality,Calculated 292 (280-300); Potassium 3.9 mEq/L (3.5-5.1); Sodium 139 mEq/L (136-145); eGFR For Non-African Americans > 60 (> 60)
[2018-03-26] MEDS: Insulin LISPRO 300 UNITS/3 ML VIAL SQ SCH ×3 (07:48→16:59)
[2018-03-26] MEDS: *HR* HYDROcodone/Acet 5/325 mg TABLET PO PRN ×2 (07:49→15:40)
[2018-03-26] MEDS: Lisinopril 20 MG TABLET PO SCH (07:49)
[2018-03-26] MEDS: Apixaban 5 MG TABLET PO SCH ×2 (07:49→20:40)
[2018-03-26] MEDS: Fluticasone Propionate Nasal 50 MCG/SPRAY BOTTLE NS SCH (07:49)
[2018-03-26] MEDS: clonazePAM 0.5 MG TABLET PO SCH ×3 (07:49→20:40)
[2018-03-26] MEDS: (Cyclosporine [Restasis] 1 DROP) OP SCH ×2 (10:58→20:44)
--- NOTE | 2018-03-26 17:46 | Internal Med Progress Note ---
Hospitalist Progress Note - Encounter Date of Encounter: 03/26/18 Time of Encounter: 12:30 - Subjective Interval History: Patient was seen and assessed at bedside at 1230 AM. She is alert, awake, daughter is at bedside. Pt states that she is feeling some better, leg pain has improved. Pt states that has been up walking in the [address] and I encouraged her to sit in the chair for a bit today. She denies headache or blurred vision, she reports some intermittent nausea, no vomiting or diarrhea no abdominal pain. She denies chest pain or shortness of breath, no dizziness. Pt and daughter are aware that pt will be discharged to [facility] tomorrow. - Exam Vitals: Temp Pulse Resp BP Pulse Ox 99.0 F 87 18 160/78 97 03/26/18 16:01 03/26/18 16:01 03/26/18 16:01 03/26/18 16:01 03/26/18 16:01 - Assessment and Plan (1) Diabetes mellitus Current Visit: Yes Status: Chronic Assessment and Plan: A1c is 6.5%. Sliding scale insulin, Accu-Cheks before meals and at bedtime, diabetic diet. (2) DVT (deep venous thrombosis) Current Visit: Yes Status: Chronic Assessment and Plan: Patient is on Eliquis. Continue after discharge. (3) Fall (on) (from) other stairs and steps, initial encounter Current Visit: Yes Status: Acute Assessment and Plan: Mechanical fall at home. Mechanical. Patient states that she tripped. Patient with right shoulder pain, right hip, low back, bilateral knee pain. X-rays negative for fracture, possible small effusion in left knee. Monitor for falls and safety. PT while in the hospital, patient is going to be discharged to SNF for rehabilitation Continue pain control. (4) Hypocalcemia Current Visit: Yes Status: Acute Assessment and Plan: Unclear etiology. Received 2g of calcium gluconate in the ER. 8/3- 8.6 calcium this morning. Continue to monitor. 8/4- 8.4 this a.m. Calcium carbonate 1000mg QID (5) Hypernatremia Current Visit: Yes Status: Resolved (6) Hypertension Current Visit: Yes Status: Acute Assessment and Plan: Controlled. Continue current medications. (7) Knee effusion, left Current Visit: Yes Status: Acute Assessment and Plan: Mild left sided suprapatellar effusion on knee xray. No acute intervention. Outpatient follow up Pt reports that knee pain is improved. (8) DVT prophylaxis Current Visit: Yes Status: Acute Assessment and Plan: on eliquis (9) Failure to thrive in adult Current Visit: Yes Status: Acute Assessment and Plan: Patient reports recently and her son . He lived with her for multiple years, and reports caring for him at home in the months preceding his . She also reports that her other son who lives out of state is now in a long-term due to multiple strokes. Patient states that she is not eating well, he has decreased activity, not continued fluid. She reports that when she is she is not going to her upstairs or basement because of weakness and deconditioning. Patient is well known to me, she has lost weight and states that she normally eats one meal a day does not cook anymore. PT/OT have recommended patient go to SNF for rehabilitation after discharge. Patient and daughter are agreeable and patient will be discharged on Wednesday. 03/26-Pt will be discharged to [facility] tomorrow for rehab. (10) Weight loss Current Visit: Yes Status: Acute Assessment and Plan: Patient reports recent weight loss of unknown amount due to loss of son, feeling depressed, failure to thrive. Patient reports that she only eats one meal a day and that she does not cook anymore at home. Nutrition has been consulted and added dietary supplements. (11) Generalized weakness Current Visit: Yes Status: Acute Assessment and Plan: Likely due to depression, decreased activity, weight loss, FTT. Pt will be discharged on Wednesday when bed is ready at [facility]. (12) Hypomagnesemia Current Visit: Yes Status: Resolved DVT Prophylaxis: Plan as above. - Time Spent with Patient Total time spent is greater than 50% in coordination of care (as documented) at patient's floor/unit and/or counseling patient: Internal Medicine: Result - Labs CBC & Chem 7: 03/26/18 04:20 03/26/18 04:20 Labs: Short CBC 03/26/18 Range/Units 04:20 WBC 6.1 (4.3-11.1) K/mcL Hgb 9.9 L (11.5-15.4) g/dL Hct 29.2 L (35.3-44.9) % Plt Count 180 (140-400) K/mcL Neutrophils # 3.8 (1.6-8.9) K/mcL BMP 03/26/18 04:20 Sodium 139 Potassium 3.9 Chloride 103 Carbon Dioxide 29 BUN 16 Creatinine 0.69 Glucose 157 H Calcium 8.4 L Consult Discharge Plan - Plan Referrals: Ward Davis MD [Primary Care Provider] - 03/31/18 2:15 pm (1) Diabetes mellitus 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 mellitus adjunct faculty for medical terminology insulin use: without adjunct faculty for medical terminology use Diabetes mellitus complication status: without complication Qualified Code(s): E11.9 - Type 2 diabetes mellitus without complications (2) DVT (deep venous thrombosis) Qualifiers: DVT location: lower extremity Affected thrombotic vein of extremity: unspecified lower extremity proximal vein Chronicity: chronic Laterality: left Qualified Code(s): I82.5Y2 - 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
[2018-03-26] MEDS: Latanoprost 2.5 ML BOTTLE BOTH EYES SCH (20:44)
[2018-03-26] MEDS: traMADol 50 MG TABLET PO PRN (22:01)
[2018-03-27] MEDS ORDERED: *HR* LORazepam 2 MG/ML VIAL IVP ONE (00:22)
[2018-03-27] MEDS: traMADol 50 MG TABLET PO PRN (06:21)
[2018-03-27 06:29] LABS: Basophils % 0.4 %; Eosinophils # 0.3 K/mcL (0.0-0.6); Eosinophils % 5.1 %; Hematocrit 29.8 % (35.3-44.9); Hemoglobin 9.9 g/dL (11.5-15.4); Immature Granulocytes % 0.2 % (0-4); Lymphocytes # 1.5 K/mcL (0.6-4.6); Lymphocytes % 26.6 %; Mean Corpuscular HGB Conc 33.2 g/dL (31.6-35.5); Mean Corpuscular Hemoglobin 32.1 pg (28.0-33.3); Mean Corpuscular Volume 96.8 fL (83.0-100.0); Mean Platelet Volume 10.4 fL (9.4-12.4); Monocytes # 0.6 K/mcL (0.0-1.3); Monocytes % 10.5 %; Neutrophils # 3.2 K/mcL (1.6-8.9); Platelet Count 189 K/mcL (140-400); Red Blood Count 3.08 M/mcL (3.82-4.97); Red Cell Distribution Width 12.9 % (11.5-14.5); Segmented Neutrophils % 57.2 %
[2018-03-27 07:04] VITALS: BP 168/76
[2018-03-27] MEDS: Insulin LISPRO 300 UNITS/3 ML VIAL SQ SCH (07:18)
[2018-03-27] MEDS: Lisinopril 20 MG TABLET PO SCH (07:19)
[2018-03-27] MEDS: (Cyclosporine [Restasis] 1 DROP) OP SCH (07:19)
[2018-03-27] MEDS: clonazePAM 0.5 MG TABLET PO SCH (07:19)
[2018-03-27] MEDS: Apixaban 5 MG TABLET PO SCH (07:20)
[2018-03-27] MEDS: Fluticasone Propionate Nasal 50 MCG/SPRAY BOTTLE NS SCH (07:29)
[2018-03-27 08:05] LABS: BUN/Creatinine Ratio 24 (6-26); Blood Urea Nitrogen 12 mg/dL (8-23); Calcium 8.1 mg/dL (8.6-10.3); Carbon Dioxide 28 mEq/L (23-29); Chloride 102 mEq/L (98-107); Glucose 149 mg/dL (70-105); Osmolality,Calculated 289 (280-300); Potassium 3.8 mEq/L (3.5-5.1); Sodium 138 mEq/L (136-145); eGFR For Non-African Americans > 60 (> 60)
--- NOTE | 2018-03-27 10:25 | Discharge Summary ---
Orders not resulted at time of discharge: Pending orders 03/26/18 23:34 ECG 12 lead ECG [ECG] Stat 03/28/18 04:00 Basic Metabolic Panel AM 0400 Complete Blood Count [HEME] AM 0400 Date of Encounter: 03/27/18 Time of Encounter: 09:30 - Discharge Diagnosis (1) Diabetes mellitus Priority: Secondary Status: Chronic Assessment and Plan: A1c is 6.5%. Sliding scale insulin, Accu-Cheks before meals and at bedtime, diabetic diet. 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 X-rays negative for fracture, possible small effusion in left knee. Monitor for falls and safety. Discharge to [facility] for PT Continue pain control. (4) Hypocalcemia Priority: Secondary Status: Acute Assessment and Plan: Unclear etiology. Continue po supplements, increase dietary intake. (5) Hypernatremia Priority: Secondary Status: Resolved Assessment and Plan: Likely secondary to dehydration. Patient reports recent poor oral intake of food and fluid. Resolved. Pt is eating and drinking better, continue dietary supplements. (6) Hypertension Priority: Secondary Status: Acute Assessment and Plan: Controlled. Continue home medications. Qualifiers: Hypertension type: essential hypertension Qualified Code(s): I10 - Essential (primary) hypertension (7) Knee effusion, left Priority: Secondary Status: Acute Assessment and Plan: Mild left sided suprapatellar effusion on knee xray. Outpatient follow up Pt reports that knee pain is improved with improving ROM. (8) DVT prophylaxis Priority: Secondary Status: Acute Assessment and Plan: Continue Eliquis. (9) Failure to thrive in adult Priority: Secondary Status: Acute Assessment and Plan: 03/27- Discharged to [facility] for PT/OT. Pt plans to return home after rehab, daughter is active in pt's life and is going to try to have pt move in with her for a while. Patient reports recently and her son . He lived with her for multiple years, and reports caring for him at home in the months preceding his . She also reports that her other son who lives out of state is now in a skilled nursing due to multiple strokes. Patient states that she is not eating well, he has decreased activity, not continued fluid. She reports that when she is she is not going to her upstairs or basement because of weakness and deconditioning. Patient is well known to me, she has lost weight and states that she normally eats one meal a day does not cook anymore. PT/OT have recommended patient go to SNF for rehabilitation after discharge. Patient and daughter are agreeable and patient will be discharged on Wednesday. 03/26-Pt will be discharged to [facility] tomorrow for rehab. (10) Weight loss Priority: Secondary Status: Acute Assessment and Plan: Patient reports recent weight loss of unknown amount due to loss of son, depression, failure to thrive. Patient reports that she only eats one meal a day and that she does not cook anymore at home. Nutrition has been consulted and added dietary supplements. (11) Generalized weakness Priority: Secondary Status: Acute Assessment and Plan: PT/OT at [facility]. (12) Hypomagnesemia Priority: Secondary Status: Resolved Assessment and Plan: Resolved. Hospital course: Ms. Lopez is a 77 year old female with past medical history of hypertension , [place], CAD, diabetes, hyperlipidemia, DVT, anemia. Patient presented to the emergency department after mechanical fall at home. She had injuries to the right side of her body, no fractures, pain is improving. Patient still reports some right lower extremity pain that is controlled with Ultram. Patient had multiple electrolyte abnormalities on admission primarily due to dehydration and poor by mouth intake at home. They have all been repleted and labs are stable and within normal limits. Patient is depressed from caring for her son at home, she denies any suicidal ideations or homicidal ideations and states that she just needs to get back on her feet and feels positive about changes coming. Vital signs are stable and within normal limits. Patient is going to be discharged to [facility] for inpatient physical therapy. Discharge discussed with: patient, family, nurse - Time Spent with Patient Total time spent providing and/or coordinating discharge services: Less than 30 minutes - Discharge Medications Prescriptions: Tramadol HCl [Ultram] 50 mg PO BID PRN 2 Days #4 tab PRN Reason: Pain Home Medications: Apixaban [Eliquis] 5 mg PO BID 01/16/18 [History] Atorvastatin Calcium [Lipitor] 20 mg PO HS 01/16/18 [History] Bimatoprost [Lumigan] 1 drop OP DAILY 01/16/18 [History] Buspirone HCl [Buspar] 15 mg PO TID 01/16/18 [History] Cyclosporine [Restasis] 1 drop OP BID 01/16/18 [History] Diphenoxylate/Atropine [Lomotil 2.5 mg/0.025 mg] 1 tab PO TID 01/16/18 [History] Fluticasone Propionate Nasal [Flonase] 1 spr NS DAILY 01/16/18 [History] Loratadine [Allergy Relief] 10 mg PO DAILY 01/16/18 [History] Nitroglycerin [Nitrostat] 0.4 mg SL Q5M PRN 01/16/18 [History] [place]-3 Fatty Acids [Fish Oil] 1,200 mg PO DAILY 01/16/18 [History] Sertraline [Zoloft] 100 mg PO DAILY 01/16/18 [History] clonazePAM [Klonopin] 0.5 mg PO TID 01/16/18 [History] hydrOXYzine pamoate [HydrOXYzine Pamoate] 25 mg PO BID PRN 01/16/18 [History] hydroCHLOROthiazide [Hydrochlorothiazide] 25 mg PO DAILY 01/16/18 [History] metFORMIN [Glucophage] 500 mg PO BIDWM 01/16/18 [History] Omeprazole [PriLOSEC] 40 mg PO DAILY 01/17/18 [History] Lisinopril [Zestril] 20 mg PO DAILY #30 tablet 01/18/18 [Rx] Calcium Carbonate [Tums] 1,000 mg PO QID tab.chew 03/27/18 [Rx] Tramadol HCl [Ultram] 50 mg PO BID PRN 2 Days #4 tab 03/27/18 [Rx] Allergies/Adverse Reactions: 3 Allergy/AdvReac Type Severity Reaction Status Date / Time clonidine Allergy Swelling Verified 03/24/18 19:37 of Lip/Tongue/Throat citalopram [From Celexa] AdvReac Hypertensio Verified 03/24/18 19:37 n Date of admission: 03/24/18 21:05 Primary care physician: Ward Davis MD Consults: 03/24/18 23:39 Consult to Physical Therapy [CONS] Routine Comment: Evaluate, develop and implement POC Reason for Consult: weakness, fall Does patient have active BEDREST order?: No Is patient medically & hemodynamically stable?: No Patient assessed for mobility or mobilized this visit?: No 03/25/18 10:32 OT [Consult to Occupational Therapy] [CONS] Routine Comment: Evaluate, develop and implement POC Reason for Consult: fall @ home, weakness Does patient have active BEDREST order?: No Is patient medically & hemodynamically stable?: No 03/25/18 10:33 Consult to Nutrition [CONS] Routine Comment: Consulting Provider: NUTRITION Reason for Dietary Consult: Diet Education 03/25/18 14:22 Consult to Head Of Global Strategic [employer]s [CONS] Routine Reason for SW Consult: placement to [facility] for rehab. Discharging clinician: Shaye Lopez Anticipated date of discharge: 03/27/18 - Constitutional Vitals: Temp Pulse Resp BP Pulse Ox 98.0 F 84 18 168/76 94 03/27/18 07:03 03/27/18 07:03 03/27/18 07:03 03/27/18 07:03 03/27/18 07:30 General appearance: Present: cachectic, A&O X 3, pleasant, no acute distress, answers questions appropriately - Head Head exam: Present: atraumatic, normal inspection, normocephalic - Eye Eye exam: Present: normal appearance, conjuntiva pink, sclera anicteric - Neck Neck exam general surgery: Present: supple, trachea midline. Absent: lymphadenopathy, tenderness - Respiratory Respiratory exam: Present: CTAB. Absent: accessory muscle use, chest wall tenderness, rales, respiratory distress, rhonchi, wheezes - Cardiovascular Cardiovascular exam: Present: RRR, +S1, +S2. Absent: diastolic murmur, gallop, rubs, systolic murmur - GI/Abdominal GI/Abdominal exam: Present: normal bowel sounds, soft. Absent: distended, hepatomegaly, tenderness - Extremities Exam Extremities exam: Present: normal capillary refill, normal inspection, warm, radial pulses palpable and symmetrical. Absent: calf tenderness, cyanotic, pedal edema, tenderness - Neurological Exam Neurological exam: Present: alert, oriented X3, no focal deficits. Absent: facial droop, speech deficit - Skin Skin exam: Present: dry, intact, normal color, warm. Absent: rash - Patient Status Disposition: Transfer SNF Condition: Good Functional capacity at discharge: uses cane/walker Overall status at discharge: patient is progressing back to baseline - Discharge Instructions Instructions: Myocardial Infarction (DC), Heart Failure (DC), Chest Pain (DC), Diabetes Mellitus Type 2 in Adults (DC), Chronic Hypertension (DC), Anemia (GEN) , Anxiety (DC), Fall Prevention (DC) Follow Up With: Ward Davis MD [Primary Care Provider] - 03/31/18 2:15 pm - Diet and Activity Activity: as per physical therapy Diet: advance to your usual diet
[2018-03-27] MEDS: *HR* HYDROcodone/Acet 5/325 mg TABLET PO PRN (10:43)
--- NOTE | 2018-03-27 11:05 | Physician Discharge Referral ---
ExtendedCare Referral Info Transfer To: Signature Provider in Charge after Transfer: PCP Institutional Level of Care: Skilled - Diagnosis (1) Diabetes mellitus Priority: Secondary Status: Chronic (2) DVT (deep venous thrombosis) Priority: Secondary Status: Chronic (3) Fall (on) (from) other stairs and steps, initial encounter Priority: Secondary Status: Acute (4) Hypocalcemia Priority: Secondary Status: Acute (5) Hypernatremia Priority: Secondary Status: Resolved (6) Hypertension Priority: Secondary Status: Acute (7) Knee effusion, left Priority: Secondary Status: Acute (8) DVT prophylaxis Priority: Secondary Status: Acute (9) Failure to thrive in adult Priority: Primary Status: Acute (10) Weight loss Priority: Secondary Status: Acute (11) Generalized weakness Priority: Secondary Status: Acute (12) Hypomagnesemia Priority: Secondary Status: Resolved Prognosis: Good Aware of Diagnosis: Patient Aware of Prognosis: Family - Transfer Medications Prescriptions: Tramadol HCl [Ultram] 50 mg PO BID PRN 2 Days #4 tab PRN Reason: Pain Home Medications: Apixaban [Eliquis] 5 mg PO BID 01/16/18 [History] Atorvastatin Calcium [Lipitor] 20 mg PO HS 01/16/18 [History] Bimatoprost [Lumigan] 1 drop OP DAILY 01/16/18 [History] Buspirone HCl [Buspar] 15 mg PO TID 01/16/18 [History] Cyclosporine [Restasis] 1 drop OP BID 01/16/18 [History] Diphenoxylate/Atropine [Lomotil 2.5 mg/0.025 mg] 1 tab PO TID 01/16/18 [History] Fluticasone Propionate Nasal [Flonase] 1 spr NS DAILY 01/16/18 [History] Loratadine [Allergy Relief] 10 mg PO DAILY 01/16/18 [History] Nitroglycerin [Nitrostat] 0.4 mg SL Q5M PRN 01/16/18 [History] [place]-3 Fatty Acids [Fish Oil] 1,200 mg PO DAILY 01/16/18 [History] Sertraline [Zoloft] 100 mg PO DAILY 01/16/18 [History] clonazePAM [Klonopin] 0.5 mg PO TID 01/16/18 [History] hydrOXYzine pamoate [HydrOXYzine Pamoate] 25 mg PO BID PRN 01/16/18 [History] hydroCHLOROthiazide [Hydrochlorothiazide] 25 mg PO DAILY 01/16/18 [History] metFORMIN [Glucophage] 500 mg PO BIDWM 01/16/18 [History] Omeprazole [PriLOSEC] 40 mg PO DAILY 01/17/18 [History] Lisinopril [Zestril] 20 mg PO DAILY #30 tablet 01/18/18 [Rx] Calcium Carbonate [Tums] 1,000 mg PO QID tab.chew 03/27/18 [Rx] Tramadol HCl [Ultram] 50 mg PO BID PRN 2 Days #4 tab 03/27/18 [Rx] Allergies/Adverse Reactions: 3 Allergy/AdvReac Type Severity Reaction Status Date / Time clonidine Allergy Swelling Verified 03/24/18 19:37 of Lip/Tongue/Throat citalopram [From Celexa] AdvReac Hypertensio Verified 03/24/18 19:37 n - Respiratory Orders Smoking Cessation: Smoking cessation has been advised. For more information, call the [place] Tobacco Quit Line at 7-237-KWRI-NOW. - Lab Orders Lab Orders: CBC, U/A, Eddie 17, CXR yearly - Ancillary Orders May use pressure relief devices daily prn, May go on MYLES w/family/respon green party w /meds at nurse discretion PRN, May consult with Dentist, Color Dipper, Interventional Physician PRN - Advance Directives Code Status: Full Code CERTIFICATION: I certify that the transfer of the above named patient to an Extended Care Facility is necessary for the continuing treatment of the diagnosis listed. The above information is true and accurate reflection of patient's current condition. Confidential - Redisclosure prohibited without a patient's written consent.
--- NOTE | 2018-03-28 09:29 | Electrocardiograph Report ---
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
== END 2018-03-27 13:29 | DRG 605 ==
LOC: 3BNU 16:23 → EMEROO 16:23 → 3BNU 20:51
PROVIDERS: ADMIT Internal Medicine; ATTEND Internal Medicine

== ENCOUNTER 2018-05-31 17:33 | Inpatient (IN) ==
[2018-05-31 18:47] LABS: Basophils % 0.8 %; Eosinophils # 0.2 K/mcL (0.0-0.6); Eosinophils % 4.6 %; Hematocrit 35.9 % (35.3-44.9); Immature Granulocytes % 0.2 % (0-4); Lymphocytes # 1.8 K/mcL (0.6-4.6); Lymphocytes % 35.2 %; Mean Corpuscular HGB Conc 33.4 g/dL (31.6-35.5); Mean Corpuscular Hemoglobin 31.9 pg (28.0-33.3); Mean Corpuscular Volume 95.5 fL (83.0-100.0); Mean Platelet Volume 10.3 fL (9.4-12.4); Monocytes # 0.4 K/mcL (0.0-1.3); Monocytes % 7.7 %; Neutrophils # 2.7 K/mcL (1.6-8.9); Platelet Count 260 K/mcL (140-400); Red Blood Count 3.76 M/mcL (3.82-4.97); Red Cell Distribution Width 12.8 % (11.5-14.5); Segmented Neutrophils % 51.5 %
[2018-05-31 18:54] LABS: INR 1.2
[2018-05-31 18:56] LABS: Activated Partial Thrombo Time 50.6 Seconds (26.0-36.0)
[2018-05-31 19:09] LABS: Troponin I < 0.03 ng/mL (< 0.04)
[2018-05-31 19:10] LABS: BUN/Creatinine Ratio 27 (6-26); Blood Urea Nitrogen 17 mg/dL (8-23); Calcium 8.9 mg/dL (8.6-10.3); Carbon Dioxide 30 mEq/L (23-29); Chloride 100 mEq/L (98-107); Glucose 121 mg/dL (70-105); Osmolality,Calculated 287 (280-300); Potassium 4.2 mEq/L (3.5-5.1); Sodium 137 mEq/L (136-145); eGFR For Non-African Americans > 60 (> 60)
[2018-05-31] MEDS ORDERED: *HR* Heparin 5,000 UNIT/ML VIAL IVP ONE (19:39)
[2018-05-31] MEDS ORDERED: *HR* Heparin 5,000 UNIT/ML VIAL IVP PRN ×2 (19:39)
--- NOTE | 2018-05-31 19:52 | Emergency Department Note ---
Disposition Clinical Impression: DVT (deep venous thrombosis) Qualifiers: DVT location: lower extremity Affected thrombotic vein of extremity: femoral Chronicity: acute Laterality: left Qualified Code(s): I82.412 - Acute embolism and thrombosis of left femoral vein Disposition: Admitted As Inpatient Condition: Good Referrals: Ward Davis MD [Primary Care Provider] - General Adult HPI - General Chief complaint: ED Extremity Problem,Nontraumatic Stated complaint: CP/leg pain Time Seen by Provider: 05/31/18 18:50 Source: patient, family Limitations: no limitations Nursing Notes Reviewed: Yes Vital Signs Reviewed: Yes - History of Present Illness HPI Narrative: Patient presents to emergency department today for evaluation of lower left leg pain. Patient was sent by software support technician, Dr. MONAHAN. Patient states that she has been having swelling in the left lower leg for last couple of days with associated tenderness is to the posterior calf. Patient states that she is also develop chest pain in the center chest which she describes as a heaviness. Patient states that she is not currently having any active chest pain. Chest pain happened earlier in the day. No specific aggravating or alleviating factors. Daughter is at bedside and states that she has significant amounts of anxiety. Patient has not had diaphoresis or nausea. No abdominal pain or vomiting no radiation to the jaw or the bilateral shoulders. Pain Scale: 3 - Related Data Home Medications Medication Instructions Recorded Confirmed Atorvastatin Calcium [Lipitor] 20 mg PO HS 01/16/18 05/27/18 Bimatoprost [Lumigan] 1 drop OP DAILY 01/16/18 05/27/18 Buspirone HCl [Buspar] 15 mg PO TID 01/16/18 05/27/18 Cyclosporine [Restasis] 1 drop OP BID 01/16/18 05/27/18 Diphenoxylate/Atropine [Lomotil 1 tab PO TID 01/16/18 05/27/18 2.5 mg/0.025 mg] Fluticasone Propionate Nasal 1 spr NS DAILY 01/16/18 05/27/18 [Flonase] Loratadine [Allergy Relief] 10 mg PO DAILY 01/16/18 05/27/18 Nitroglycerin [Nitrostat] 0.4 mg SL Q5M PRN 01/16/18 05/27/18 [place]-3 Fatty Acids [Fish Oil] 1,200 mg PO DAILY 01/16/18 05/27/18 Sertraline [Zoloft] 100 mg PO DAILY 01/16/18 05/27/18 hydroCHLOROthiazide 25 mg PO DAILY 01/16/18 05/27/18 [Hydrochlorothiazide] metFORMIN [Glucophage] 500 mg PO BIDWM 01/16/18 05/27/18 Omeprazole [PriLOSEC] 40 mg PO DAILY 01/17/18 05/27/18 Previous Rx's Medication Instructions Recorded Lisinopril [Zestril] 20 mg PO DAILY #30 tablet 01/18/18 Calcium Carbonate [Tums] 1,000 mg PO QID tab.chew 03/27/18 Tramadol HCl [Ultram] 50 mg PO BID PRN 2 Days #4 tab 03/27/18 clonazePAM [Klonopin] 0.5 mg PO TID 2 Days #6 tablet 03/27/18 Apixaban [Eliquis] 5 mg PO BID #120 tablet 05/16/18 Allergies Allergy/AdvReac Type Severity Reaction Status Date / Time clonidine Allergy Swelling Verified 05/27/18 09:33 of Lip/Tongue/Throat citalopram [From Celexa] AdvReac Hypertensio Verified 05/27/18 09:33 n Constitutional: Denies: fever, chills ENT ED: Denies: congestion Cardiovascular: Reports: chest pain. Denies: dyspnea on exertion Respiratory: Denies: cough, dyspnea Gastrointestinal: Denies: abdominal pain, nausea, vomiting Genitourinary: Denies: urgency, dysuria Musculoskeletal: Denies: back pain Integumentary: Denies: rash, abrasion Psychiatric: Reports: anxiety Endocrine: Denies: fatigue Past Medical History - Past Medical History Medical history: Reports: DVT, diabetes, hypertension, other Surgical history: Reports: non-contributory, carotid endarterectomy, cataract, hysterectomy, splenectomy, other Psychiatric history: Reports: anxiety, depression CUSTODY ASSISTANT history: Reports: no CUSTODY ASSISTANT history - Social History Smoking Status: Former smoker Smokeless Tobacco Status: No Alcohol use: Reports: none Drug use: Reports: none Physical Exam General: Well appearing, nontoxic, no acute distress Head: Normocephalic Atraumatic Eyes: PERRL, EOMI ENT: Airway patent, no stridor Neck: supple Chest: Lungs clear to auscultation bilateral Cardiac: Regular rate and rhythm, no murmurs, rubs or gallops Abdomen: soft, nontender, nondistended; no guarding, rebound, or tenderness to percussion Musculoskeletal: Left calf with mild swelling compared to the right. Patient has tenderness posterior calf. +2 radial pulses bilaterally. Sensation intact bilaterally. Skin: No rash, normal skin tone Neuro: Alert and Oriented to person, place, and time; No focal deficit, CN 2-12 symmetric and intact - General Limitations: no limitations General appearance: alert Course - Reevaluation(s) Reevaluation #1: Patient is positive for DVT in the left leg. She has been on Eliquis for DVTs. Last known DVT was proximal 0.2 years ago. Initially placed on Coumadin and transition to Lovenox and then placed on Eliquis. Patient is not had issues with Eliquis or recurrent DVTs until today. Patient did have Eliquis today at 7 :30. I did call pharmacy. The patient has been 12 hours since her initial Eliquis and is able to receive standard dose heparin at this time. - Consultations Consultation #1: Discussed with hospitalist. Patient accepted for admission. Vital Signs Temperature 97.8 F 05/31/18 17:53 Pulse Rate 81 05/31/18 17:53 Respiratory Rate 20 05/31/18 17:53 Blood Pressure 149/78 05/31/18 17:53 O2 Sat by Pulse Oximetry 94 05/31/18 17:53 Temperature 97.8 F 05/31/18 17:53 Pulse Rate 71 05/31/18 18:44 Respiratory Rate 16 05/31/18 18:44 Blood Pressure 146/78 05/31/18 18:44 O2 Sat by Pulse Oximetry 97 05/31/18 18:44 Oxygen Delivery Oxygen Delivery Room Air Medical Decision Making - Medical Records Medical records reviewed: Yes I reviewed the patient's medical records. - Lab Data Lab results reviewed: Yes I reviewed the patient's lab results. Result diagrams: 05/31/18 18:29 05/31/18 18:29 Lab Results 05/31/18 05/31/18 05/31/18 Range/Units 18:29 18:29 18:29 WBC 5.2 (4.3-11.1) K/mcL RBC 3.76 L (3.82-4.97) M/mcL Hgb 12.0 (11.5-15.4) g/dL Hct 35.9 (35.3-44.9) % MCV 95.5 (83.0-100.0) fL MCH 31.9 (28.0-33.3) pg MCHC 33.4 (31.6-35.5) g/dL RDW 12.8 (11.5-14.5) % Plt Count 260 (140-400) K/mcL MPV 10.3 (9.4-12.4) fL Immature Gran % 0.2 (0-4) % Seg Neutrophils % 51.5 % Lymphocytes % 35.2 % Monocytes % 7.7 % Eosinophils % 4.6 % Basophils % 0.8 % Neutrophils # 2.7 (1.6-8.9) K/mcL Lymphocytes # 1.8 (0.6-4.6) K/mcL Monocytes # 0.4 (0.0-1.3) K/mcL Eosinophils # 0.2 (0.0-0.6) K/mcL Basophils # 0.0 (0.0-0.2) K/mcL PT 13.0 H (9.4-12.1) Seconds INR 1.2 APTT 50.6 H (26.0-36.0) Seconds Sodium (136-145) mEq/L Potassium (3.5-5.1) mEq/L Chloride (98-107) mEq/L Carbon Dioxide (23-29) mEq/L BUN (8-23) mg/dL Creatinine (0.60-1.20) mg/dL Est GFR ( Amer) (> 60) Est GFR (Non-Af Amer) (> 60) BUN/Creatinine Ratio (6-26) Glucose (70-105) mg/dL Calculated Osmolality (280-300) Calcium (8.6-10.3) mg/dL Troponin I (< 0.04) ng/mL B-Natriuretic Peptide 65 (Less than 100) pg/mL 05/31/18 Range/Units 18:29 WBC (4.3-11.1) K/mcL RBC (3.82-4.97) M/mcL Hgb (11.5-15.4) g/dL Hct (35.3-44.9) % MCV (83.0-100.0) fL MCH (28.0-33.3) pg MCHC (31.6-35.5) g/dL RDW (11.5-14.5) % Plt Count (140-400) K/mcL MPV (9.4-12.4) fL Immature Gran % (0-4) % Seg Neutrophils % % Lymphocytes % % Monocytes % % Eosinophils % % Basophils % % Neutrophils # (1.6-8.9) K/mcL Lymphocytes # (0.6-4.6) K/mcL Monocytes # (0.0-1.3) K/mcL Eosinophils # (0.0-0.6) K/mcL Basophils # (0.0-0.2) K/mcL PT (9.4-12.1) Seconds INR APTT (26.0-36.0) Seconds Sodium 137 (136-145) mEq/L Potassium 4.2 (3.5-5.1) mEq/L Chloride 100 (98-107) mEq/L Carbon Dioxide 30 H (23-29) mEq/L BUN 17 (8-23) mg/dL Creatinine 0.63 (0.60-1.20) mg/dL Est GFR ( Amer) > 60 (> 60) Est GFR (Non-Af Amer) > 60 (> 60) BUN/Creatinine Ratio 27 H (6-26) Glucose 121 H (70-105) mg/dL Calculated Osmolality 287 (280-300) Calcium 8.9 (8.6-10.3) mg/dL Troponin I < 0.03 (< 0.04) ng/mL B-Natriuretic Peptide (Less than 100) pg/mL - Radiology Data Radiology results reviewed: Yes I reviewed the patient's radiology results. - EKG Data EKG #1 EKG attestation: Yes I reviewed and interpreted this EKG. EKG results narrative: Patient's EKG shows sinus rhythm with a heart rate of 71. NH interval 205. QRS 94. QTC 425. Patient has no significant ST elevations or depressions. Patient's EKG compared to previous of 05/01/18 is unchanged.
[2018-05-31] MEDS ORDERED: hydrOXYzine pamoate 25 MG CAPSULE PO PRN (20:46)
[2018-05-31] MEDS ORDERED: Dextrose Gel 15 GM/37.5 ML TUBE PO PRN ×2 (20:47)
[2018-05-31] MEDS ORDERED: Isovue-370 500 ML INFUS..BTL IV ONE (20:49)
[2018-05-31] MEDS ORDERED: Ringers Solution, Lactated 1,000 ML IVC SCH (21:00)
[2018-05-31] MEDS: Heparin 25,000 UNIT/500 ML D5W 25,000 UNIT/500 ML BAG IVC SCH (21:06)
--- NOTE | 2018-05-31 21:20 | Internal Med History&Physical ---
Date of Encounter: 05/31/18 Time of Encounter: 21:19 Internal Medicine - H&P: HPI Chief complaint: left leg pain Admitted From: Home Plans for Post Hospital Care: Home History of present illness: Ms. Lopez is 77-year-old female with medical history significant for heart disease, diabetes mellitus, hypertension, arthritis and bilateral lower extremity DVT in November 2016. She follows with hematology and her labs were negative for FVL mutation, protein C/S anomalies but was found LAC positive on 2 occasions. She was initially on warfarin before being switched to enoxaparin then rivaroxaban but found to have left leg acue thrombosis in 2016 and now is on apixaban. 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 Duplex study confirmed a new DVT finding. She is now started on heparin gtt as her last oral dose was 12 hours ago. At this time she is laying comfortably in bed. She does state she had an episode of chest pain and shortness of breath however it was short-lived she admits to having anxiety disorder for which she takes clonazepam three times a day. She denies any bleeding episodes ever since on anticoagulation. Past Med Surg Social Fam HX - Past Medical History Medical history: DVT, diabetes, hypertension, other Additional medical history: kidney disease. Psychiatric history: anxiety, depression - Past Surgical History Surgical History: non-contributory, carotid endarterectomy, cataract, hysterectomy, splenectomy, other Additional surgical history: heart cath - Social History Smoking Status: Former smoker Smokeless Tobacco Status: No Alcohol use: none Drug use: none - Family History Mother Adopted: No Family Member Ethnicity: Non- Living Status: Hx Family Cardiac Disorders: Yes (HTN) Hx Family Respiratory Disorders: No Hx Family Cancer: No Hx Family GI Disorders: No Hx Family Endocrine Disorder: No Hx Family Neuromuscular Disorders: Yes (CVA) Hx Family Neurologic Disorders: Yes (stroke) Hx Family HEENT Disorders: No Hx Family Autoimmune Disorders: No Father Family Member Ethnicity: Non- Living Status: Hx Family Cardiac Disorders: Yes (heartfailure) Maternal Adopted: No Family Member Ethnicity: Non- Living Status: Hx Family Cardiac Disorders: Yes (HTN) Hx Family Respiratory Disorders: No Hx Family Cancer: No Hx Family GI Disorders: No Hx Family Endocrine Disorder: No Hx Family Neuromuscular Disorders: No Hx Family Neurologic Disorders: Yes (CVA) Hx Family HEENT Disorders: No Hx Family Autoimmune Disorders: No Internal Medicine - H&P: Meds RX: Atorvastatin Calcium [Lipitor] 20 mg PO HS 01/16/18 [History] RX: Bimatoprost [Lumigan] 1 drop OP DAILY 01/16/18 [History] RX: Buspirone HCl [Buspar] 15 mg PO TID 01/16/18 [History] RX: Cyclosporine [Restasis] 1 drop OP BID 01/16/18 [History] RX: Diphenoxylate/Atropine [Lomotil 2.5 mg/0.025 mg] 1 tab PO TID 01/16/18 [ History] RX: Fluticasone Propionate Nasal [Flonase] 1 spr NS DAILY 01/16/18 [History] RX: Loratadine [Allergy Relief] 10 mg PO DAILY 01/16/18 [History] RX: Nitroglycerin [Nitrostat] 0.4 mg SL Q5M PRN 01/16/18 [History] RX: [place]-3 Fatty Acids [Fish Oil] 1,200 mg PO DAILY 01/16/18 [History] RX: Sertraline [Zoloft] 100 mg PO DAILY 01/16/18 [History] RX: hydroCHLOROthiazide [Hydrochlorothiazide] 25 mg PO DAILY 01/16/18 [History] RX: metFORMIN [Glucophage] 1,000 mg PO BIDWM 01/16/18 [History] RX: Omeprazole [PriLOSEC] 40 mg PO DAILY 01/17/18 [History] RX: Lisinopril [Zestril] 20 mg PO DAILY #30 tablet 01/18/18 [Rx] RX: Calcium Carbonate [Tums] 1,000 mg PO QID tab.chew 03/27/18 [Rx] RX: clonazePAM [Klonopin] 0.5 mg PO TID 2 Days #6 tablet 03/27/18 [Rx] Apixaban [Eliquis] 5 mg PO BID #120 tablet 05/16/18 [Rx] Ferrous Sulfate [Iron] 325 mg PO BID 05/31/18 [History] RX: hydrOXYzine pamoate [HydrOXYzine Pamoate] 25 mg PO BID PRN 05/31/18 [History ] 3 Allergy/AdvReac Type Severity Reaction Status Date / Time clonidine Allergy Swelling Verified 05/27/18 09:33 of Lip/Tongue/Throat citalopram [From Celexa] AdvReac Hypertensio Verified 05/27/18 09:33 n All Systems PM: A 10-system review of systems was performed and is negative for pertinent findings except as documented above in the HPI. - Constitutional Vitals: Temp Pulse Resp BP Pulse Ox 97.8 F 66 16 170/86 97 05/31/18 17:53 05/31/18 21:09 05/31/18 21:09 05/31/18 21:09 05/31/18 21:09 Exam: Vitals: Reviewed General: Well-appearing, NAD Skin: Thin, warm. HEENT: Moist mucous membranes. Mild conjunctivae pallor. Neck: No lymphadenopathy. No JVD. No carotid bruits. No palpable thyroid. Chest: Normal thoracic expansion. Normal breath sounds. Clear to auscultation. Heart: Normal S1 & S2; rhythmic. No rubs or murmurs. Abdomen: Non-distended, soft and non-tender to palpation. No peritoneal reaction. Extremities: Left leg cir Neurological: Awake, alert and oriented to person, place and time. No focal deficits. Psych: Affect appropriate. Internal Med - H&P Results - Labs CBC & Chem 7: 05/31/18 18:29 05/31/18 18:29 - Assessment and plan (1) DVT (deep venous thrombosis) Current Visit: Yes Status: Chronic Assessment and plan: New onset. Will place on heparin gtt for now and consult hematology for recommendations on long-term AC options for her. Given report of chest pain and dyspnea, will get CTA to rule out concomitant PE. Qualifiers: DVT location: lower extremity Affected thrombotic vein of extremity: femoral Chronicity: acute Laterality: left Qualified Code(s): I82.412 - Acute embolism and thrombosis of left femoral vein (2) VTE (venous thromboembolism) Current Visit: Yes Status: Acute Assessment and plan: Recurring episodes. Seen to have lupus anticoagulant positivity although rest of hypercoagulable work up was unremarkable. Hematology consulted for further recs. (3) Anemia of chronic disease Current Visit: Yes Status: Chronic Assessment and plan: Will continue longstanding FeSO4. (4) Anxiety Current Visit: Yes Status: Chronic Assessment and plan: Will continue home meds of hydroxyzine prn and clonazepam TID. (5) BMI less than 19,adult Current Visit: Yes Status: Chronic Assessment and plan: Frail. Protein-caloric malnutrition evident. Will benefit from nutrition consultation. (6) Diabetes mellitus Current Visit: Yes Status: Chronic Assessment and plan: Will place on ISS while hospitalized. Check A1C. 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 mellitus terminal operations manager insulin use: without terminal operations manager use Diabetes mellitus complication status: without complication Qualified Code(s): E11.9 - Type 2 diabetes mellitus without complications (7) HLD (hyperlipidemia) Current Visit: Yes Status: Chronic Assessment and plan: Resume statin therapy. Qualifiers: Hyperlipidemia type: pure hypercholesterolemia Qualified Code(s): E78.00 - Pure hypercholesterolemia, unspecified; E78.0 - Pure hypercholesterolemia (8) HTN (hypertension) Current Visit: Yes Status: Chronic Assessment and plan: Reasonably controlled. Will resume antihypertensives. Qualifiers: Hypertension type: essential hypertension Qualified Code(s): I10 - Essential (primary) hypertension - Time Spent With Patient Total time spent is greater than 50% in coordination of care (as documented) at patient's floor/unit and/or counseling patient: Greater than 35 minutes
[2018-05-31] MEDS: Insulin LISPRO 300 UNITS/3 ML VIAL SQ SCH (23:28)
[2018-05-31] MEDS: clonazePAM 0.5 MG TABLET PO SCH (23:28)
[2018-05-31] MEDS: Nitroglycerin 0.4 MG TAB.SUBL SL PRN ×2 (23:47→23:52)
[2018-06-01 01:08] LABS: Basophils % 0.8 %; Eosinophils # 0.3 K/mcL (0.0-0.6); Eosinophils % 4.9 %; Hematocrit 35.8 % (35.3-44.9); Immature Granulocytes % 0.2 % (0-4); Lymphocytes # 2.2 K/mcL (0.6-4.6); Lymphocytes % 42.7 %; Mean Corpuscular HGB Conc 33.5 g/dL (31.6-35.5); Mean Corpuscular Volume 95.5 fL (83.0-100.0); Mean Platelet Volume 10.5 fL (9.4-12.4); Monocytes # 0.4 K/mcL (0.0-1.3); Monocytes % 7.8 %; Neutrophils # 2.3 K/mcL (1.6-8.9); Platelet Count 256 K/mcL (140-400); Red Blood Count 3.75 M/mcL (3.82-4.97); Red Cell Distribution Width 12.9 % (11.5-14.5); Segmented Neutrophils % 43.6 %
[2018-06-01 01:26] LABS: Alanine Aminotransferase 13 Units/L (7-52); Albumin 3.9 g/dL (3.5-5.7); Albumin/Globulin Ratio 2.4 (1.1-2.2); Alkaline Phosphatase 39 Units/L (34-104); Aspartate Amino Transferase 15 Units/L (13-39); BUN/Creatinine Ratio 22 (6-26); Bilirubin,Direct 0.1 mg/dL (0.0-0.2); Bilirubin,Indirect 0.2 mg/dL (0.0-1.2); Bilirubin,Total 0.3 mg/dL (0.3-1.0); Blood Urea Nitrogen 15 mg/dL (8-23); Calcium 8.8 mg/dL (8.6-10.3); Carbon Dioxide 29 mEq/L (23-29); Chloride 100 mEq/L (98-107); Globulin 1.6 g/dL (2.4-3.5); Glucose 224 mg/dL (70-105); Magnesium 1.2 mg/dL (1.6-2.6); Osmolality,Calculated 292 (280-300); Potassium 3.7 mEq/L (3.5-5.1); Sodium 137 mEq/L (136-145); Total Protein 5.5 g/dL (6.4-8.9); eGFR For Non-African Americans > 60 (> 60)
[2018-06-01 04:36] LABS: Heparin anti-factor XA UFH 0.65 IU/mL (0.30-0.70); Prothrombin Time 11.6 Seconds (9.4-12.1)
[2018-06-01] MEDS ORDERED: Acetaminophen 325 MG TABLET PO ONE ×2 (04:37→09:12)
[2018-06-01 05:08] LABS: Activated Partial Thrombo Time 164.1 Seconds (26.0-36.0)
[2018-06-01] MEDS: Cyclosporine [Restasis] OP SCH ×2 (07:34→08:59)
[2018-06-01] MEDS: Insulin LISPRO 300 UNITS/3 ML VIAL SQ SCH ×4 (07:37→21:24)
[2018-06-01] MEDS: hydroCHLOROthiazide 25 MG TABLET PO SCH (08:58)
[2018-06-01] MEDS: Lisinopril 20 MG TABLET PO SCH (08:58)
[2018-06-01] MEDS: Loratadine 10 MG TABLET PO SCH (08:58)
[2018-06-01] MEDS: clonazePAM 0.5 MG TABLET PO SCH ×3 (08:58→21:24)
[2018-06-01] MEDS: Latanoprost 2.5 ML BOTTLE BOTH EYES SCH (08:59)
[2018-06-01] MEDS: Fluticasone Propionate Nasal 50 MCG/SPRAY BOTTLE NS SCH (08:59)
--- NOTE | 2018-06-01 09:36 | Electrocardiograph Report ---
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
--- NOTE | 2018-06-01 09:44 | Electrocardiograph Report ---
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
--- NOTE | 2018-06-01 09:48 | Electrocardiograph Report ---
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
[2018-06-01] MEDS ORDERED: 0.9 % Sodium Chloride 500 ML ONE (11:36)
[2018-06-01 12:32] LABS: Bilirubin,Urine Negative (Negative); Blood,Urine Negative (Negative); Clarity,Urine Clear (Clear); Color,Urine Yellow (Yellow); Glucose,Urine (UA) 100 mg/dL (Normal); Ketones,Urine Negative (Negative); Leukocyte Esterase,Urine Negative (Negative); Nitrite,Urine Negative (Negative); PH,Urine 7.5 pH Units (5.0-8.0); Protein,Urine Negative (Neg-Trace); Specific Gravity,Urine 1.025 (1.010-1.025); Urobilinogen,Urine Normal (Normal)
--- NOTE | 2018-06-01 13:25 | Oncology Inp Consult Note ---
<Tracie Felton - Last Filed: 06/01/18 18:34> Date of Encounter: 06/01/18 Time of Encounter: 11:30 Assessment and Plan (1) DVT (deep venous thrombosis) Status: Chronic Assessment and plan: History of recurrent BLE DVT. Thrombophilia workup has shown positive LA on multiple occasions, however, anti- beta 2 glycoprotein, cardio lipid antibodies are negative. Previously failed Xarelto, faithfully taking Eliquis since July 2017, tolerating well Patient presents with increased LLE pain/edema Venous doppler reveals- findings consistent with a chronic venous thrombosis in the left distal external iliac, left common femoral vein as well as the right common femoral vein were partially compressible. A full RLE venous doppler exam was not performed-this has been ordered for completeness Will need to establish if right common femoral vein is acute-it was previously listed as normal on doppler in February CTA negative for PE Plan: Recommend continuation of Eliquis at discharge as dopplers appear to show chronic thrombosis and veins with partial augmentation Stop bedrest order- allow activity as tolerated Qualifiers: DVT location: lower extremity Affected thrombotic vein of extremity: femoral Chronicity: acute Laterality: left Qualified Code(s): I82.412 - Acute embolism and thrombosis of left femoral vein - Data of Consult Requesting Physician: Joesph Harkins Primary Care Provider: Ward Davis MD - Consult Narrative Reason for consult: DVT History of present illness: Ms. Lopez is a 77 year old female with history of recurrent BLE DVT. Thrombophilia workup has shown positive LA on multiple occasions, however, anti- beta 2 glycoprotein, cardio lipid antibodies are negative. Ms. Lopez has previouslly failed xarelto, and started eliquis since July 2017. She has tolerated eliquis well and reports taking faithfully. She presented to the ER for worsening LLE pain and edema. Final venous doppler report reveals findings consistent with a chronic venous thrombosis in the left distal external iliac and left common femoral vein as well as the right common femoral vein were partially compressible. Comparison from venous doppler from 02/2018 was not positive for thrombosis in the right common femoral, this appears to be an acute finding but will need to be verified. CTA negative for PE. Past Med Surg Social Fam HX - Past Medical History Medical history: DVT, diabetes, hypertension, other Additional medical history: kidney disease. Psychiatric history: anxiety, depression - Past Surgical History Surgical History: non-contributory, carotid endarterectomy, cataract, hysterectomy, splenectomy, other Additional surgical history: heart cath - Social History Smoking Status: Former smoker Smokeless Tobacco Status: No Alcohol use: none Drug use: none - Family History Mother Adopted: No Family Member Ethnicity: Non- Living Status: Hx Family Cardiac Disorders: Yes (HTN) Hx Family Respiratory Disorders: No Hx Family Cancer: No Hx Family GI Disorders: No Hx Family Endocrine Disorder: No Hx Family Neuromuscular Disorders: Yes (CVA) Hx Family Neurologic Disorders: Yes (stroke) Hx Family HEENT Disorders: No Hx Family Autoimmune Disorders: No Father Family Member Ethnicity: Non- Living Status: Hx Family Cardiac Disorders: Yes Maternal Adopted: No Family Member Ethnicity: Non- Living Status: Hx Family Cardiac Disorders: Yes (HTN) Hx Family Respiratory Disorders: No Hx Family Cancer: No Hx Family GI Disorders: No Hx Family Endocrine Disorder: No Hx Family Neuromuscular Disorders: No Hx Family Neurologic Disorders: Yes (CVA) Hx Family HEENT Disorders: No Hx Family Autoimmune Disorders: No Medications and Allergies Atorvastatin Calcium [Lipitor] 20 mg PO HS 01/16/18 [History] Bimatoprost [Lumigan] 1 drop OP DAILY 01/16/18 [History] Buspirone HCl [Buspar] 15 mg PO TID 01/16/18 [History] Cyclosporine [Restasis] 1 drop OP BID 01/16/18 [History] Diphenoxylate/Atropine [Lomotil 2.5 mg/0.025 mg] 1 tab PO TID 01/16/18 [History] Fluticasone Propionate Nasal [Flonase] 1 spr NS DAILY 01/16/18 [History] Loratadine [Allergy Relief] 10 mg PO DAILY 01/16/18 [History] Nitroglycerin [Nitrostat] 0.4 mg SL Q5M PRN 01/16/18 [History] [place]-3 Fatty Acids [Fish Oil] 1,200 mg PO DAILY 01/16/18 [History] Sertraline [Zoloft] 100 mg PO DAILY 01/16/18 [History] hydroCHLOROthiazide [Hydrochlorothiazide] 25 mg PO DAILY 01/16/18 [History] metFORMIN [Glucophage] 1,000 mg PO BIDWM 01/16/18 [History] Omeprazole [PriLOSEC] 40 mg PO DAILY 01/17/18 [History] Lisinopril [Zestril] 20 mg PO DAILY #30 tablet 01/18/18 [Rx] Calcium Carbonate [Tums] 1,000 mg PO QID tab.chew 03/27/18 [Rx] clonazePAM [Klonopin] 0.5 mg PO TID 2 Days #6 tablet 03/27/18 [Rx] Apixaban [Eliquis] 5 mg PO BID #120 tablet 05/16/18 [Rx] Ferrous Sulfate [Iron] 325 mg PO BID 05/31/18 [History] hydrOXYzine pamoate [HydrOXYzine Pamoate] 25 mg PO BID PRN 05/31/18 [History] 3 Allergy/AdvReac Type Severity Reaction Status Date / Time clonidine Allergy Swelling Verified 05/27/18 09:33 of Lip/Tongue/Throat citalopram [From Celexa] AdvReac Hypertensio Verified 05/27/18 09:33 n Constitutional: Absent: anorexia, chills, fatigue, fever(s), weakness, weight loss Eyes: Absent: change in vision Nose, mouth and throat: Absent: dysphagia Cardiovascular: Absent: chest pain Respiratory: Present: dyspnea on exertion. Absent: hemoptysis Gastrointestinal: Absent: change in bowel habits, hematemesis, hematochezia, melena, nausea, vomiting Genitourinary: Absent: dysuria Musculoskeletal: Present: muscle weakness Integumentary: Absent: wounds Neurological: Absent: focal weakness, frequent falls Hematologic/Lymphatic: Present: as per HPI Oncology - Exam - Constitutional Vitals: Temp Pulse Resp BP Pulse Ox 97.5 F L 81 15 177/81 98 06/01/18 10:06 06/01/18 10:06 06/01/18 10:06 06/01/18 10:06 06/01/18 10:06 General appearance: cooperative, no acute distress, thin, no febrile - Head Head exam: Present: atraumatic - ENT ENT exam: Present: mucous membranes moist - Respiratory Respiratory exam: Present: CTAB. Absent: respiratory distress - Cardiovascular Cardiovascular exam: Present: RRR, +S1, +S2 - GI/Abdominal GI/Abdominal exam: Present: normal bowel sounds, soft. Absent: tenderness - Extremities Exam Extremities exam: Absent: calf tenderness Additional comments: patient endorses LLE edema, no appreciable edema on exam - Neurological Exam Neurological exam: Present: alert, oriented X3, no focal deficits, strengths equal and symetr throughout - Psychiatric Psychiatric exam: Present: normal affect, normal mood - Skin Skin exam: Present: dry, intact, normal color, warm Oncology - Results Labs: 3 06/01/18 06/01/18 06/01/18 12:00 09:47 03:55 WBC RBC Hgb Hct MCV MCH MCHC RDW Plt Count MPV Immature Gran % Seg Neutrophils % Lymphocytes % Monocytes % Eosinophils % Basophils % Neutrophils # Lymphocytes # Monocytes # Eosinophils # Basophils # PT 11.6 INR 1.0 APTT 164.1 H* D Heparin Anti-Xa, Unfract 0.40 0.65 Sodium Potassium Chloride Carbon Dioxide BUN Creatinine Est GFR ( Amer) Est GFR (Non-Af Amer) BUN/Creatinine Ratio Glucose Calculated Osmolality Calcium Magnesium Total Bilirubin Direct Bilirubin Indirect Bilirubin AST ALT Alkaline Phosphatase Troponin I Serum Total Protein Albumin Globulin Albumin/Globulin Ratio Urine Color Yellow Urine Clarity Clear Urine pH 7.5 Ur Specific [place]vin 1.025 Urine Protein Negative Urine Glucose (UA) 100 H Urine Ketones Negative Urine Blood Negative Urine Nitrite Negative Urine Bilirubin Negative Urine Urobilinogen Normal Ur Leukocyte Esterase Negative Ur Culture Indicated? NO 3 06/01/18 06/01/18 06/01/18 00:41 00:41 00:41 WBC 5.2 RBC 3.75 L Hgb 12.0 Hct 35.8 MCV 95.5 MCH 32.0 MCHC 33.5 RDW 12.9 Plt Count 256 MPV 10.5 Immature Gran % 0.2 Seg Neutrophils % 43.6 Lymphocytes % 42.7 Monocytes % 7.8 Eosinophils % 4.9 Basophils % 0.8 Neutrophils # 2.3 Lymphocytes # 2.2 Monocytes # 0.4 Eosinophils # 0.3 Basophils # 0.0 PT INR APTT Heparin Anti-Xa, Unfract Sodium 137 Potassium 3.7 Chloride 100 Carbon Dioxide 29 BUN 15 Creatinine 0.69 Est GFR ( Amer) > 60 Est GFR (Non-Af Amer) > 60 BUN/Creatinine Ratio 22 Glucose 224 H Calculated Osmolality 292 Calcium 8.8 Magnesium 1.2 L Total Bilirubin 0.3 Direct Bilirubin 0.1 Indirect Bilirubin 0.2 AST 15 ALT 13 Alkaline Phosphatase 39 Troponin I < 0.03 Serum Total Protein 5.5 L Albumin 3.9 Globulin 1.6 L Albumin/Globulin Ratio 2.4 H Urine Color Urine Clarity Urine pH Ur Specific Melvin Urine Protein Urine Glucose (UA) Urine Ketones Urine Blood Urine Nitrite Urine Bilirubin Urine Urobilinogen Ur Leukocyte Esterase Ur Culture Indicated? Consult Discharge Plan - Plan Referrals: Ward Davis MD [Primary Care Provider] - <Sharmila James - Last Filed: 06/01/18 18:56> Date of Encounter: 06/01/18 - Data of Consult Requesting Physician: Joseph Harkins Primary Care Provider: Ward Davis MD - Consult Narrative History of present illness: I examined this patient and my medical decision-making was reviewed with the Advanced Practice Nurse, Tracie felton. I agree with the documented findings, disposition and treatment plan as described except to the extent set forth below. Oncology - Exam - Constitutional Vitals: Temp Pulse Resp BP Pulse Ox 97.7 F 77 15 166/73 95 06/01/18 14:02 06/01/18 14:02 06/01/18 14:02 06/01/18 14:02 06/01/18 14:02 Oncology - Results Labs: 3 06/01/18 06/01/18 06/01/18 16:09 12:00 09:47 WBC RBC Hgb Hct MCV MCH MCHC RDW Plt Count MPV Immature Gran % Seg Neutrophils % Lymphocytes % Monocytes % Eosinophils % Basophils % Neutrophils # Lymphocytes # Monocytes # Eosinophils # Basophils # PT INR APTT Heparin Anti-Xa, Unfract 0.40 Sodium Potassium Chloride Carbon Dioxide BUN Creatinine Est GFR ( Amer) Est GFR (Non-Af Amer) BUN/Creatinine Ratio Glucose POC Glucose 142 H Calculated Osmolality Calcium Magnesium Total Bilirubin Direct Bilirubin Indirect Bilirubin AST ALT Alkaline Phosphatase Troponin I Serum Total Protein Albumin Globulin Albumin/Globulin Ratio Urine Color Yellow Urine Clarity Clear Urine pH 7.5 Ur Specific [place] 1.025 Urine Protein Negative Urine Glucose (UA) 100 H Urine Ketones Negative Urine Blood Negative Urine Nitrite Negative Urine Bilirubin Negative Urine Urobilinogen Normal Ur Leukocyte Esterase Negative Ur Culture Indicated? NO 3 06/01/18 06/01/18 06/01/18 03:55 00:41 00:41 WBC RBC Hgb Hct MCV MCH MCHC RDW Plt Count MPV Immature Gran % Seg Neutrophils % Lymphocytes % Monocytes % Eosinophils % Basophils % Neutrophils # Lymphocytes # Monocytes # Eosinophils # Basophils # PT 11.6 INR 1.0 APTT 164.1 H* D Heparin Anti-Xa, Unfract 0.65 Sodium 137 Potassium 3.7 Chloride 100 Carbon Dioxide 29 BUN 15 Creatinine 0.69 Est GFR ( Amer) > 60 Est GFR (Non-Af Amer) > 60 BUN/Creatinine Ratio 22 Glucose 224 H POC Glucose Calculated Osmolality 292 Calcium 8.8 Magnesium 1.2 L Total Bilirubin 0.3 Direct Bilirubin 0.1 Indirect Bilirubin 0.2 AST 15 ALT 13 Alkaline Phosphatase 39 Troponin I < 0.03 Serum Total Protein 5.5 L Albumin 3.9 Globulin 1.6 L Albumin/Globulin Ratio 2.4 H Urine Color Urine Clarity Urine pH Ur Specific Melvin Urine Protein Urine Glucose (UA) Urine Ketones Urine Blood Urine Nitrite Urine Bilirubin Urine Urobilinogen Ur Leukocyte Esterase Ur Culture Indicated? 3 06/01/18 00:41 WBC 5.2 RBC 3.75 L Hgb 12.0 Hct 35.8 MCV 95.5 MCH 32.0 MCHC 33.5 RDW 12.9 Plt Count 256 MPV 10.5 Immature Gran % 0.2 Seg Neutrophils % 43.6 Lymphocytes % 42.7 Monocytes % 7.8 Eosinophils % 4.9 Basophils % 0.8 Neutrophils # 2.3 Lymphocytes # 2.2 Monocytes # 0.4 Eosinophils # 0.3 Basophils # 0.0 PT INR APTT Heparin Anti-Xa, Unfract Sodium Potassium Chloride Carbon Dioxide BUN Creatinine Est GFR ( Amer) Est GFR (Non-Af Amer) BUN/Creatinine Ratio Glucose POC Glucose Calculated Osmolality Calcium Magnesium Total Bilirubin Direct Bilirubin Indirect Bilirubin AST ALT Alkaline Phosphatase Troponin I Serum Total Protein Albumin Globulin Albumin/Globulin Ratio Urine Color Urine Clarity Urine pH Ur Specific [place] Urine Protein Urine Glucose (UA) Urine Ketones Urine Blood Urine Nitrite Urine Bilirubin Urine Urobilinogen Ur Leukocyte Esterase Ur Culture Indicated? Inpatient Charges Provider: Dr. Piyush Jamse Consult - Inpatient: [id number]
--- NOTE | 2018-06-01 19:20 | Internal Med Progress Note ---
Hospitalist Progress Note - Encounter Date of Encounter: 06/01/18 Time of Encounter: 11:00 - Subjective Interval History: Patient with left lower leg pain secondary to DVT Patient on heparin drip - Exam Vitals: Temp Pulse Resp BP Pulse Ox 97.5 F L 68 16 166/77 96 06/01/18 19:09 06/01/18 19:09 06/01/18 19:09 06/01/18 19:09 06/01/18 19:09 Exam: Gen.: Nonacute distress, alert and oriented 3 ENT: Mucosal membranes moist Respiratory: Lungs are clear to auscultation bilaterally without any wheezing rhonchi or rales Cardiovascular: Normal S1 and S2 regular rate rhythm no murmurs rubs or gallops Abdomen: Soft, nontender and nondistended with positive bowel sounds Extremities: No lower extremity edema Skin: Normal color - Assessment and Plan (1) Anemia of chronic disease Current Visit: Yes Status: Chronic Assessment and Plan: Will continue longstanding FeSO4. (2) Anxiety Current Visit: Yes Status: Chronic Assessment and Plan: Will continue home meds of hydroxyzine prn and clonazepam TID. (3) HTN (hypertension) Current Visit: Yes Status: Chronic Assessment and Plan: Reasonably controlled. Will resume antihypertensives. (4) Diabetes mellitus Current Visit: Yes Status: Chronic Assessment and Plan: Will place on ISS while hospitalized. Check A1C. (5) HLD (hyperlipidemia) Current Visit: Yes Status: Chronic Assessment and Plan: Resume statin therapy. (6) DVT (deep venous thrombosis) Current Visit: Yes Status: Chronic Assessment and Plan: New onset. Continue heparin gtt consult hematology for recommendations on long-term AC options for her. (7) BMI less than 19,adult Current Visit: Yes Status: Chronic Assessment and Plan: Frail. Protein-caloric malnutrition evident. (8) VTE (venous thromboembolism) Current Visit: Yes Status: Acute Assessment and Plan: Recurring episodes. Seen to have lupus anticoagulant positivity although rest of hypercoagulable work up was unremarkable. Hematology consulted for further recs. - Time Spent with Patient Total time spent is greater than 50% in coordination of care (as documented) at patient's floor/unit and/or counseling patient: Internal Medicine: Result - Labs CBC & Chem 7: 06/01/18 00:41 06/01/18 00:41 Labs: Short CBC 06/01/18 Range/Units 00:41 WBC 5.2 (4.3-11.1) K/mcL Hgb 12.0 (11.5-15.4) g/dL Hct 35.8 (35.3-44.9) % Plt Count 256 (140-400) K/mcL Neutrophils # 2.3 (1.6-8.9) K/mcL BMP 06/01/18 00:41 Sodium 137 Potassium 3.7 Chloride 100 Carbon Dioxide 29 BUN 15 Creatinine 0.69 Glucose 224 H Calcium 8.8 Cardiac Enzymes 06/01/18 Range/Units 00:41 Troponin I < 0.03 (< 0.04) ng/mL Liver Function 06/01/18 Range/Units 00:41 Total Bilirubin 0.3 (0.3-1.0) mg/dL Direct Bilirubin 0.1 (0.0-0.2) mg/dL AST 15 (13-39) Units/L ALT 13 (7-52) Units/L Alkaline Phosphatase 39 (34-104) Units/L Albumin 3.9 (3.5-5.7) g/dL Urine 06/01/18 Range/Units 12:00 Urine Color Yellow (Yellow) Urine Clarity Clear (Clear) Urine pH 7.5 (5.0-8.0) pH Units Ur Specific [place] 1.025 (1.010-1.025) Urine Protein Negative (Neg-Trace) mg/dL Urine Glucose (UA) 100 H (Normal) mg/dL - ABG Interpretation ABG results: PT/INR, D-dimer PT 11.6 Seconds (9.4-12.1) 06/01/18 03:55 Consult Discharge Plan - Plan Referrals: Ward Davis MD [Primary Care Provider] - (3) HTN (hypertension) Qualifiers: Hypertension type: essential hypertension Qualified Code(s): I10 - Essential (primary) hypertension (4) Diabetes mellitus 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 mellitus long-term insulin use: without long-term use Diabetes mellitus complication status: without complication Qualified Code(s): E11.9 - Type 2 diabetes mellitus without complications (5) HLD (hyperlipidemia) Qualifiers: Hyperlipidemia type: pure hypercholesterolemia Qualified Code(s): E78.00 - Pure hypercholesterolemia, unspecified; E78.0 - Pure hypercholesterolemia (6) DVT (deep venous thrombosis) Qualifiers: DVT location: lower extremity Affected thrombotic vein of extremity: femoral Chronicity: acute Laterality: left Qualified Code(s): I82.412 - Acute embolism and thrombosis of left femoral vein
[2018-06-01] MEDS: Heparin 25,000 UNIT/500 ML D5W 25,000 UNIT/500 ML BAG IVC SCH (21:35)
[2018-06-01] MEDS ORDERED: Artificial Tears SOLN 15 ML BOTTLE BOTH EYES SCH (22:15)
[2018-06-02] MEDS: clonazePAM 0.5 MG TABLET PO SCH (07:44)
[2018-06-02] MEDS: Loratadine 10 MG TABLET PO SCH (07:44)
[2018-06-02] MEDS: Lisinopril 20 MG TABLET PO SCH (07:44)
[2018-06-02] MEDS: hydroCHLOROthiazide 25 MG TABLET PO SCH (07:44)
[2018-06-02] MEDS ORDERED: Acetaminophen 325 MG TABLET PO PRN (08:03)
[2018-06-02] MEDS: Latanoprost 2.5 ML BOTTLE BOTH EYES SCH (11:21)
[2018-06-02] MEDS: Fluticasone Propionate Nasal 50 MCG/SPRAY BOTTLE NS SCH (11:21)
[2018-06-02] MEDS: Insulin LISPRO 300 UNITS/3 ML VIAL SQ SCH (11:22)
[2018-06-02] MEDS ORDERED: Apixaban 5 MG TABLET PO SCH (11:45)
--- NOTE | 2018-06-02 12:29 | Discharge Summary ---
- NOTES TO OUTPATIENT PROVIDER Notes to Outpatient Provider: Follow-up with Hematology/oncology Date of Encounter: 06/02/18 Time of Encounter: 11:00 - Discharge Diagnosis (1) Anemia of chronic disease Priority: Primary Status: Chronic (2) Anxiety Priority: Secondary Status: Chronic (3) HTN (hypertension) Priority: Secondary Status: Chronic Qualifiers: Hypertension type: essential hypertension Qualified Code(s): I10 - Essential (primary) hypertension (4) Diabetes mellitus Priority: Secondary Status: Chronic 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 mellitus nursing home insulin use: without nursing home use Diabetes mellitus complication status: without complication Qualified Code(s): E11.9 - Type 2 diabetes mellitus without complications (5) HLD (hyperlipidemia) Priority: Secondary Status: Chronic Qualifiers: Hyperlipidemia type: pure hypercholesterolemia Qualified Code(s): E78.00 - Pure hypercholesterolemia, unspecified; E78.0 - Pure hypercholesterolemia (6) BMI less than 19,adult Priority: Secondary Status: Chronic (7) VTE (venous thromboembolism) Priority: Primary Status: Acute Hospital course: Patient is a 77-year-old female with past medical history significant for heart disease, diabetes mellitus, hypertension, arthritis and bilateral lower extremity DVT in November 2016. She follows with hematology and her labs were negative for FVL mutation, protein C/S anomalies but was found LAC positive on 2 occasions. She was initially on warfarin before being switched to enoxaparin then rivaroxaban but found to have left leg acue thrombosis in 2016 and now is on apixaban. 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 Duplex study confirmed a new DVT finding. During patients hospital stay hematology oncology was consulted with recommendations to place patient back on her home dose of Eliquis. Patient will follow-up with hematology oncology as an outpatient. - Time Spent with Patient Total time spent providing and/or coordinating discharge services: Less than 30 minutes - Discharge Medications Home Medications: Atorvastatin Calcium [Lipitor] 20 mg PO HS 01/16/18 [History] Bimatoprost [Lumigan] 1 drop OP DAILY 01/16/18 [History] Buspirone HCl [Buspar] 15 mg PO TID 01/16/18 [History] Cyclosporine [Restasis] 1 drop OP BID 01/16/18 [History] Diphenoxylate/Atropine [Lomotil 2.5 mg/0.025 mg] 1 tab PO TID 01/16/18 [History] Fluticasone Propionate Nasal [Flonase] 1 spr NS DAILY 01/16/18 [History] Loratadine [Allergy Relief] 10 mg PO DAILY 01/16/18 [History] Nitroglycerin [Nitrostat] 0.4 mg SL Q5M PRN 01/16/18 [History] [place]-3 Fatty Acids [Fish Oil] 1,200 mg PO DAILY 01/16/18 [History] Sertraline [Zoloft] 100 mg PO DAILY 01/16/18 [History] hydroCHLOROthiazide [Hydrochlorothiazide] 25 mg PO DAILY 01/16/18 [History] metFORMIN [Glucophage] 1,000 mg PO BIDWM 01/16/18 [History] Omeprazole [PriLOSEC] 40 mg PO DAILY 01/17/18 [History] Lisinopril [Zestril] 20 mg PO DAILY #30 tablet 01/18/18 [Rx] Calcium Carbonate [Tums] 1,000 mg PO QID tab.chew 03/27/18 [Rx] clonazePAM [Klonopin] 0.5 mg PO TID 2 Days #6 tablet 03/27/18 [Rx] Apixaban [Eliquis] 5 mg PO BID #120 tablet 05/16/18 [Rx] Ferrous Sulfate [Iron] 325 mg PO BID 05/31/18 [History] hydrOXYzine pamoate [HydrOXYzine Pamoate] 25 mg PO BID PRN 05/31/18 [History] Apixaban [Eliquis] 5 mg PO BID tablet 06/02/18 [Rx] Allergies/Adverse Reactions: 3 Allergy/AdvReac Type Severity Reaction Status Date / Time clonidine Allergy Swelling Verified 05/27/18 09:33 of Lip/Tongue/Throat citalopram [From Celexa] AdvReac Hypertensio Verified 05/27/18 09:33 n Date of admission: 05/31/18 23:01 Primary care physician: Ward Davis MD Consults: 06/01/18 05:10 Consult to Nutrition [CONS] Routine Comment: Consulting Provider: NUTRITION Reason for Dietary Consult: MST Score Consult to Pastoral Services [CONS] Routine Comment: - Constitutional Vitals: Temp Pulse Resp BP Pulse Ox 97.6 F 70 15 131/67 98 06/02/18 10:00 06/02/18 10:00 06/02/18 10:00 06/02/18 10:00 06/02/18 10:00 Exam: Gen.: Nonacute distress, alert and oriented 3 Skin: Normal color - Patient Status Disposition: Home, Self-Care Condition: Good - Discharge Instructions Instructions: Deep Venous Thrombosis (GEN) Follow Up With: Ward Davis MD [Primary Care Provider] - 06/08/18 9:15 am
[2018-06-02 14:11] VITALS: BP 126/68
--- NOTE | 2018-06-02 14:44 | Oncology Inp Progress Note ---
Date of Encounter: 06/02/18 Time of Encounter: 12:00 (1) DVT (deep venous thrombosis) Status: Chronic Assessment and plan: History of recurrent BLE DVT. Thrombophilia workup has shown positive LA on multiple occasions, however, anti- beta 2 glycoprotein, cardio lipid antibodies are negative. Previously failed Xarelto, faithfully taking Eliquis since July 2017, tolerating well Patient presents with increased LLE pain/edema Venous doppler reveals- findings consistent with a chronic venous thrombosis in the left distal external iliac, left common femoral vein as well as the right common femoral vein were partially compressible. RLE doppler reveals-Bilateral partially compressible femoral veins, rest of RLE doppler normal CTA negative for PE Plan: Recommend continuation of Eliquis at discharge as dopplers appear to show chronic thrombosis and veins with partial augmentation She will plan to continue to follow up as an outpatient. Plan as above discussed in detail with patient and patients family at bedside Qualifiers: DVT location: lower extremity Affected thrombotic vein of extremity: femoral Chronicity: acute Laterality: left Qualified Code(s): I82.412 - Acute embolism and thrombosis of left femoral vein Oncology: Subj Interval history: Ms. Lopez is doing well. She denies LE pain, SOB, chest pain or any s/s bleeding. She is planning for discharge home today. She has been ambulating about in her room without assistance - Constitutional Vitals: Vital Signs Temp Pulse Resp BP Pulse Ox 06/02/18 14:10 97.7 F 90 15 126/68 96 06/02/18 10:00 97.6 F 70 15 131/67 98 06/02/18 08:44 83 133/62 06/02/18 07:15 97.7 F 79 15 187/91 95 06/02/18 03:25 97.4 F L 74 14 102/51 96 06/01/18 23:24 97.4 F L 62 14 170/78 97 06/01/18 19:09 97.5 F L 68 16 166/77 96 Intake and Output 06/01/18 06/02/18 06/02/18 23:59 07:59 15:59 Intake Total 1017 / 1017 0 / 0 200 / 200 Output Total 1750 / 1750 350 / 350 250 / 250 Balance -733 / -733 -350 / -350 -50 / -50 Intake: IV Fluids 297 / 297 200 / 200 Heparin 25,000 UNIT/500 ML D5W 193 / 193 200 / 200 25,000 unit In 500 ml @ 14 UNIT /KG/HR 12.065 mls/hr IVC .Q24H ROCIO Rx#:[id number] Magnesium Sulfate 2 GM In 0.9 % 104 / 104 Sodium Chloride 100 ML @ 104 mls/hr IVPB ONCE ONE Rx#: [id number] Oral 720 / 720 0 / 0 Output: Urine 1750 / 1750 350 / 350 250 / 250 Other: Meal Dinner Percent of Meal Consumed 100% Weight 43.5 kg Blood Glucose* 309 133 138 Patient Weight 06/02/18 23:59 Weight 43.5 kg General appearance: cooperative, no acute distress, thin, no febrile - Head Head exam: Present: atraumatic - ENT ENT exam: Present: mucous membranes moist - Respiratory Respiratory exam: Present: CTAB. Absent: respiratory distress - Cardiovascular Cardiovascular exam: Present: RRR, +S1, +S2 - GI/Abdominal GI/Abdominal exam: Present: normal bowel sounds, soft. Absent: tenderness - Extremities Exam Extremities exam: Present: normal inspection. Absent: calf tenderness - Neurological Exam Neurological exam: Present: alert, oriented X3, no focal deficits, strengths equal and symetr throughout - Psychiatric Psychiatric exam: Present: normal affect, normal mood - Skin Skin exam: Present: dry, intact, normal color, warm Oncology: Obj Data - Labs CBC & Chem 7: 06/01/18 00:41 06/01/18 00:41 Labs: Laboratory Results - last 24 hr 06/01/18 06/01/18 06/01/18 07:13 10:56 16:09 Heparin Anti-Xa, Unfract POC Glucose 115 H 174 H 142 H Troponin I 06/01/18 06/02/18 06/02/18 20:29 09:11 09:24 Heparin Anti-Xa, Unfract 0.31 POC Glucose 309 H Troponin I < 0.03 - ABG Interpretation ABG results: PT/INR, D-dimer PT 11.6 Seconds (9.4-12.1) 06/01/18 03:55 Consult Discharge Plan - Plan Instructions: Deep Venous Thrombosis (GEN) Referrals: Ward Davis MD [Primary Care Provider] - 06/08/18 9:15 am Inpatient Charges Provider: Tracie Felton CNP Follow up - Inpatient: [id number]
--- NOTE | 2018-06-04 10:50 | Electrocardiograph Report ---
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
== END 2018-06-02 14:35 | disposition home or self-care (01) | DRG 300 ==
LOC: 3ANU 17:33 → EMEROOARM 17:33 → 3ANU 21:55 → SUATTDRO 23:01
PROVIDERS: ADMIT Internal Medicine; ATTEND Hospitalist

== ENCOUNTER 2019-11-03 15:52 | Inpatient (IN) ==
[2019-11-03 16:38] LABS: Activated Partial Thrombo Time 67.6 Seconds (26.0-36.0)
[2019-11-03 16:41] LABS: Basophils % 0.3 %; Eosinophils # 0.3 K/mcL (0.0-0.6); Eosinophils % 4.3 %; Hematocrit 31.4 % (35.3-44.9); Hemoglobin 10.4 g/dL (11.5-15.4); Immature Granulocytes % 0.4 % (0-4); Lymphocytes # 1.1 K/mcL (0.6-4.6); Lymphocytes % 16.9 %; Mean Corpuscular HGB Conc 33.1 g/dL (31.6-35.5); Mean Corpuscular Hemoglobin 31.8 pg (28.0-33.3); Mean Platelet Volume 9.7 fL (9.4-12.4); Monocytes # 0.5 K/mcL (0.0-1.3); Monocytes % 7.3 %; Neutrophils # 4.7 K/mcL (1.6-8.9); Platelet Count 350 K/mcL (140-400); Red Blood Count 3.27 M/mcL (3.82-4.97); Red Cell Distribution Width 12.9 % (11.5-14.5); Segmented Neutrophils % 70.8 %; White Blood Count 6.7 K/mcL (4.3-11.1)
[2019-11-03 16:47] LABS: INR 8.4
[2019-11-03 17:14] LABS: Alanine Aminotransferase 12 Units/L (7-52); Albumin 3.4 g/dL (3.5-5.7); Alkaline Phosphatase 43 Units/L (34-104); Aspartate Amino Transferase 14 Units/L (13-39); BUN/Creatinine Ratio 26 (6-26); Bilirubin,Indirect 0.2 mg/dL (0.0-1.0); Bilirubin,Total 0.2 mg/dL (0.3-1.0); Blood Urea Nitrogen 20 mg/dL (8-23); Calcium 7.1 mg/dL (8.6-10.3); Carbon Dioxide 19 mEq/L (23-29); Chloride 97 mEq/L (98-107); Ethanol < 10 mg/dL (Less than 10); Globulin 1.7 g/dL (2.4-3.5); Glucose 150 mg/dL (70-105); Osmolality,Calculated 273 (280-300); Potassium 3.2 mEq/L (3.5-5.1); Sodium 129 mEq/L (136-145); Total Protein 5.1 g/dL (6.4-8.9); Troponin I < 0.03 ng/mL (< 0.04); eGFR For African Americans > 60 (> 60); eGFR For Non-African Americans > 60 (> 60)
[2019-11-03] MEDS ORDERED: *HR* Phytonadione 5 MG TABLET PO ONE (17:34)
[2019-11-03] MEDS ORDERED: Potassium Chloride Elixir 20 MEQ/15 ML UDC PO ONE (17:41)
[2019-11-03 17:54] LABS: Prothrombin Time 91.7 Seconds (9.4-12.1)
[2019-11-03] MEDS ORDERED: Ondansetron 4 MG/2 ML VIAL IVP PRN (18:18)
[2019-11-03] MEDS ORDERED: Naloxone 0.4 MG/ML INJ IVP PRN (18:18)
[2019-11-03] MEDS ORDERED: *HR* Promethazine 25 MG/ML VIAL IVP PRN (18:18)
[2019-11-03] MEDS ORDERED: Dextrose Gel 15 GM/37.5 ML TUBE PO PRN ×2 (18:34)
[2019-11-03] MEDS ORDERED: *HR* Dextrose 50 % in Water (Syg) 50 ML SYRINGE IVP PRN (18:34)
[2019-11-03] MEDS ORDERED: D5% in Water 1,000 ML IVC PRN (18:34)
[2019-11-03 18:45] LABS: Hematocrit 35.4 % (35.3-44.9); Hemoglobin 11.8 g/dL (11.5-15.4)
[2019-11-03 18:54] LABS: Bilirubin,Urine Small (Negative); Blood,Urine Negative (Negative); Clarity,Urine Clear (Clear); Color,Urine Yellow (Yellow); Glucose,Urine (UA) Normal (Normal); Ketones,Urine Negative (Negative); Leukocyte Esterase,Urine Trace (Negative); Nitrite,Urine Negative (Negative); PH,Urine 5.5 pH Units (5.0-8.0); Protein,Urine Trace mg/dL (Neg-Trace); Specific Gravity,Urine 1.019 (1.010-1.025); Urobilinogen,Urine Normal (Normal)
[2019-11-03 18:55] LABS: Bacteria,Urine None Seen per hpf (None-Few); Hyaline Casts,Urine None Seen per lpf (None-Few); RBC,Urine 0-3 per hpf (0-3); Squamous Epithelial Cell,Urine Moderate per lpf (None-Few)
[2019-11-03 19:08] LABS: Amphetamine Screen,Urine Negative ng/mL (Cutoff=1000); Barbiturate Screen,Urine Negative ng/mL (Cutoff=200); Benzodiazepines Screen,Urine Positive ng/mL (Cutoff=200); Cannabinoid Screen,Urine Negative ng/mL (Cutoff = 50); Cocaine Screen,Urine Negative ng/mL (Cutoff= 300); Opiate Screen,Urine Positive ng/mL (Cutoff=300); Phencyclidine Screen,Urine Negative ng/mL (Cutoff=25)
[2019-11-03] MEDS: Budesonide/Formoterol 160/4.5 1 PUFF INH IH SCH (20:18)
[2019-11-03] MEDS: Pantoprazole 40 MG VIAL IVP SCH (21:04)
[2019-11-03] MEDS: clonazePAM 0.5 MG TABLET PO SCH (21:04)
[2019-11-03] MEDS: lisinopriL 20 MG TABLET PO SCH (21:04)
[2019-11-03] MEDS ORDERED: Saline Nasal Spray 44 ML BOTTLE NS PRN (21:18)
[2019-11-03] MEDS: Insulin LISPRO 300 UNITS/3 ML VIAL SQ SCH (22:07)
[2019-11-03] MEDS: Chloraseptic Spray 177 ML BOTTLE MM PRN (23:54)
[2019-11-04 01:18] LABS: Hematocrit 30.2 % (35.3-44.9); Hemoglobin 10.3 g/dL (11.5-15.4); Mean Corpuscular HGB Conc 34.1 g/dL (31.6-35.5); Mean Corpuscular Volume 93.8 fL (83.0-100.0); Mean Platelet Volume 9.5 fL (9.4-12.4); Platelet Count 324 K/mcL (140-400); Red Blood Count 3.22 M/mcL (3.82-4.97); Red Cell Distribution Width 12.8 % (11.5-14.5); White Blood Count 5.8 K/mcL (4.3-11.1)
[2019-11-04 01:26] LABS: Activated Partial Thrombo Time 52.7 Seconds (26.0-36.0)
[2019-11-04 01:28] LABS: INR 3.3; Prothrombin Time 37.6 Seconds (9.4-12.1)
[2019-11-04 01:29] LABS: BUN/Creatinine Ratio 29 (6-26); Blood Urea Nitrogen 18 mg/dL (8-23); Calcium 7.7 mg/dL (8.6-10.3); Carbon Dioxide 26 mEq/L (23-29); Chloride 96 mEq/L (98-107); Glucose 112 mg/dL (70-105); Osmolality,Calculated 267 (280-300); Sodium 127 mEq/L (136-145); eGFR For African Americans > 60 (> 60); eGFR For Non-African Americans > 60 (> 60)
[2019-11-04] MEDS: 0.9 % Sodium Chloride 1,000 ML IVC SCH ×2 (03:38→16:37)
[2019-11-04] MEDS: Pantoprazole 40 MG VIAL IVP SCH ×2 (05:54→17:11)
[2019-11-04] MEDS: Budesonide/Formoterol 160/4.5 1 PUFF INH IH SCH ×2 (07:03→20:06)
[2019-11-04] MEDS ORDERED: lisinopriL 20 MG TABLET ONE (09:00)
[2019-11-04] MEDS ORDERED: clonazePAM 0.5 MG TABLET ONE (09:00)
[2019-11-04] MEDS ORDERED: hydroCHLOROthiazide 25 MG TABLET ONE (09:00)
[2019-11-04] MEDS: Insulin LISPRO 300 UNITS/3 ML VIAL SQ SCH ×2 (16:37→21:04)
[2019-11-04] MEDS: lisinopriL 20 MG TABLET PO SCH ×2 (16:40→21:05)
[2019-11-04] MEDS: clonazePAM 0.5 MG TABLET PO SCH ×2 (16:43→21:05)
[2019-11-04] MEDS: hydroCHLOROthiazide 25 MG TABLET PO SCH (16:43)
[2019-11-04] MEDS ORDERED: Latanoprost 2.5 ML BOTTLE BOTH EYES SCH (21:00)
[2019-11-04] MEDS: Chloraseptic Spray 177 ML BOTTLE MM PRN (21:13)
[2019-11-05 01:02] LABS: Prolactin 13.2 ng/mL (3.80-23.20)
[2019-11-05 01:50] LABS: Hematocrit 30.4 % (35.3-44.9); Hemoglobin 10.1 g/dL (11.5-15.4); Mean Corpuscular HGB Conc 33.2 g/dL (31.6-35.5); Mean Corpuscular Hemoglobin 31.6 pg (28.0-33.3); Mean Platelet Volume 9.4 fL (9.4-12.4); Platelet Count 302 K/mcL (140-400); White Blood Count 5.3 K/mcL (4.3-11.1)
[2019-11-05 02:08] LABS: BUN/Creatinine Ratio 21 (6-26); Blood Urea Nitrogen 12 mg/dL (8-23); Calcium 7.9 mg/dL (8.6-10.3); Carbon Dioxide 29 mEq/L (23-29); Chloride 101 mEq/L (98-107); Glucose 150 mg/dL (70-105); Osmolality,Calculated 281 (280-300); Potassium 3.7 mEq/L (3.5-5.1); Sodium 134 mEq/L (136-145); eGFR For African Americans > 60 (> 60); eGFR For Non-African Americans > 60 (> 60)
[2019-11-05] MEDS: (Cyclosporine [Restasis] 1 DROP) OP SCH ×2 (02:24→11:56)
[2019-11-05] MEDS: Pantoprazole 40 MG VIAL IVP SCH (05:37)
[2019-11-05 07:24] VITALS: BP 181/83
[2019-11-05] MEDS: 0.9 % Sodium Chloride 1,000 ML IVC SCH (07:46)
[2019-11-05] MEDS: clonazePAM 0.5 MG TABLET PO SCH (07:49)
[2019-11-05] MEDS: hydroCHLOROthiazide 25 MG TABLET PO SCH (07:50)
[2019-11-05] MEDS: Insulin LISPRO 300 UNITS/3 ML VIAL SQ SCH (07:50)
[2019-11-05] MEDS: lisinopriL 20 MG TABLET PO SCH (07:50)
[2019-11-05] MEDS ORDERED: amLODIPine 5 MG TABLET PO SCH (09:00)
[2019-11-05 09:08] LABS: Activated Partial Thrombo Time 37.9 Seconds (26.0-36.0); INR 1.1; Prothrombin Time 12.4 Seconds (9.4-12.1)
[2019-11-05] MEDS: Budesonide/Formoterol 160/4.5 1 PUFF INH IH SCH (10:50)
[2019-11-05] MEDS ORDERED: *HR* Warfarin 5 MG TABLET PO ONE (11:36)
[2019-11-05] MEDS ORDERED: Warfarin perPT PO PRN (18:00)
== END 2019-11-05 12:22 | disposition home or self-care (01) | DRG 378 ==
LOC: EMEROOARM 15:52 → 2ANU 15:52 → SUATTDRO 18:26 → 2ANU 19:05
PROVIDERS: ADMIT Family Medicine; ATTEND Family Medicine

== ENCOUNTER 2019-11-09 09:55 | Inpatient (IN) ==
[2019-11-09 10:29] LABS: Basophils % 0.6 %; Eosinophils # 0.2 K/mcL (0.0-0.6); Eosinophils % 3.7 %; Hematocrit 30.7 % (35.3-44.9); Hemoglobin 10.5 g/dL (11.5-15.4); Immature Granulocytes % 0.2 % (0-4); Lymphocytes # 0.8 K/mcL (0.6-4.6); Lymphocytes % 17.7 %; Mean Corpuscular HGB Conc 34.2 g/dL (31.6-35.5); Mean Corpuscular Volume 93.6 fL (83.0-100.0); Mean Platelet Volume 9.7 fL (9.4-12.4); Monocytes # 0.3 K/mcL (0.0-1.3); Monocytes % 6.7 %; Neutrophils # 3.3 K/mcL (1.6-8.9); Platelet Count 321 K/mcL (140-400); Red Blood Count 3.28 M/mcL (3.82-4.97); Red Cell Distribution Width 12.7 % (11.5-14.5); Segmented Neutrophils % 71.1 %; White Blood Count 4.6 K/mcL (4.3-11.1)
[2019-11-09 10:33] LABS: INR 1.4; Prothrombin Time 15.9 Seconds (9.4-12.1)
[2019-11-09 10:49] LABS: Alanine Aminotransferase 12 Units/L (7-52); Albumin 3.7 g/dL (3.5-5.7); Albumin/Globulin Ratio 1.8 (1.1-2.2); Alkaline Phosphatase 44 Units/L (34-104); Aspartate Amino Transferase 14 Units/L (13-39); BUN/Creatinine Ratio 20 (6-26); Bilirubin,Total 0.3 mg/dL (0.3-1.0); Blood Urea Nitrogen 12 mg/dL (8-23); Calcium 8.1 mg/dL (8.6-10.3); Carbon Dioxide 23 mEq/L (23-29); Chloride 100 mEq/L (98-107); Globulin 2.1 g/dL (2.4-3.5); Glucose 152 mg/dL (70-105); Osmolality,Calculated 275 (280-300); Potassium 3.7 mEq/L (3.5-5.1); Sodium 131 mEq/L (136-145); Total Protein 5.8 g/dL (6.4-8.9); eGFR For African Americans > 60 (> 60); eGFR For Non-African Americans > 60 (> 60)
[2019-11-09 10:57] LABS: Troponin I < 0.03 ng/mL (< 0.04)
[2019-11-09 11:03] LABS: Bilirubin,Urine Negative (Negative); Blood,Urine Negative (Negative); Clarity,Urine Clear (Clear); Color,Urine Yellow (Yellow); Glucose,Urine (UA) Normal (Normal); Ketones,Urine Negative (Negative); Leukocyte Esterase,Urine Negative (Negative); Nitrite,Urine Negative (Negative); Protein,Urine 100 mg/dL (Neg-Trace); Specific Gravity,Urine 1.017 (1.010-1.025); Urobilinogen,Urine Normal (Normal)
[2019-11-09 11:06] LABS: Bacteria,Urine None Seen per hpf (None-Few); Hyaline Casts,Urine None Seen per lpf (None-Few); RBC,Urine 0-3 per hpf (0-3); Squamous Epithelial Cell,Urine Moderate per lpf (None-Few); WBC,Urine 0-3 per hpf (0-3)
[2019-11-09] MEDS ORDERED: Naloxone 0.4 MG/ML INJ IVP PRN (12:31)
[2019-11-09] MEDS ORDERED: 0.9 % Sodium Chloride 1,000 ML IVC SCH (12:45)
[2019-11-09] MEDS: amLODIPine 5 MG TABLET PO SCH (13:42)
[2019-11-09] MEDS ORDERED: *HR* Dextrose 50 % in Water (Syg) 50 ML SYRINGE IVP PRN (14:27)
[2019-11-09] MEDS ORDERED: Dextrose Gel 15 GM/37.5 ML TUBE PO PRN ×2 (14:27)
[2019-11-09] MEDS ORDERED: D5% in Water 1,000 ML IVC PRN (14:27)
[2019-11-09] MEDS: lisinopriL 20 MG TABLET PO SCH ×2 (14:44→14:49)
[2019-11-09] MEDS: clonazePAM 0.5 MG TABLET PO SCH ×2 (14:48→21:58)
[2019-11-09] MEDS: Insulin LISPRO 300 UNITS/3 ML VIAL SQ SCH ×2 (16:54→22:16)
[2019-11-09] MEDS: *HR* Enoxaparin 40 MG/0.4 ML SYRINGE SQ SCH (16:58)
[2019-11-09] MEDS ORDERED: Warfarin perPT PO PRN (18:00)
[2019-11-09] MEDS ORDERED: *HR* Warfarin 2.5 MG TABLET PO ONE (18:00)
[2019-11-09] MEDS: Budesonide/Formoterol 160/4.5 1 PUFF INH IH SCH (20:31)
[2019-11-09] MEDS ORDERED: (Cyclosporine [Restasis] 1 DROP) OP SCH (21:00)
[2019-11-09] MEDS ORDERED: lisinopriL 20 MG TABLET PO SCH (21:00)
[2019-11-09] MEDS ORDERED: Morphine Sulfate 2 MG/ML SYRINGE IVP ONE (21:51)
[2019-11-09] MEDS: Latanoprost 2.5 ML BOTTLE BOTH EYES SCH (22:11)
[2019-11-09] MEDS: CLEAR EYES NATURAL TEARS 15 ML BOTTLE BOTH EYES SCH (22:11)
[2019-11-10 05:55] LABS: INR 1.5; Prothrombin Time 17.5 Seconds (9.4-12.1)
[2019-11-10 06:14] LABS: BUN/Creatinine Ratio 20 (6-26); Blood Urea Nitrogen 12 mg/dL (8-23); Calcium 7.9 mg/dL (8.6-10.3); Carbon Dioxide 27 mEq/L (23-29); Chloride 104 mEq/L (98-107); Glucose 147 mg/dL (70-105); Magnesium 1.4 mg/dL (1.6-2.6); Osmolality,Calculated 286 (280-300); Phosphorous 3.7 mg/dL (2.7-4.5); Potassium 3.5 mEq/L (3.5-5.1); Sodium 137 mEq/L (136-145); eGFR For African Americans > 60 (> 60); eGFR For Non-African Americans > 60 (> 60)
[2019-11-10] MEDS: *HR* Enoxaparin 40 MG/0.4 ML SYRINGE SQ SCH ×3 (06:28→20:39)
[2019-11-10] MEDS: Budesonide/Formoterol 160/4.5 1 PUFF INH IH SCH ×2 (07:57→22:45)
[2019-11-10] MEDS: Insulin LISPRO 300 UNITS/3 ML VIAL SQ SCH ×4 (08:18→20:45)
[2019-11-10] MEDS: clonazePAM 0.5 MG TABLET PO SCH ×3 (08:25→20:38)
[2019-11-10] MEDS: Loratadine 10 MG TABLET PO SCH (08:25)
[2019-11-10] MEDS: lisinopriL 20 MG TABLET PO SCH ×2 (08:25→20:38)
[2019-11-10] MEDS: CLEAR EYES NATURAL TEARS 15 ML BOTTLE BOTH EYES SCH ×2 (08:31→20:46)
[2019-11-10] MEDS: amLODIPine 5 MG TABLET PO SCH (08:35)
[2019-11-10] MEDS ORDERED: Ketorolac 15 MG/ML VIAL IVP ONE (11:59)
[2019-11-10] MEDS: *HR* Warfarin 5 MG TABLET PO ONE ×2 (18:15→18:17)
[2019-11-10] MEDS ORDERED: clonazePAM 0.5 MG TABLET PO PRN (19:19)
[2019-11-10] MEDS: Latanoprost 2.5 ML BOTTLE BOTH EYES SCH (20:45)
[2019-11-11 01:13] LABS: Basophils % 0.5 %; Eosinophils # 0.4 K/mcL (0.0-0.6); Eosinophils % 7.8 %; Hematocrit 30.1 % (35.3-44.9); Hemoglobin 9.9 g/dL (11.5-15.4); Immature Granulocytes % 0.4 % (0-4); Lymphocytes # 1.7 K/mcL (0.6-4.6); Mean Corpuscular HGB Conc 32.9 g/dL (31.6-35.5); Mean Corpuscular Hemoglobin 31.5 pg (28.0-33.3); Mean Corpuscular Volume 95.9 fL (83.0-100.0); Mean Platelet Volume 9.7 fL (9.4-12.4); Monocytes # 0.5 K/mcL (0.0-1.3); Monocytes % 8.2 %; Neutrophils # 2.9 K/mcL (1.6-8.9); Platelet Count 278 K/mcL (140-400); Red Blood Count 3.14 M/mcL (3.82-4.97); Segmented Neutrophils % 52.1 %; White Blood Count 5.5 K/mcL (4.3-11.1)
[2019-11-11 01:14] LABS: INR 1.6; Prothrombin Time 18.6 Seconds (9.4-12.1)
[2019-11-11 01:27] LABS: Blood Urea Nitrogen 12 mg/dL (8-23); Calcium 8.5 mg/dL (8.6-10.3); Carbon Dioxide 27 mEq/L (23-29); Chloride 102 mEq/L (98-107); Glucose 130 mg/dL (70-105); Osmolality,Calculated 282 (280-300); Potassium 3.7 mEq/L (3.5-5.1); Sodium 135 mEq/L (136-145)
[2019-11-11 01:45] LABS: BUN/Creatinine Ratio 19 (6-26); eGFR For African Americans > 60 (> 60); eGFR For Non-African Americans > 60 (> 60)
[2019-11-11] MEDS: *HR* Enoxaparin 40 MG/0.4 ML SYRINGE SQ SCH ×2 (06:30→16:53)
[2019-11-11] MEDS: Insulin LISPRO 300 UNITS/3 ML VIAL SQ SCH ×4 (07:38→20:13)
[2019-11-11] MEDS: clonazePAM 0.5 MG TABLET PO SCH ×3 (08:26→20:12)
[2019-11-11] MEDS: amLODIPine 5 MG TABLET PO SCH (08:26)
[2019-11-11] MEDS: lisinopriL 20 MG TABLET PO SCH ×2 (08:27→20:12)
[2019-11-11] MEDS: CLEAR EYES NATURAL TEARS 15 ML BOTTLE BOTH EYES SCH ×2 (08:27→20:13)
[2019-11-11] MEDS: Loratadine 10 MG TABLET PO SCH (08:27)
[2019-11-11 08:43] LABS: Creatine Kinase 42 Units/L (30-223)
[2019-11-11] MEDS: Budesonide/Formoterol 160/4.5 1 PUFF INH IH SCH ×2 (08:49→20:00)
[2019-11-11] MEDS ORDERED: *HR* Warfarin 5 MG TABLET PO ONE (18:00)
[2019-11-11] MEDS: Latanoprost 2.5 ML BOTTLE BOTH EYES SCH (20:13)
[2019-11-12 05:56] LABS: INR 1.5; Prothrombin Time 17.5 Seconds (9.4-12.1)
[2019-11-12 05:58] LABS: Basophils % 0.4 %; Eosinophils # 0.4 K/mcL (0.0-0.6); Eosinophils % 7.5 %; Hematocrit 28.8 % (35.3-44.9); Hemoglobin 9.4 g/dL (11.5-15.4); Immature Granulocytes % 0.4 % (0-4); Mean Corpuscular HGB Conc 32.6 g/dL (31.6-35.5); Mean Platelet Volume 10.4 fL (9.4-12.4); Monocytes # 0.5 K/mcL (0.0-1.3); Monocytes % 9.2 %; Neutrophils # 3.4 K/mcL (1.6-8.9); Platelet Count 263 K/mcL (140-400); Red Blood Count 2.94 M/mcL (3.82-4.97); Red Cell Distribution Width 13.2 % (11.5-14.5); Segmented Neutrophils % 63.5 %; White Blood Count 5.3 K/mcL (4.3-11.1)
[2019-11-12 06:15] LABS: BUN/Creatinine Ratio 29 (6-26); Blood Urea Nitrogen 17 mg/dL (8-23); Calcium 8.5 mg/dL (8.6-10.3); Carbon Dioxide 29 mEq/L (23-29); Chloride 103 mEq/L (98-107); Glucose 137 mg/dL (70-105); Osmolality,Calculated 288 (280-300); Potassium 3.8 mEq/L (3.5-5.1); Sodium 137 mEq/L (136-145); eGFR For African Americans > 60 (> 60); eGFR For Non-African Americans > 60 (> 60)
[2019-11-12] MEDS: *HR* Enoxaparin 40 MG/0.4 ML SYRINGE SQ SCH ×2 (06:16→16:36)
[2019-11-12] MEDS: Insulin LISPRO 300 UNITS/3 ML VIAL SQ SCH ×4 (07:31→21:50)
[2019-11-12] MEDS: Budesonide/Formoterol 160/4.5 1 PUFF INH IH SCH ×2 (08:20→20:25)
[2019-11-12] MEDS: amLODIPine 5 MG TABLET PO SCH (08:44)
[2019-11-12] MEDS: clonazePAM 0.5 MG TABLET PO SCH ×3 (08:44→19:38)
[2019-11-12] MEDS: lisinopriL 20 MG TABLET PO SCH ×2 (08:45→19:39)
[2019-11-12] MEDS: Loratadine 10 MG TABLET PO SCH (08:45)
[2019-11-12] MEDS: CLEAR EYES NATURAL TEARS 15 ML BOTTLE BOTH EYES SCH ×2 (08:46→19:39)
[2019-11-12] MEDS ORDERED: Gadolinium Contrast Agent (WT Based) IV PRN (13:39)
[2019-11-12] MEDS ORDERED: *HR* Warfarin 5 MG TABLET PO ONE (18:00)
[2019-11-12] MEDS: Latanoprost 2.5 ML BOTTLE BOTH EYES SCH (19:39)
[2019-11-13 01:08] LABS: Basophils % 0.4 %; Eosinophils # 0.5 K/mcL (0.0-0.6); Eosinophils % 8.8 %; Hematocrit 28.6 % (35.3-44.9); Hemoglobin 9.4 g/dL (11.5-15.4); Immature Granulocytes % 0.5 % (0-4); Lymphocytes # 1.3 K/mcL (0.6-4.6); Lymphocytes % 23.7 %; Mean Corpuscular HGB Conc 32.9 g/dL (31.6-35.5); Mean Corpuscular Hemoglobin 32.6 pg (28.0-33.3); Mean Corpuscular Volume 99.3 fL (83.0-100.0); Mean Platelet Volume 10.3 fL (9.4-12.4); Monocytes # 0.5 K/mcL (0.0-1.3); Neutrophils # 3.2 K/mcL (1.6-8.9); Platelet Count 241 K/mcL (140-400); Red Blood Count 2.88 M/mcL (3.82-4.97); Red Cell Distribution Width 13.2 % (11.5-14.5); Segmented Neutrophils % 57.6 %; White Blood Count 5.6 K/mcL (4.3-11.1)
[2019-11-13 01:10] LABS: INR 1.4; Prothrombin Time 15.7 Seconds (9.4-12.1)
[2019-11-13 01:29] LABS: BUN/Creatinine Ratio 34 (6-26); Blood Urea Nitrogen 20 mg/dL (8-23); Calcium 8.5 mg/dL (8.6-10.3); Carbon Dioxide 29 mEq/L (23-29); Chloride 102 mEq/L (98-107); Glucose 157 mg/dL (70-105); Osmolality,Calculated 288 (280-300); Sodium 136 mEq/L (136-145); eGFR For African Americans > 60 (> 60); eGFR For Non-African Americans > 60 (> 60)
[2019-11-13] MEDS: *HR* Enoxaparin 40 MG/0.4 ML SYRINGE SQ SCH (05:01)
[2019-11-13] MEDS: Budesonide/Formoterol 160/4.5 1 PUFF INH IH SCH (07:24)
[2019-11-13] MEDS: Loratadine 10 MG TABLET PO SCH (09:07)
[2019-11-13] MEDS: clonazePAM 0.5 MG TABLET PO SCH (09:08)
[2019-11-13] MEDS: amLODIPine 5 MG TABLET PO SCH (09:08)
[2019-11-13] MEDS: lisinopriL 20 MG TABLET PO SCH (09:08)
[2019-11-13] MEDS: CLEAR EYES NATURAL TEARS 15 ML BOTTLE BOTH EYES SCH (09:09)
[2019-11-13] MEDS: Insulin LISPRO 300 UNITS/3 ML VIAL SQ SCH ×2 (09:09→11:00)
[2019-11-13] MEDS ORDERED: 0.9 % Sodium Chloride 250 ML IVC ONE (11:51)
[2019-11-13 12:31] VITALS: BP 100/50
[2019-11-13] MEDS ORDERED: *HR* Warfarin 7.5 MG TABLET PO ONE (18:00)
== END 2019-11-13 15:01 | disposition home health service (06) | DRG 641 ==
LOC: 2ANU 09:55 → EMEROOARM 09:55 → 2ANU 12:03
PROVIDERS: ADMIT Internal Medicine; ATTEND Internal Medicine

== ENCOUNTER 2020-06-22 18:46 | Inpatient (IN) ==
[2020-06-22] MEDS ORDERED: cloNIDine HCL 0.1 MG TABLET PO ONE (20:10)
[2020-06-22] MEDS ORDERED: amLODIPine 5 MG TABLET PO STA (20:19)
[2020-06-22 20:24] LABS: Bilirubin,Urine Negative (Negative); Blood,Urine Negative (Negative); Clarity,Urine Clear (Clear); Color,Urine Colorless (Yellow); Glucose,Urine (UA) Normal (Normal); Ketones,Urine Negative (Negative); Leukocyte Esterase,Urine Negative (Negative); Nitrite,Urine Negative (Negative); PH,Urine 6.5 pH Units (5.0-8.0); Protein,Urine Negative (Neg-Trace); Specific Gravity,Urine 1.007 (1.010-1.025); Urobilinogen,Urine Normal (Normal)
[2020-06-22 20:30] LABS: Basophils # 0.1 K/mcL (0.0-0.2); Basophils % 0.7 %; Eosinophils # 0.4 K/mcL (0.0-0.6); Eosinophils % 4.9 %; Hematocrit 39.9 % (35.3-44.9); Immature Granulocytes % 0.3 % (0-4); Lymphocytes # 1.9 K/mcL (0.6-4.6); Lymphocytes % 26.4 %; Mean Corpuscular HGB Conc 32.6 g/dL (31.6-35.5); Mean Corpuscular Hemoglobin 32.3 pg (28.0-33.3); Mean Corpuscular Volume 99.3 fL (83.0-100.0); Mean Platelet Volume 9.9 fL (9.4-12.4); Monocytes # 0.5 K/mcL (0.0-1.3); Monocytes % 7.3 %; Neutrophils # 4.4 K/mcL (1.6-8.9); Platelet Count 325 K/mcL (140-400); Red Blood Count 4.02 M/mcL (3.82-4.97); Segmented Neutrophils % 60.4 %; White Blood Count 7.3 K/mcL (4.3-11.1)
[2020-06-22 20:36] LABS: INR 2.1; Prothrombin Time 24.1 Seconds (9.4-12.1)
[2020-06-22 20:37] LABS: Amphetamine Screen,Urine Negative ng/mL (Cutoff=1000); Barbiturate Screen,Urine Negative ng/mL (Cutoff=200); Benzodiazepines Screen,Urine Negative ng/mL (Cutoff=200); Cannabinoid Screen,Urine Negative ng/mL (Cutoff = 50); Cocaine Screen,Urine Negative ng/mL (Cutoff= 300); Opiate Screen,Urine Negative ng/mL (Cutoff=300); Phencyclidine Screen,Urine Negative ng/mL (Cutoff=25)
[2020-06-22 20:39] LABS: Activated Partial Thrombo Time 71.9 Seconds (26.0-36.0)
[2020-06-22 20:55] LABS: Alanine Aminotransferase 11 Units/L (7-52); Albumin 4.6 g/dL (3.5-5.7); Alkaline Phosphatase 31 Units/L (34-104); Aspartate Amino Transferase 15 Units/L (13-39); BUN/Creatinine Ratio 26 (6-26); Bilirubin,Direct 0.1 mg/dL (0.0-0.2); Bilirubin,Indirect 0.4 mg/dL (0.0-1.0); Bilirubin,Total 0.5 mg/dL (0.3-1.0); Blood Urea Nitrogen 18 mg/dL (8-23); Calcium 9.1 mg/dL (8.6-10.3); Carbon Dioxide 28 mEq/L (23-29); Chloride 98 mEq/L (98-107); Ethanol < 10 mg/dL (Less than 10); Globulin 2.3 g/dL (2.4-3.5); Glucose 109 mg/dL (70-105); Osmolality,Calculated 282 (280-300); Potassium 3.1 mEq/L (3.5-5.1); Sodium 135 mEq/L (136-145); Total Protein 6.9 g/dL (6.4-8.9); Troponin I < 0.03 ng/mL (< 0.04); eGFR For African Americans > 60 (> 60); eGFR For Non-African Americans > 60 (> 60)
[2020-06-22 21:07] LABS: Thyroid Stimulating Hormone 1.169 mcIU/mL (0.340-5.600)
[2020-06-22] MEDS ORDERED: *HR* Labetalol 20 MG/4 ML SYRINGE IVP ONE (21:59)
[2020-06-23] MEDS ORDERED: Naloxone 0.4 MG/ML INJ IVP PRN (00:49)
[2020-06-23] MEDS ORDERED: Dextrose Gel 15 GM/37.5 ML TUBE PO PRN ×2 (00:52)
[2020-06-23] MEDS ORDERED: D5% in Water 1,000 ML IVC PRN (00:52)
[2020-06-23] MEDS ORDERED: *HR* Dextrose 50 % in Water (Vial) 50 ML VIAL IVP PRN (00:52)
[2020-06-23] MEDS: lisinopriL 20 MG TABLET PO SCH ×3 (01:45→21:01)
[2020-06-23] MEDS: Insulin LISPRO 300 UNITS/3 ML VIAL SQ SCH ×4 (05:36→21:03)
[2020-06-23 06:14] LABS: Hematocrit 36.9 % (35.3-44.9); Hemoglobin 12.2 g/dL (11.5-15.4); Mean Corpuscular HGB Conc 33.1 g/dL (31.6-35.5); Mean Corpuscular Hemoglobin 33.2 pg (28.0-33.3); Mean Corpuscular Volume 100.3 fL (83.0-100.0); Mean Platelet Volume 10.5 fL (9.4-12.4); Platelet Count 268 K/mcL (140-400); Red Blood Count 3.68 M/mcL (3.82-4.97); Red Cell Distribution Width 12.9 % (11.5-14.5); White Blood Count 4.5 K/mcL (4.3-11.1)
[2020-06-23] MEDS ORDERED: Potassium Chloride 40 MEQ, Lidocaine 1% 2 ML in 0.9 % Sodium Chloride 500 ML IVPB ONE (06:15)
[2020-06-23 06:25] LABS: Prothrombin Time 23.1 Seconds (9.4-12.1)
[2020-06-23 06:39] LABS: BUN/Creatinine Ratio 23 (6-26); Blood Urea Nitrogen 14 mg/dL (8-23); Calcium 8.8 mg/dL (8.6-10.3); Carbon Dioxide 28 mEq/L (23-29); Chloride 102 mEq/L (98-107); Glucose 98 mg/dL (70-105); Magnesium 1.1 mg/dL (1.6-2.6); Osmolality,Calculated 290 (280-300); Potassium 3.3 mEq/L (3.5-5.1); Sodium 140 mEq/L (136-145); Troponin I < 0.03 ng/mL (< 0.04); eGFR For African Americans > 60 (> 60); eGFR For Non-African Americans > 60 (> 60)
[2020-06-23] MEDS: Budesonide/Formoterol 160/4.5 1 PUFF INH IH SCH ×2 (07:40→20:17)
[2020-06-23] MEDS ORDERED: Regadenoson 0.4 MG/5 ML SYRINGE IVP ONE (07:45)
[2020-06-23] MEDS: clonazePAM 0.5 MG TABLET PO SCH ×3 (10:57→21:02)
[2020-06-23] MEDS: Dorzolamide OPTH 10 ML BOTTLE BOTH EYES SCH ×3 (10:57→21:02)
[2020-06-23] MEDS: acetaZOLAMIDE 250 MG TABLET PO SCH ×3 (10:57→21:01)
[2020-06-23] MEDS: (Cyclosporine [Restasis] 1 DROP) OP SCH ×2 (10:58→21:03)
[2020-06-23] MEDS: Magnesium Sulfate 1 GM/102 ML PIGGYBACK IVPB SCH ×3 (11:05→15:57)
[2020-06-23] MEDS ORDERED: *HR* Warfarin 5 MG TABLET PO ONE (18:00)
[2020-06-23] MEDS ORDERED: Warfarin perPT PO PRN (18:00)
[2020-06-23] MEDS: Latanoprost 2.5 ML BOTTLE BOTH EYES SCH (21:02)
[2020-06-23] MEDS ORDERED: 0.9 % Sodium Chloride 1,000 ML IVC SCH (21:30)
[2020-06-24 03:25] LABS: INR 1.9; Prothrombin Time 21.8 Seconds (9.4-12.1)
[2020-06-24 03:34] LABS: Basophils # 0.1 K/mcL (0.0-0.2); Eosinophils # 0.4 K/mcL (0.0-0.6); Eosinophils % 7.6 %; Hematocrit 34.3 % (35.3-44.9); Immature Granulocytes % 0.4 % (0-4); Lymphocytes % 19.6 %; Mean Corpuscular HGB Conc 30.6 g/dL (31.6-35.5); Mean Corpuscular Hemoglobin 32.1 pg (28.0-33.3); Mean Corpuscular Volume 104.9 fL (83.0-100.0); Mean Platelet Volume 10.3 fL (9.4-12.4); Monocytes # 0.5 K/mcL (0.0-1.3); Monocytes % 9.8 %; Neutrophils # 3.1 K/mcL (1.6-8.9); Platelet Count 250 K/mcL (140-400); Red Blood Count 3.27 M/mcL (3.82-4.97); Red Cell Distribution Width 13.1 % (11.5-14.5); Segmented Neutrophils % 61.6 %
[2020-06-24 03:43] LABS: Potassium 3.5 mEq/L (3.5-5.1)
[2020-06-24 03:50] LABS: Hemoglobin 10.5 g/dL (11.5-15.4)
[2020-06-24] MEDS: clonazePAM 0.5 MG TABLET PO SCH ×3 (08:24→20:53)
[2020-06-24] MEDS: lisinopriL 20 MG TABLET PO SCH ×2 (08:24→20:53)
[2020-06-24] MEDS: acetaZOLAMIDE 250 MG TABLET PO SCH ×3 (08:25→20:54)
[2020-06-24] MEDS: Insulin LISPRO 300 UNITS/3 ML VIAL SQ SCH ×4 (08:25→20:51)
[2020-06-24] MEDS: Budesonide/Formoterol 160/4.5 1 PUFF INH IH SCH ×2 (08:26→19:56)
[2020-06-24] MEDS: Dorzolamide OPTH 10 ML BOTTLE BOTH EYES SCH ×4 (08:27→21:07)
[2020-06-24] MEDS: (Cyclosporine [Restasis] 1 DROP) OP SCH ×2 (08:28→20:52)
[2020-06-24 08:56] LABS: Basophils % 0.6 %; Eosinophils # 0.4 K/mcL (0.0-0.6); Eosinophils % 8.4 %; Hematocrit 34.8 % (35.3-44.9); Immature Granulocytes % 0.2 % (0-4); Lymphocytes # 0.7 K/mcL (0.6-4.6); Lymphocytes % 12.9 %; Mean Corpuscular HGB Conc 31.6 g/dL (31.6-35.5); Mean Corpuscular Hemoglobin 32.7 pg (28.0-33.3); Mean Corpuscular Volume 103.6 fL (83.0-100.0); Mean Platelet Volume 10.3 fL (9.4-12.4); Monocytes # 0.4 K/mcL (0.0-1.3); Monocytes % 8.2 %; Neutrophils # 3.6 K/mcL (1.6-8.9); Platelet Count 248 K/mcL (140-400); Red Blood Count 3.36 M/mcL (3.82-4.97); Red Cell Distribution Width 13.2 % (11.5-14.5); Segmented Neutrophils % 69.7 %; White Blood Count 5.1 K/mcL (4.3-11.1)
[2020-06-24 09:03] LABS: BUN/Creatinine Ratio 18 (6-26); Blood Urea Nitrogen 16 mg/dL (8-23); Carbon Dioxide 21 mEq/L (23-29); Chloride 110 mEq/L (98-107); Glucose 149 mg/dL (70-105); Magnesium 1.8 mg/dL (1.6-2.6); Osmolality,Calculated 288 (280-300); Phosphorous 4.1 mg/dL (2.7-4.5); Potassium 3.9 mEq/L (3.5-5.1); Sodium 137 mEq/L (136-145); eGFR For African Americans > 60 (> 60); eGFR For Non-African Americans > 60 (> 60)
[2020-06-24] MEDS ORDERED: *HR* Warfarin 7.5 MG TABLET PO ONE (18:00)
[2020-06-24] MEDS: Latanoprost 2.5 ML BOTTLE BOTH EYES SCH ×2 (20:54→21:07)
[2020-06-25 05:14] LABS: Basophils % 0.5 %; Eosinophils # 0.5 K/mcL (0.0-0.6); Hematocrit 39.6 % (35.3-44.9); Hemoglobin 12.2 g/dL (11.5-15.4); Immature Granulocytes % 0.5 % (0-4); Lymphocytes % 12.8 %; Mean Corpuscular HGB Conc 30.8 g/dL (31.6-35.5); Mean Corpuscular Hemoglobin 32.1 pg (28.0-33.3); Mean Corpuscular Volume 104.2 fL (83.0-100.0); Mean Platelet Volume 10.7 fL (9.4-12.4); Monocytes # 0.8 K/mcL (0.0-1.3); Neutrophils # 5.3 K/mcL (1.6-8.9); Platelet Count 271 K/mcL (140-400); Red Cell Distribution Width 13.2 % (11.5-14.5); Segmented Neutrophils % 69.2 %; White Blood Count 7.6 K/mcL (4.3-11.1)
[2020-06-25 05:22] LABS: INR 1.7; Prothrombin Time 19.7 Seconds (9.4-12.1)
[2020-06-25 05:29] LABS: BUN/Creatinine Ratio 24 (6-26); Blood Urea Nitrogen 18 mg/dL (8-23); Calcium 8.8 mg/dL (8.6-10.3); Carbon Dioxide 21 mEq/L (23-29); Chloride 111 mEq/L (98-107); Glucose 170 mg/dL (70-105); Osmolality,Calculated 294 (280-300); Potassium 3.6 mEq/L (3.5-5.1); Sodium 139 mEq/L (136-145); eGFR For African Americans > 60 (> 60); eGFR For Non-African Americans > 60 (> 60)
[2020-06-25] MEDS: clonazePAM 0.5 MG TABLET PO SCH ×2 (07:52→20:58)
[2020-06-25] MEDS: acetaZOLAMIDE 250 MG TABLET PO SCH ×3 (07:52→21:05)
[2020-06-25] MEDS: Dorzolamide OPTH 10 ML BOTTLE BOTH EYES SCH ×3 (07:54→21:05)
[2020-06-25] MEDS: Insulin LISPRO 300 UNITS/3 ML VIAL SQ SCH ×4 (07:56→21:06)
[2020-06-25] MEDS: (Cyclosporine [Restasis] 1 DROP) OP SCH ×2 (07:56→20:58)
[2020-06-25] MEDS: lisinopriL 20 MG TABLET PO SCH ×2 (07:59→21:05)
[2020-06-25] MEDS: Budesonide/Formoterol 160/4.5 1 PUFF INH IH SCH ×2 (08:06→20:27)
[2020-06-25] MEDS ORDERED: *HR* Warfarin 7.5 MG TABLET PO ONE (18:00)
[2020-06-25] MEDS: Latanoprost 2.5 ML BOTTLE BOTH EYES SCH (21:06)
[2020-06-26 06:37] LABS: INR 2.4; Prothrombin Time 27.6 Seconds (9.4-12.1)
[2020-06-26] MEDS: clonazePAM 0.5 MG TABLET PO SCH ×2 (07:19→20:55)
[2020-06-26] MEDS: Budesonide/Formoterol 160/4.5 1 PUFF INH IH SCH ×2 (07:55→22:22)
[2020-06-26] MEDS: lisinopriL 20 MG TABLET PO SCH ×2 (08:13→20:51)
[2020-06-26] MEDS: (Cyclosporine [Restasis] 1 DROP) OP SCH ×2 (08:19→20:58)
[2020-06-26] MEDS: Insulin LISPRO 300 UNITS/3 ML VIAL SQ SCH ×4 (08:20→20:45)
[2020-06-26] MEDS: Dorzolamide OPTH 10 ML BOTTLE BOTH EYES SCH ×3 (08:21→20:56)
[2020-06-26] MEDS: acetaZOLAMIDE 250 MG TABLET PO SCH ×3 (08:24→20:51)
[2020-06-26] MEDS ORDERED: *HR* Warfarin 2.5 MG TABLET PO ONE (18:00)
[2020-06-26] MEDS: Latanoprost 2.5 ML BOTTLE BOTH EYES SCH (20:55)
[2020-06-27] MEDS: amLODIPine 5 MG TABLET PO SCH ×2 (00:13→08:41)
[2020-06-27 03:04] LABS: INR 3.2; Prothrombin Time 35.3 Seconds (9.4-12.1)
[2020-06-27] MEDS: Budesonide/Formoterol 160/4.5 1 PUFF INH IH SCH ×2 (08:01→20:29)
[2020-06-27] MEDS: Insulin LISPRO 300 UNITS/3 ML VIAL SQ SCH ×4 (08:40→21:50)
[2020-06-27] MEDS: acetaZOLAMIDE 250 MG TABLET PO SCH ×3 (08:41→21:49)
[2020-06-27] MEDS: lisinopriL 20 MG TABLET PO SCH ×2 (08:41→21:48)
[2020-06-27] MEDS: clonazePAM 0.5 MG TABLET PO SCH ×2 (08:41→21:49)
[2020-06-27] MEDS: Dorzolamide OPTH 10 ML BOTTLE BOTH EYES SCH ×3 (08:42→21:49)
[2020-06-27] MEDS: (Cyclosporine [Restasis] 1 DROP) OP SCH (08:42)
[2020-06-27] MEDS: Latanoprost 2.5 ML BOTTLE BOTH EYES SCH (21:49)
[2020-06-27 22:39] LABS: Adenovirus Not Detected (Not Detect); Bordetella Pertussis Not Detected (Not Detect); Chlamydophila pneumoniae Not Detected (Not Detect); Coronavirus 229E Not Detected (Not Detect); Coronavirus HKU1 Not Detected (Not Detect); Coronavirus NL63 Not Detected (Not Detect); Coronavirus OC43 Not Detected (Not Detect); Human Metapneumovirus Not Detected (Not Detect); Human Rhinovirus/Enterovirus Not Detected (Not Detect); Influenza A Subtype 2009 H1 Not Detected (Not Detect); Influenza B Not Detected (Not Detect); Mycoplasma pneumoniae Not Detected (Not Detect); Parainfluenza Virus 1 Not Detected (Not Detect); Parainfluenza Virus 2 Not Detected (Not Detect); Parainfluenza Virus 3 Not Detected (Not Detect); Parainfluenza Virus 4 Not Detected (Not Detect); Respiratory Syncytial Virus Not Detected (Not Detect); SARS-CoV-2 Not Detected (Not Detect)
[2020-06-28 07:07] LABS: INR 2.2
[2020-06-28 07:37] VITALS: BP 112/64
[2020-06-28] MEDS: Budesonide/Formoterol 160/4.5 1 PUFF INH IH SCH (08:05)
[2020-06-28] MEDS: amLODIPine 5 MG TABLET PO SCH (08:54)
[2020-06-28] MEDS: clonazePAM 0.5 MG TABLET PO SCH (08:54)
[2020-06-28] MEDS: acetaZOLAMIDE 250 MG TABLET PO SCH (08:55)
[2020-06-28] MEDS: lisinopriL 20 MG TABLET PO SCH (08:55)
[2020-06-28] MEDS: Insulin LISPRO 300 UNITS/3 ML VIAL SQ SCH (08:56)
[2020-06-28] MEDS: Dorzolamide OPTH 10 ML BOTTLE BOTH EYES SCH (08:56)
[2020-06-28] MEDS ORDERED: *HR* Warfarin 2.5 MG TABLET PO ONE (18:00)
== END 2020-06-28 11:30 | DRG 313 ==
LOC: EMEROOARM 18:46 → 3ANU 18:46 → SUATTDRO 06-23 00:04 → 3ANU 06-23 00:53 → SUATTDRO 06-24 13:02
PROVIDERS: ADMIT Internal Medicine; ATTEND Internal Medicine

== ENCOUNTER 2020-08-04 23:47 | Inpatient (IN) ==
[2020-08-05] MEDS ORDERED: Aspirin 81 MG TAB.CHEW PO STA (00:21)
[2020-08-05 00:53] LABS: Basophils % 0.4 %; Eosinophils # 0.2 K/mcL (0.0-0.6); Eosinophils % 2.4 %; Hematocrit 34.4 % (35.3-44.9); Hemoglobin 11.2 g/dL (11.5-15.4); Lymphocytes # 0.9 K/mcL (0.6-4.6); Lymphocytes % 10.2 %; Mean Corpuscular HGB Conc 32.6 g/dL (31.6-35.5); Mean Corpuscular Hemoglobin 30.7 pg (28.0-33.3); Mean Corpuscular Volume 94.2 fL (83.0-100.0); Mean Platelet Volume 10.4 fL (9.4-12.4); Monocytes # 0.8 K/mcL (0.0-1.3); Monocytes % 8.7 %; Neutrophils # 7.2 K/mcL (1.6-8.9); Platelet Count 396 K/mcL (140-400); Red Blood Count 3.65 M/mcL (3.82-4.97); Red Cell Distribution Width 13.1 % (11.5-14.5); Segmented Neutrophils % 77.3 %; White Blood Count 9.3 K/mcL (4.3-11.1)
[2020-08-05 00:57] LABS: Activated Partial Thrombo Time 76.9 Seconds (26.0-36.0)
[2020-08-05 00:59] LABS: BUN/Creatinine Ratio 40 (6-26); Blood Urea Nitrogen 32 mg/dL (8-23); Calcium 8.9 mg/dL (8.6-10.3); Carbon Dioxide 16 mEq/L (23-29); Chloride 108 mEq/L (98-107); Glucose 178 mg/dL (70-105); Osmolality,Calculated 295 (280-300); Potassium 3.6 mEq/L (3.5-5.1); Sodium 137 mEq/L (136-145); eGFR For African Americans > 60 (> 60); eGFR For Non-African Americans > 60 (> 60)
[2020-08-05 01:15] LABS: Prothrombin Time 75.5 Seconds (9.4-12.1)
[2020-08-05 01:16] LABS: INR 6.9
[2020-08-05 01:19] LABS: Troponin I < 0.03 ng/mL (< 0.04)
[2020-08-05 01:53] LABS: Adenovirus Not Detected (Not Detect); Bordetella Pertussis Not Detected (Not Detect); Chlamydophila pneumoniae Not Detected (Not Detect); Coronavirus 229E Not Detected (Not Detect); Coronavirus HKU1 Not Detected (Not Detect); Coronavirus NL63 Not Detected (Not Detect); Coronavirus OC43 Not Detected (Not Detect); Human Metapneumovirus Not Detected (Not Detect); Human Rhinovirus/Enterovirus Not Detected (Not Detect); Influenza A Subtype 2009 H1 Not Detected (Not Detect); Influenza B Not Detected (Not Detect); Mycoplasma pneumoniae Not Detected (Not Detect); Parainfluenza Virus 1 Not Detected (Not Detect); Parainfluenza Virus 2 Not Detected (Not Detect); Parainfluenza Virus 3 Not Detected (Not Detect); Parainfluenza Virus 4 Not Detected (Not Detect); Respiratory Syncytial Virus Not Detected (Not Detect); SARS-CoV-2 Not Detected (Not Detect)
[2020-08-05] MEDS ORDERED: Isovue-370 500 ML BOTTLE IVP ONE (03:05)
[2020-08-05] MEDS ORDERED: Ondansetron 4 MG/2 ML VIAL IVP PRN (03:33)
[2020-08-05] MEDS ORDERED: Naloxone 0.4 MG/ML INJ IVP PRN (03:33)
[2020-08-05] MEDS ORDERED: *HR* Promethazine 25 MG/ML VIAL IM PRN (03:33)
[2020-08-05] MEDS ORDERED: Acetaminophen 325 MG TABLET PO PRN (03:33)
[2020-08-05] MEDS ORDERED: *HR* Dextrose 50 % in Water (Vial) 50 ML VIAL IVP PRN (05:45)
[2020-08-05] MEDS ORDERED: D5% in Water 1,000 ML IVC PRN (05:45)
[2020-08-05] MEDS ORDERED: Dextrose Gel 15 GM/37.5 ML TUBE PO PRN ×2 (05:45)
[2020-08-05 06:07] LABS: VBG HCO3 18 mEq/L (21-27); VBG PCO2 33 mmHg (41-51); VBG PH 7.34 pH Units (7.32-7.42); VBG PO2 120 mmHg (25-50)
[2020-08-05 06:16] LABS: Prothrombin Time 80.2 Seconds (9.4-12.1)
[2020-08-05 06:17] LABS: INR 7.3
[2020-08-05 06:22] LABS: Basophils # 0.1 K/mcL (0.0-0.2); Basophils % 0.8 %; Eosinophils # 0.3 K/mcL (0.0-0.6); Eosinophils % 3.1 %; Hematocrit 32.4 % (35.3-44.9); Hemoglobin 10.4 g/dL (11.5-15.4); Immature Granulocytes % 0.6 % (0-4); Lymphocytes # 1.2 K/mcL (0.6-4.6); Lymphocytes % 14.4 %; Mean Corpuscular HGB Conc 32.1 g/dL (31.6-35.5); Mean Corpuscular Hemoglobin 29.8 pg (28.0-33.3); Mean Corpuscular Volume 92.8 fL (83.0-100.0); Mean Platelet Volume 9.9 fL (9.4-12.4); Monocytes # 0.8 K/mcL (0.0-1.3); Neutrophils # 5.7 K/mcL (1.6-8.9); Platelet Count 368 K/mcL (140-400); Red Blood Count 3.49 M/mcL (3.82-4.97); Red Cell Distribution Width 13.1 % (11.5-14.5); Segmented Neutrophils % 71.1 %
[2020-08-05 06:24] LABS: BUN/Creatinine Ratio 45 (6-26); Blood Urea Nitrogen 31 mg/dL (8-23); Calcium 8.7 mg/dL (8.6-10.3); Carbon Dioxide 16 mEq/L (23-29); Chloride 109 mEq/L (98-107); Chol/HDL Ratio 3.3 (0-4.9); Cholesterol 110 mg/dL (< 200); Glucose 126 mg/dL (70-105); HDL Cholesterol 33 mg/dL (40-59); LDL Cholesterol,Calculated 43 mg/dL (< 100); Magnesium 1.2 mg/dL (1.6-2.6); Osmolality,Calculated 290 (280-300); Potassium 3.9 mEq/L (3.5-5.1); Sodium 136 mEq/L (136-145); Triglycerides 170 mg/dL (< 150); Troponin I < 0.03 ng/mL (< 0.04); eGFR For African Americans > 60 (> 60); eGFR For Non-African Americans > 60 (> 60)
[2020-08-05] MEDS: Insulin LISPRO 300 UNITS/3 ML VIAL SQ SCH ×3 (07:47→17:40)
[2020-08-05] MEDS: Dorzolamide OPTH 10 ML BOTTLE BOTH EYES SCH ×3 (08:10→21:22)
[2020-08-05] MEDS: acetaZOLAMIDE 250 MG TABLET PO SCH ×3 (08:10→21:21)
[2020-08-05] MEDS: clonazePAM 0.5 MG TABLET PO SCH ×2 (08:10→21:22)
[2020-08-05] MEDS: lisinopriL 20 MG TABLET PO SCH ×2 (08:11→21:21)
[2020-08-05] MEDS: Budesonide/Formoterol 160/4.5 1 PUFF INH IH SCH ×2 (08:37→19:57)
[2020-08-05] MEDS ORDERED: Cyanocobalamin (B-12) 1,000 MCG/ML VIAL IM SCH (09:00)
[2020-08-05] MEDS ORDERED: Cyclosporine [Restasis] OP SCH (09:00)
[2020-08-05] MEDS ORDERED: Ergocalciferol (VIT D2) 50,000 UNIT (1.25MG) CAP PO SCH (09:00)
[2020-08-05] MEDS ORDERED: Perflutren Lipid Microsphere 1.3 ML in 0.9 % Sodium Chloride 8.7 ML IVP PRN (13:33)
[2020-08-05] MEDS: Latanoprost 2.5 ML BOTTLE BOTH EYES SCH (21:23)
[2020-08-05] MEDS: Insulin DETEMIR 100 UNIT/ML X5UNITS SQ SCH (21:24)
[2020-08-05] MEDS: Artificial Tears SOLN 15 ML BOTTLE BOTH EYES SCH (21:32)
[2020-08-06] MEDS: Insulin LISPRO 300 UNITS/3 ML VIAL SQ SCH ×4 (00:33→17:52)
[2020-08-06 06:10] LABS: Basophils % 0.5 %; Eosinophils # 0.2 K/mcL (0.0-0.6); Eosinophils % 3.1 %; Hematocrit 32.8 % (35.3-44.9); Hemoglobin 10.9 g/dL (11.5-15.4); Immature Granulocytes % 0.6 % (0-4); Lymphocytes # 0.7 K/mcL (0.6-4.6); Mean Corpuscular HGB Conc 33.2 g/dL (31.6-35.5); Mean Corpuscular Hemoglobin 30.8 pg (28.0-33.3); Mean Corpuscular Volume 92.7 fL (83.0-100.0); Mean Platelet Volume 10.2 fL (9.4-12.4); Monocytes # 0.7 K/mcL (0.0-1.3); Monocytes % 9.5 %; Platelet Count 393 K/mcL (140-400); Red Blood Count 3.54 M/mcL (3.82-4.97); Red Cell Distribution Width 12.8 % (11.5-14.5); Segmented Neutrophils % 77.3 %; White Blood Count 7.8 K/mcL (4.3-11.1)
[2020-08-06 06:27] LABS: BUN/Creatinine Ratio 34 (6-26); Blood Urea Nitrogen 20 mg/dL (8-23); Carbon Dioxide 19 mEq/L (23-29); Chloride 109 mEq/L (98-107); Glucose 63 mg/dL (70-105); Osmolality,Calculated 289 (280-300); Potassium 3.3 mEq/L (3.5-5.1); Sodium 139 mEq/L (136-145); eGFR For African Americans > 60 (> 60); eGFR For Non-African Americans > 60 (> 60)
[2020-08-06] MEDS: lisinopriL 20 MG TABLET PO SCH ×2 (09:28→20:29)
[2020-08-06] MEDS: clonazePAM 0.5 MG TABLET PO SCH ×2 (09:28→20:27)
[2020-08-06] MEDS: acetaZOLAMIDE 250 MG TABLET PO SCH ×3 (09:28→20:29)
[2020-08-06] MEDS: Dorzolamide OPTH 10 ML BOTTLE BOTH EYES SCH ×3 (09:30→20:28)
[2020-08-06] MEDS: Artificial Tears SOLN 15 ML BOTTLE BOTH EYES SCH ×2 (09:31→21:05)
[2020-08-06] MEDS: Budesonide/Formoterol 160/4.5 1 PUFF INH IH SCH ×2 (10:56→20:07)
[2020-08-06 11:11] LABS: INR 10.9; Prothrombin Time 117.9 Seconds (9.4-12.1)
[2020-08-06] MEDS: Latanoprost 2.5 ML BOTTLE BOTH EYES SCH (20:27)
[2020-08-06] MEDS: Insulin DETEMIR 100 UNIT/ML X5UNITS SQ SCH (20:29)
[2020-08-06 20:37] LABS: INR 1.6; Prothrombin Time 18.6 Seconds (9.4-12.1)
[2020-08-07] MEDS: Insulin LISPRO 300 UNITS/3 ML VIAL SQ SCH ×4 (05:07→16:42)
[2020-08-07 05:22] LABS: Basophils # 0.1 K/mcL (0.0-0.2); Basophils % 0.8 %; Eosinophils # 0.5 K/mcL (0.0-0.6); Eosinophils % 7.2 %; Hematocrit 34.5 % (35.3-44.9); Hemoglobin 10.9 g/dL (11.5-15.4); Immature Granulocytes % 0.9 % (0-4); Lymphocytes # 1.1 K/mcL (0.6-4.6); Lymphocytes % 16.8 %; Mean Corpuscular HGB Conc 31.6 g/dL (31.6-35.5); Mean Corpuscular Hemoglobin 30.1 pg (28.0-33.3); Mean Corpuscular Volume 95.3 fL (83.0-100.0); Mean Platelet Volume 10.1 fL (9.4-12.4); Monocytes # 0.9 K/mcL (0.0-1.3); Monocytes % 13.7 %; Platelet Count 372 K/mcL (140-400); Red Blood Count 3.62 M/mcL (3.82-4.97); Red Cell Distribution Width 12.8 % (11.5-14.5); Segmented Neutrophils % 60.6 %; White Blood Count 6.7 K/mcL (4.3-11.1)
[2020-08-07 05:42] LABS: BUN/Creatinine Ratio 25 (6-26); Blood Urea Nitrogen 14 mg/dL (8-23); Calcium 8.8 mg/dL (8.6-10.3); Carbon Dioxide 21 mEq/L (23-29); Chloride 111 mEq/L (98-107); Glucose 75 mg/dL (70-105); Osmolality,Calculated 287 (280-300); Potassium 3.7 mEq/L (3.5-5.1); Sodium 139 mEq/L (136-145); eGFR For African Americans > 60 (> 60); eGFR For Non-African Americans > 60 (> 60)
[2020-08-07] MEDS: lisinopriL 20 MG TABLET PO SCH (07:24)
[2020-08-07] MEDS: acetaZOLAMIDE 250 MG TABLET PO SCH ×2 (07:24→15:12)
[2020-08-07] MEDS: clonazePAM 0.5 MG TABLET PO SCH (07:24)
[2020-08-07] MEDS: Dorzolamide OPTH 10 ML BOTTLE BOTH EYES SCH ×2 (07:25→15:13)
[2020-08-07 09:47] LABS: INR 1.3; Prothrombin Time 14.5 Seconds (9.4-12.1)
[2020-08-07] MEDS: Budesonide/Formoterol 160/4.5 1 PUFF INH IH SCH (10:59)
[2020-08-07] MEDS: Artificial Tears SOLN 15 ML BOTTLE BOTH EYES SCH (11:46)
[2020-08-07 14:23] VITALS: BP 154/75
== END 2020-08-07 18:23 | disposition home health service (06) | DRG 303 ==
LOC: 3ANU 23:47 → EMEROOARM 23:47 → SUATTDRO 08-05 04:07 → 3ANU 08-05 04:26 → SUATTDRO 08-06 17:42
PROVIDERS: ADMIT Internal Medicine; ATTEND Student in an Organized Health Care Education/Training Program